=== PATIENT | male | born 1940 | race Caucasian/White ===

== ENCOUNTER 2016-04-27 11:10 | Inpatient (IN) ==
--- NOTE | 2016-04-26 21:06 | Discharge Summary ---
<Cristy Grady - Last Filed: 04/26/16 21:04> Date of Encounter: 04/26/16 - Discharge Diagnosis (1) Shoulder pain, right Priority: Primary Status: Acute Qualifiers: Chronicity: chronic Qualified Code(s): M25.511 - Pain in right shoulder; G89.29 - Other chronic pain (2) COPD (chronic obstructive pulmonary disease) Priority: Secondary Status: Chronic Qualifiers: COPD type: unspecified COPD Qualified Code(s): J44.9 - Chronic obstructive pulmonary disease, unspecified (3) Diabetes Priority: Secondary Status: Chronic Qualifiers: Diabetes mellitus type: type 2 Diabetes mellitus complication status: with unspecified complications Diabetes mellitus intermodal dispatcher insulin use: unspecified longterm insulin use status Qualified Code(s): E11.8 - Type 2 diabetes mellitus with unspecified complications (4) Hypercholesteremia Priority: Secondary Status: Chronic (5) Hypertension Priority: Secondary Status: Chronic Qualifiers: Hypertension type: essential hypertension Qualified Code(s): I10 - Essential (primary) hypertension (6) Obesities, morbid Priority: Secondary Status: Chronic Qualifiers: Obesity type: unspecified obesity type Qualified Code(s): E66.01 - Morbid ( severe) obesity due to excess calories (7) Sleep apnea Priority: Secondary Status: Chronic Qualifiers: Sleep apnea type: unspecified type Qualified Code(s): G47.30 - Sleep apnea , unspecified - Discharge Medications Home Medications: Aspirin Enteric Coated [Aspirin EC] 81 mg PO QAM 10/12/14 [History] Insulin Glargine,Hum.rec.anlog [Lantus Solostar] 30 unit SQ BID 10/12/14 [ History] Lisinopril [Zestril] 40 mg PO QAM 10/12/14 [History] Metformin [Glucophage] 1,000 mg PO BID 10/12/14 [History] Metoprolol [Lopressor] 100 mg PO BID 10/12/14 [History] Omeprazole [PriLOSEC] 20 mg PO QAM 10/12/14 [History] Bimatoprost [Lumigan] 1 drop OP QPM 03/29/15 [History] Dorzolamide HCl/Timolol Maleat [Cosopt Eye Drops] 1 drop OP BID 03/29/15 [ History] GlipiZIDE XL (24 HR) [Glucotrol XL] 10 mg PO BID 03/29/15 [History] Meloxicam [Mobic] 15 mg PO DAILY 03/29/15 [History] Simvastatin [Zocor] 40 mg PO HS 03/29/15 [History] Cyanocobalamin/Folic Acid [Vitamin P39-Irhyq Acid Tablet] 1 each PO DAILY #30 tablet 03/31/15 [Rx] Amlodipine [Norvasc] 10 mg PO DAILY 05/27/15 [History] OxyCODONE Immed Rel [Roxicodone 5 MG] 5 - 10 mg PO Q6HR PRN #40 tablet 04/26/16 [Rx] Meloxicam [Mobic] 15 mg PO DAILY 04/27/16 [History] Multivit-Min/FA/Lycopen/Lutein [Men 50 Plus Multivitamin Tab] 1 tab PO DAILY [History] Thiamine Mononitrate [Vitamin B-1] 100 mg PO DAILY 04/27/16 [History] Allergies/Adverse Reactions: Allergies codeine Adverse Reaction (Mild, Verified 10/24/14 12:35) Agitated Primary care physician: Desi Valdez CNP - Patient Status Disposition: Home, Self-Care Condition: Fair - Discharge Instructions Follow Up With: Seth Lau MD [Partnered Physician] - 05/26/16 10:05 am Cristy Grady PAC [Physician Rf Manager] - 07/08/16 10:00 am Desi Valdez CNP [Primary Care Provider] - 07/08/16 10:30 am - Hospital Course Hospital course: Mr. 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 (3) COPD (chronic obstructive pulmonary disease) Priority: Secondary Status: Chronic Qualifiers: COPD type: unspecified COPD Qualified Code(s): J44.9 - Chronic obstructive pulmonary disease, unspecified (4) Diabetes Priority: Secondary Status: Chronic Qualifiers: Diabetes mellitus type: type 2 Diabetes mellitus complication status: with unspecified complications Diabetes mellitus longterm insulin use: unspecified intermodal dispatcher insulin use status Qualified Code(s): E11.8 - Type 2 diabetes mellitus with unspecified complications (5) Hypercholesteremia Priority: Secondary Status: Chronic (6) Hypertension Priority: Secondary Status: Chronic (7) Obesities, morbid Priority: Secondary Status: Chronic Qualifiers: Obesity type: unspecified obesity type Qualified Code(s): E66.01 - Morbid ( severe) obesity due to excess calories (8) Sleep apnea Priority: Secondary Status: Chronic Qualifiers: Sleep apnea type: unspecified type Qualified Code(s): G47.30 - Sleep apnea , unspecified (9) PRAVEENA (acute kidney injury) Priority: Primary Status: Acute (10) Acute respiratory failure with hypoxia Priority: Primary Status: Acute (11) Hospital acquired PNA Priority: Primary Status: Acute (12) Hypomagnesemia Priority: Primary Status: Acute (13) Hypoxia Priority: Primary Status: Acute (14) Leucocytosis Priority: Primary Status: Acute Qualifiers: Leukocytosis type: unspecified Qualified Code(s): D72.829 - Elevated white blood cell count, unspecified Labs on day of discharge: Labs from last 24 hours 04/27/16 11:38 POC Glucose 161 H Primary care physician: Desi Valdez CNP - Patient Status Functional capacity at discharge: independent ambulation Overall status at discharge: patient is progressing back to baseline - Hospital Course Hospital course: Mr. Willis is a 75 year old male patient's postoperative course has been complicated by pulmonary issues related to COPD intubation sustaining pneumonia. Also leukocytosis acute kidney injury and other multiple medical problems. Patient was aggressively treated by the medical team. Patient has no documented organism. Patient with a previous resection with plus to the right shoulder new implant is located. Patient discharged in stable condition - Time Spent with Patient Total time spent providing and/or coordinating discharge services:
--- NOTE | 2016-04-27 11:19 | History & Physical Report ---
Date of Encounter: 04/27/16 Time of Encounter: 11:19 24 Hour HP Update - Instructions Instructions: If the History and Physical is less than 30 days old and was completed prior to A.M. admission and or procedure and has NOT been updated on calendar day of procedure please complete this update prior to performing procedure. - Update Patient reports changes in Medical Condition: No Changes in assessment/condition: No Changes in Medication: No Preop tests/diagnostics Reviewed: Yes Surgery Remains Indicated: Yes Consent for Planned Operative Procedure(s) Verified: Yes - Pre-Operative Checklist Preoperative Checklist Indicated: No Prophylactic Antibiotic Ordered: Yes Is VTE Prophylaxis Indicated?: Yes
[2016-04-27] MEDS ORDERED: Albuterol 2.5 MG/3 ML NEBULIZER ONE (11:33)
[2016-04-27] MEDS ORDERED: Vancomycin 1,750 MG in D5% in Water 500 ML IVPB ONE (11:38)
[2016-04-27] MEDS ORDERED: Albuterol 2.5 MG/3 ML NEBULIZER IH ONE (11:38)
[2016-04-27] MEDS ORDERED: *HR* Midazolam HCl 2 MG/2 ML VIAL ONE (11:43)
[2016-04-27] MEDS ORDERED: *HR* FentaNYL (PF) 100 MCG/2 ML VIAL ONE ×2 (11:43→12:30)
[2016-04-27] MEDS ORDERED: *HR* Propofol 200 MG/20 ML VIAL IVP ONE (11:43)
[2016-04-27] MEDS: Ringers Solution, Lactated 1,000 ML IVC SCH ×2 (11:47→17:27)
--- NOTE | 2016-04-27 12:06 | Anesthesia Evaluation PreOp ---
Date of Encounter: 04/27/16 Time of Encounter: 12:04 - Past History Planned Operation: Right Total Shoulder Revision Cardiac History: HTN, Hyperlipidemia Pulmonary History: COPD, AVILA Dx SIEBEL CONSULTANT History: Other (DM neuropathy, Herniated disc) Other Medical History: Diabetes Type II Anesthesia History: No Prior Anesthetic Complications, Past Anesthesia (Right shoulder x 2, R. shoulder I&D) Alcohol Use: none Drug use: none, other Medications and Allergies Aspirin Enteric Coated [Aspirin EC] 81 mg PO QAM 10/12/14 [History] Insulin Glargine,Hum.rec.anlog [Lantus Solostar] 30 unit SQ BID 10/12/14 [ History] Lisinopril [Zestril] 40 mg PO QAM 10/12/14 [History] Metformin [Glucophage] 1,000 mg PO BID 10/12/14 [History] Metoprolol [Lopressor] 100 mg PO BID 10/12/14 [History] Omeprazole [PriLOSEC] 20 mg PO QAM 10/12/14 [History] Bimatoprost [Lumigan] 1 drop OP QPM 03/29/15 [History] Dorzolamide HCl/Timolol Maleat [Cosopt Eye Drops] 1 drop OP BID 03/29/15 [ History] GlipiZIDE XL (24 HR) [Glucotrol XL] 10 mg PO BID 03/29/15 [History] Meloxicam [Mobic] 15 mg PO DAILY 03/29/15 [History] Simvastatin [Zocor] 40 mg PO HS 03/29/15 [History] Cyanocobalamin/Folic Acid [Vitamin U49-Knaor Acid Tablet] 1 each PO DAILY #30 tablet 03/31/15 [Rx] Amlodipine [Norvasc] 10 mg PO DAILY 05/27/15 [History] OxyCODONE Immed Rel [Roxicodone 5 MG] 5 - 10 mg PO Q6HR PRN #40 tablet 04/26/16 [Rx] Meloxicam [Mobic] 15 mg PO DAILY 04/27/16 [History] Multivit-Min/FA/Lycopen/Lutein [Men 50 Plus Multivitamin Tab] 1 tab PO DAILY [History] Thiamine Mononitrate [Vitamin B-1] 100 mg PO DAILY 04/27/16 [History] Allergies codeine Adverse Reaction (Mild, Verified 10/24/14 12:35) Agitated - Meds/Allergy Pre-op Review Medications Reviewed: Yes Allergies Reviewed: Yes Beta Blockers on Current Med List: Yes If Beta Blockers taken, Date/Time (Last Dose taken): 08:30 04/27/16 Anesthesia Results - Labs Laboratory Tests 04/13/16 04/13/16 04/13/16 11:15 11:15 11:15 WBC 6.9 Hgb 12.4 L Hct 39.6 Plt Count 255 INR 1.0 Sodium 139 Potassium 4.4 Chloride 104 Carbon Dioxide 25 BUN 14 Creatinine 0.91 - Imaging EKG: image reviewed (SR, 1st degree AV block, LAFB, LAD, Poor R wave progression ) Anesthesia Exam O2 Sat Height 1.73 m Height 1.73 m Height 1.73 m Weight 110.223 kg Weight 110.223 kg Weight 110.223 kg O2 Sat by Pulse Oximetry 94 Vital Signs Temp Pulse Resp BP Pulse Ox 98.2 F 88 18 130/77 94 L 04/27/16 11:41 04/27/16 11:41 04/27/16 11:41 04/27/16 11:41 04/27/16 11:41 Height: 5'8'' Weight: 240# NPO (# of Hours): > 8 hrs Pain Scale: 0 Pain Scale Used: Numeric (1 - 10) - HEENT Pupil (Motor): Pupils equal, EOMI Mallampati: III Teeth: Edentulous Oral Opening: Greater than 3 - SIEBEL CONSULTANT LOC: Oriented SIEBEL CONSULTANT Motor: Normal RUE, Normal LUE, Normal RLE, Normal LLE, Normal Face SIEBEL CONSULTANT Sensory: Normal: RUE, LUE, RLE, LLE, Face - Cardiac Rhythm: Regular Murmur: None JVD: No Carotid Bruit: No Anesthesia Assess/Plan ASA Score: 3 Modified [place] Scale for Level of Consciousness: Cooperative, oriented, and tranquil Anesthetic Plan: General, Regional (Brachial Plexus Block) Autologous Blood: Yes Monitoring Plan: Standard Monitors Recovery Plan: PACU
[2016-04-27] MEDS ORDERED: *HR* Labetalol 100 MG/20 ML MDV IVP PRN (12:11)
[2016-04-27] MEDS ORDERED: *HR* HYDROmorphone (PF) 1 MG/ML SYRINGE IVP PRN (12:11)
[2016-04-27] MEDS ORDERED: Ondansetron 4 MG/2 ML VIAL IVP ONE (12:11)
[2016-04-27] MEDS ORDERED: Lidocaine -MPF 2% 5 ML VIAL INFILT ONE (12:29)
[2016-04-27] MEDS ORDERED: Bupivacaine/EPI 1:200k 0.25%PF 10 ML VIAL INFILT ONE (12:30)
[2016-04-27] MEDS ORDERED: ROPIVACAINE HCL/PF 0.5% 30 ML VIAL ONE (12:30)
[2016-04-27] MEDS ORDERED: Ipratropium/Albuterol Neb 3 ML ONE ×3 (12:55→20:10)
[2016-04-27] MEDS ORDERED: Lidocaine -MPF 4% 5 ML AMPUL ONE (13:02)
--- NOTE | 2016-04-27 13:34 | Anesthesia Procedures ---
Date of Encounter: 04/27/16 Time of Encounter: 12:48 Procedures: Anesthesia - Nerve Block Procedure Date: 04/27/16 Time: 12:48 Surgical Procedure: right revision reversal ball and socket total shoulder Checklist: Correct Patient Identifier, Correct procedure, History checked Correct side: Right Monitor Applied: BP, Pulse Oximetry Supplemental Oxygen via Nasal Cannula (L/min): 3 Sedation: Fentanyl (mcg): 100 Indication: Post Op Analgesia Block Type: Interscalene (15), Supraclavicular (15), Other (scp 10ml) Catheter placed: No Sterile Technique: Yes Ultrasound used: Yes Anatomy identified: Yes Visual spread of Local: Yes Neuro Stimulation: Yes Nerve Stimulator Range: 0.2 - 0.4 mA Blood on Needle Aspiration: No Smooth Injection of Local: Yes Pain with Injection of Local: No Prep: Chlorhexadine Needle: 22 x 50 mm Stimuplex Local: Ropivacaine (30ml), Other (10 .25%bup with epi, 5 of 2%lido,) Volume (cc): 45 Number of Attempts: 1 Complications: None/effective block Vitals: vss though out, block per request of surgeon
[2016-04-27] MEDS ORDERED: EPHEDrine 50 MG/ML VIAL ONE (13:36)
[2016-04-27] MEDS ORDERED: Vancomycin 1,000 MG VIAL ONE (14:46)
--- NOTE | 2016-04-27 15:03 | Orthopedic Operative Note ---
Date of procedure: 04/27/16 Pre-op diagnosis: Painful dysfunctional right arm secondary to resection arthroplasty Post-op diagnosis: same Procedure: Procedure: Revision right total shoulder replacement reverse Estimated blood loss: 300 mL Hardware: Biomet 25 mm baseplate 1 6.5 central screw 4 4.5 peripheral screw, 41 mm +6 glenosphere here 12 x 100 stem 60 mm segment 42 proximal body +10 44 tray +3 41 retentive Jennifer Dictation of procedure: Patient brought to the operating room placed on the operating room table. After general anesthesia was administered the patient was placed in the modified beachchair position all pressure points padded appropriately the right upper extremity was prepped and draped in the sterile surgical fashion. The patient received IV antibiotics prior to skin incision. Incision was made through the old incision through skin and subcutaneous tissue hemostasis was obtained Bovie cautery. An extended deltopectoral approach was performed identifying the distal humeral shaft. Patient had extensive scar tissue cultures were obtained scar tissue was excised once the humerus is was exposed attention then turned to exposing the glenoid. Fluoroscopy was used to help identify the location due to the excessive scar tissue. Once the glenoid was exposed and defined there was a large bony formation that was excised from the posterior aspect of the upper arm in the pseudocapsule area. This is up subperiosteal dissection. Attention turned to the humerus. With fluoroscopic assistance it was reamed up to the 12 x 100 trial had good fit and fixation after broaching. Anterior and posterior Bankart retractors used to expose the glenoid the glenoid guide was seated the centering hole was made the glenoid was reamed the baseplate was seated and was fixed with one central screw 6.5 mm and 4 peripheral 4.5 screws. The baseplate was irrigated and dried and a 41 offset glenoid was seated and secured this was a +6 lateralized. The humeral trial was then assembled a 60 segment a 42 proximal body had stability with a +10 tray and the 41+3 constrained Jennifer. All components removed the stem was impacted in place followed by assembly of the body and the segment together on the back table which were impacted to the stem. Trial reduction with the +10 tray and the 41 constrained revealed excellent stability trials were removed real components were assembled on the back table and implanted. Patient had excellent stability. The wounds for 2 minutes with a Betadine saline solution. It was irrigated out to his pulse irrigation. Vancomycin para was present within the wound. The deltopectoral interval was closed with a running #2 FiberWire suture subcutaneous tissue closed deep and 1 PDS suture superficially with 0 PDS suture skin was closed with skin [place] patient placed in a sterile dressing abducted sling. Patient was extubated and transferred to recovery room stable condition. Anesthesia: GETA Surgeon: Seth Lau Condition: stable Disposition: PACU
[2016-04-27 15:56] LABS: Hematocrit 36.8 % (37.5-50.1); Hemoglobin 11.8 g/dL (12.9-16.9)
--- NOTE | 2016-04-27 17:38 | Anesthesia Evaluation Post Op ---
Date of Encounter: 04/27/16 Time of Encounter: 17:35 - Vital Signs Vital Signs: Vital Signs/O2 Sat/Glucose, Most Current Temp Pulse Resp BP Pulse Ox 04/27/16 17:17 98.7 F 85 28 101/69 97 04/27/16 17:07 86 28 92/62 95 04/27/16 16:57 85 26 77/55 95 04/27/16 16:47 98.8 F 87 24 78/57 94 L 04/27/16 16:37 89 24 101/65 91 L 04/27/16 16:27 95 24 110/75 93 L 04/27/16 16:17 98.9 F 91 24 113/71 91 L 04/27/16 16:07 92 24 103/72 91 L 04/27/16 15:57 89 24 106/70 91 L 04/27/16 15:47 98.9 F 87 24 118/74 95 04/27/16 15:37 87 20 111/74 97 04/27/16 15:27 92 20 119/74 93 L 04/27/16 15:17 99.3 F 93 16 124/81 88 L - Lungs Lungs: Clear Ascult./Percussion - Airway Airway: Non-obstructed - Cardiovascular Regular Rate - Mental Status Mental Status: Alert & Oriented, Answers Appropriately - Pain Pain Scale: 0 - Nausea Vomiting Nausea Vomiting: Not Present - Hydration Hydration: Ice chips - Discharge PostOp Status: Transfer Patient to floor
[2016-04-27] MEDS ORDERED: *HR* Enoxaparin 30 MG/0.3 ML SYRINGE SQ SCH (18:00)
[2016-04-27] MEDS ORDERED: Ringers Solution, Lactated 1,000 ML IVC SCH (18:06)
[2016-04-27] MEDS ORDERED: Ondansetron 4 MG/2 ML VIAL IVP PRN (18:06)
[2016-04-27] MEDS ORDERED: Dextrose Gel 15 GM PO PRN ×2 (18:06)
[2016-04-27] MEDS ORDERED: Sennosides 8.6 MG TABLET PO PRN (18:06)
[2016-04-27] MEDS ORDERED: D5% in Water 1,000 ML IV PRN (18:06)
[2016-04-27] MEDS ORDERED: NON-FORMULARY MEDICATION 1 EACH EACH (Bimatoprost [Lumigan] 1 DROP) OP SCH (18:06)
[2016-04-27] MEDS ORDERED: *HR* Dextrose 50 % in Water (Syg) 50 ML SYRINGE IVP PRN (18:06)
[2016-04-27] MEDS ORDERED: MOM Conc 10 ML UD.LIQ PO PRN (18:06)
[2016-04-27] MEDS ORDERED: Naloxone 0.4 MG/ML INJ IVP PRN (18:06)
[2016-04-27] MEDS ORDERED: Acetaminophen 325 MG TABLET PO PRN (18:06)
[2016-04-27] MEDS: Insulin LISPRO 300 UNITS/3 ML VIAL SQ SCH (18:58)
[2016-04-27] MEDS ORDERED: Ipratropium/Albuterol Neb 3 ML IH ONE (20:05)
[2016-04-27] MEDS: Metoprolol 100 MG TABLET PO SCH (21:54)
[2016-04-27] MEDS: Dorzolamide/Timolol OPTH 10 ML BOTTLE RIGHT EYE SCH (21:54)
[2016-04-27] MEDS: Insulin DETEMIR 100 UNIT/ML X5UNITS SQ SCH (21:54)
[2016-04-27] MEDS: ceFAZolin 2,000 MG in D5% in Water 100 ML IVPB SCH (21:55)
[2016-04-27] MEDS: Latanoprost 2.5 ML BOTTLE BOTH EYES SCH (21:55)
[2016-04-27] MEDS: *HR* HYDROmorphone (PF) 1 MG/ML SYRINGE IVP PRN (22:05)
[2016-04-28] MEDS: *HR* HYDROmorphone (PF) 1 MG/ML SYRINGE IVP PRN ×2 (01:20→22:45)
[2016-04-28] MEDS ORDERED: Ipratropium/Albuterol Neb 3 ML IH PRN (02:09)
--- NOTE | 2016-04-28 02:14 | Internal Medicine Consult Note ---
Date of Encounter: 04/28/16 Time of Encounter: 02:14 - Assessment and Plan (1) Acute respiratory failure with hypoxia Current Visit: Yes Status: Acute Assessment and plan: Pt is on BiPAP therapy. CXR showed limited lung volumes - repeat CXR requested and is pending at this time. If there is evidence of pneumonia - need IV antibiotics. (2) Hypomagnesemia Current Visit: Yes Status: Acute Assessment and plan: Replenish magnesium (3) Acute kidney injury Current Visit: Yes Status: Acute Assessment and plan: Treat with IV fluids. Monitor renal function. Hold metformin and meloxicam at this time. (4) Leucocytosis Current Visit: Yes Status: Acute Assessment and plan: Likely due to post surgical. But need to exclude infection. CXR and urinalysis requested - pending. Qualifiers: Leukocytosis type: unspecified Qualified Code(s): D72.829 - Elevated white blood cell count, unspecified Internal Medicine - CN: HPI - Data of Consult Patient: new to practice Consult date: 04/28/16 Requesting Physician: Seth Lau MD - Consult Narrative Reason for consult: Hypoxia History of present illness: Mr. Willis is a 75 year old male with past medical history significant for diabetes mellitus, hypertension, hyperlipidemia, glaucoma and arthritis was admitted to orthopedic service following revision of right total shoulder arthroplasty. Hospitalist team was consulted for management of hypoxia. RN reports that the patient had hypoxia with oxygen saturation in the mid 80s prior to his surgical procedure. Tonight, he is noted to have low oxygen saturations and required BiPAP therapy. Pt denies significant shortness of breath, cough, expectoration, chest pain, nausea, vomiting. He is not able to communicate well while he is on BiPAP Review of systems: 10 point review of systems attempted but limited as the pt is on BiPAP. Negative except for the above mentioned. Past Med Surg Social Fam HX - Past Medical History Medical history: arthritis, diabetes, GERD, glaucoma, hyperlipidemia, hypertension, other Psychiatric history: anxiety - Past Surgical History Surgical History: cholecystectomy, orthopedic, other, other - Social History Smoking Status: Former smoker Smokeless Tobacco Status: No Alcohol use: none Drug use: none, other - Family History Father Adopted: No Family Member Ethnicity: Non- Living Status: Unknown Hx Family Cardiac Disorders: Yes (HTN) Hx Family Respiratory Disorders: No Hx Family Cancer: No Hx Family GI Disorders: No Hx Family Endocrine Disorder: Yes (DM type 2) Hx Family Neuromuscular Disorders: No Hx Family Neurologic Disorders: No Hx Family HEENT Disorders: No Hx Family Autoimmune Disorders: No Internal Medicine - CN: Meds Aspirin Enteric Coated [Aspirin EC] 81 mg PO QAM 10/12/14 [History] Insulin Glargine,Hum.rec.anlog [Lantus Solostar] 30 unit SQ BID 10/12/14 [ History] Lisinopril [Zestril] 40 mg PO QAM 10/12/14 [History] Metformin [Glucophage] 1,000 mg PO BID 10/12/14 [History] Metoprolol [Lopressor] 100 mg PO BID 10/12/14 [History] Omeprazole [PriLOSEC] 20 mg PO QAM 10/12/14 [History] Bimatoprost [Lumigan] 1 drop OP QPM 03/29/15 [History] Dorzolamide HCl/Timolol Maleat [Cosopt Eye Drops] 1 drop OP BID 03/29/15 [ History] GlipiZIDE XL (24 HR) [Glucotrol XL] 10 mg PO BID 03/29/15 [History] Meloxicam [Mobic] 15 mg PO DAILY 03/29/15 [History] Simvastatin [Zocor] 40 mg PO HS 03/29/15 [History] Cyanocobalamin/Folic Acid [Vitamin R47-Jbqkg Acid Tablet] 1 each PO DAILY #30 tablet 03/31/15 [Rx] Amlodipine [Norvasc] 10 mg PO DAILY 05/27/15 [History] OxyCODONE Immed Rel [Roxicodone 5 MG] 5 - 10 mg PO Q6HR PRN #40 tablet 04/26/16 [Rx] Meloxicam [Mobic] 15 mg PO DAILY 04/27/16 [History] Multivit-Min/FA/Lycopen/Lutein [Men 50 Plus Multivitamin Tab] 1 tab PO DAILY [History] Thiamine Mononitrate [Vitamin B-1] 100 mg PO DAILY 04/27/16 [History] Allergies codeine Adverse Reaction (Mild, Verified 10/24/14 12:35) Agitated Internal Medicine - CN: Exam - Constitutional Vitals: Temp Pulse Resp BP Pulse Ox 97.7 F 86 22 133/75 91 L 04/28/16 00:04 04/28/16 00:04 04/28/16 00:04 04/28/16 00:04 04/28/16 00:04 Exam: General: Not in acute distress at the time of my evaluation HEENT: BiPAP mask in place Neck: No obvious neck swellings Lungs: B/L air entry present. No significant wheeze present Cardiac: Regular rate and rhythm. No significant murmurs Abdomen: Soft, non tender. Bowel sounds present Neurological: Somnulent. arousable No gross localizing deficits Psych: Not aggressive or agitated Extremities: B/L leg edema present. Sling to the right arm. Skin: No generalized rash Internal Medicine - CN: Reslt - Labs CBC & Chem 7: 04/28/16 03:06 04/28/16 03:06 Labs: Short CBC 04/27/16 Range/Units 15:36 Hgb 11.8 L (12.9-16.9) g/dL Hct 36.8 L (37.5-50.1) % - EKG Data -: EKG Interpreted by Myself EKG shows normal: sinus rhythm Rate: tachycardia - EKG Data EKG comments: possible 1st degree AV block 04/28/16 06:22 - Impressions Impressions ITS Impressions Shoulder X-Ray 04/27/16 00:01 IMPRESSION: Status post reverse right shoulder replacement surgery. D/ / 04/27/2016 16:19:03 Betito Henning MD / schuyler Interpreting Provider: Betito Henning MD Shoulder X-Ray 04/27/16 13:15 IMPRESSION: Right shoulder revision arthroplasty with fluoroscopic guidance as above. D/ / Jaylen Win MD / Jaylen Win MD Interpreting Provider: Jaylen Win MD Chest X-Ray 04/28/16 01:47 IMPRESSION: Limited low lung volume portable chest with bibasilar airspace disease favored to represent atelectasis. Superimposed pneumonia cannot be excluded. A repeat study with deep inspiration may be useful when the patient is clinically able D/ / Yuri Jacinto MD / Yuri Jacinto MD Interpreting Provider: Yuri Jacinto MD Consult Discharge Plan - Plan Referrals: Seth Lau MD [Partnered Physician] - 05/26/16 10:05 am Cristy Grady PAC [Physician Civil Project Engineer] - 07/08/16 10:00 am Desi Valdez SOAPING MACHINE BACK TENDER [Primary Care Provider] - 07/08/16 10:30 am
[2016-04-28 02:37] LABS: ABG Base Excess 0.6 mEq/L (-2.0 to 3.0); ABG Oxygen Saturation 96 % (95-98); ABG PCO2 44 mmHg (35-45); ABG PH 7.38 pH Units (7.32-7.45); ABG PO2 84 mmHg (85-104); ABG TCO2 27.4 mEq/L (20-26)
[2016-04-28 02:38] LABS: Blood Gas FiO2 60 %
[2016-04-28] MEDS: ceFAZolin 2,000 MG in D5% in Water 100 ML IVPB SCH (02:50)
[2016-04-28 03:33] LABS: Hematocrit 35.7 % (37.5-50.1); Hemoglobin 11.2 g/dL (12.9-16.9); Mean Corpuscular HGB Conc 31.4 g/dL (31.6-35.5); Mean Corpuscular Hemoglobin 26.7 pg (28.0-33.3); Mean Corpuscular Volume 85.2 fL (83.0-100.0); Mean Platelet Volume 9.4 fL (9.4-12.4); Platelet Count 236 K/mcL (140-400); Red Blood Count 4.19 M/mcL (4.19-5.50); Red Cell Distribution Width 15.6 % (11.5-14.5)
[2016-04-28 03:52] LABS: Alanine Aminotransferase 29 Units/L (0-55); Albumin 3.1 g/dL (3.5-5.0); Albumin/Globulin Ratio 0.8 (1.1-2.2); Alkaline Phosphatase 62 Units/L (38-126); Aspartate Amino Transferase 26 Units/L (5-34); BUN/Creatinine Ratio 13 (6-26); Bilirubin,Total 0.5 mg/dL (0.2-1.2); Blood Urea Nitrogen 18 mg/dL (8-26); Calcium 8.2 mg/dL (8.6-10.8); Carbon Dioxide 23 mEq/L (19-29); Chloride 101 mEq/L (98-109); Globulin 3.7 g/dL (2.4-3.5); Glucose 217 mg/dL (70-99); Magnesium 1.3 mg/dL (1.6-2.6); Osmolality,Calculated 288 (280-300); Potassium 4.5 mEq/L (3.5-4.5); Sodium 135 mEq/L (136-145); Total Protein 6.8 g/dL (6.0-8.3); eGFR For African Americans > 60 (> 60); eGFR For Non-African Americans 50 (> 60)
[2016-04-28] MEDS ORDERED: Magnesium Sulfate 2 GM in D5% in Water 100 ML IVPB ONE (05:13)
[2016-04-28] MEDS: *HR* Enoxaparin 30 MG/0.3 ML SYRINGE SQ SCH ×2 (05:56→17:13)
[2016-04-28] MEDS: Ipratropium/Albuterol Neb 3 ML IH SCH ×4 (06:18→21:42)
--- NOTE | 2016-04-28 06:34 | Orthopedics Progress Note ---
Date of Encounter: 04/28/16 Time of Encounter: 06:32 - Assessment and Plan (1) Bone loss Current Visit: Yes Status: Acute (2) Shoulder pain, right Current Visit: No Status: Acute Qualifiers: Chronicity: chronic Qualified Code(s): M25.511 - Pain in right shoulder; G89.29 - Other chronic pain (3) COPD (chronic obstructive pulmonary disease) Current Visit: No Status: Chronic Qualifiers: COPD type: unspecified COPD Qualified Code(s): J44.9 - Chronic obstructive pulmonary disease, unspecified (4) Diabetes Current Visit: No Status: Chronic Qualifiers: Diabetes mellitus type: type 2 Diabetes mellitus complication status: with unspecified complications Diabetes mellitus petroleum terminal plant operator insulin use: unspecified care home insulin use status Qualified Code(s): E11.8 - Type 2 diabetes mellitus with unspecified complications (5) Hypercholesteremia Current Visit: No Status: Chronic (6) Obesities, morbid Current Visit: No Status: Chronic Qualifiers: Obesity type: unspecified obesity type Qualified Code(s): E66.01 - Morbid ( severe) obesity due to excess calories (7) Sleep apnea Current Visit: No Status: Chronic Qualifiers: Sleep apnea type: unspecified type Qualified Code(s): G47.30 - Sleep apnea , unspecified Subjective Interval history: Patient was seen this morning doing well exacerbation of COPD Afebrile vital signs stable. Operative extremity: Neurovascularly intact Dressing bloody drainage, change today Calves nontender Assessment and plan: Continue with postoperative care hematocrit 35 plan discharge tomorrow Objective Vital signs: Vital Signs Temp Pulse Resp BP Pulse Ox 04/28/16 04:00 97.8 F 81 24 135/75 96 04/28/16 00:04 97.7 F 86 22 133/75 91 L 04/27/16 20:45 97.5 F L 104 21 131/73 91 L 04/27/16 20:23 30 94 L 04/27/16 19:45 98.5 F 104 30 104/70 94 L 04/27/16 18:58 92 L 04/27/16 18:42 94 22 116/69 93 L 04/27/16 18:11 97.8 F 90 20 113/83 96 04/27/16 17:45 97.6 F 88 20 126/60 96 04/27/16 17:37 87 24 106/71 98 04/27/16 17:27 87 26 101/68 97 04/27/16 17:17 98.7 F 85 28 101/69 97 04/27/16 17:07 86 28 92/62 95 04/27/16 16:57 85 26 77/55 95 04/27/16 16:47 98.8 F 87 24 78/57 94 L 04/27/16 16:37 89 24 101/65 91 L 04/27/16 16:27 95 24 110/75 93 L 04/27/16 16:17 98.9 F 91 24 113/71 91 L 04/27/16 16:07 92 24 103/72 91 L 04/27/16 15:57 89 24 106/70 91 L 04/27/16 15:47 98.9 F 87 24 118/74 95 04/27/16 15:37 87 20 111/74 97 04/27/16 15:27 92 20 119/74 93 L 04/27/16 15:17 99.3 F 93 16 124/81 88 L 04/27/16 12:58 95 155/97 92 L 04/27/16 12:21 89 125/85 94 L 04/27/16 11:41 98.2 F 88 18 130/77 94 L Intake and Output 04/27/16 04/27/16 04/28/16 15:59 23:59 07:59 Intake Total 1340 / 1340 100 / 100 Output Total 200 / 200 400 / 400 Balance -200 / -200 940 / 940 100 / 100 Intake: IV Fluids 1100 / 1100 100 / 100 Lactated Ringers 1,000 ML 1000 / 1000 @ 25 mls/hr IVC .Q24H BOZENA Rx#:[id number] Ancef 2,000 MG In 100 / 100 100 / 100 Dextrose 5% 100 ML @ 200 mls/hr IVPB Q8H BOZENA Rx#: [id number] Oral 240 / 240 Output: Urine 400 / 400 Estimated Blood Loss 200 / 200 Other: Weight 110.223 kg Blood Glucose* 182 225 - Labs CBC & BMP: 04/28/16 03:06 04/28/16 03:06 Labs: Abnormal lab results WBC 14.2 K/mcL (4.3-11.1) H 04/28/16 03:06 Hgb 11.2 g/dL (12.9-16.9) L 04/28/16 03:06 Hct 35.7 % (37.5-50.1) L 04/28/16 03:06 MCH 26.7 pg (28.0-33.3) L 04/28/16 03:06 MCHC 31.4 g/dL (31.6-35.5) L 04/28/16 03:06 RDW 15.6 % (11.5-14.5) H 04/28/16 03:06 ABG pO2 84 mmHg (85-104) L 04/28/16 02:30 ABG Total CO2 27.4 mEq/L (20-26) H 04/28/16 02:30 Sodium 135 mEq/L (136-145) L 04/28/16 03:06 Creatinine 1.39 mg/dL (0.72-1.25) H 04/28/16 03:06 Est GFR (Non-Af Amer) 50 (> 60) L 04/28/16 03:06 Glucose 217 mg/dL (70-99) H 04/28/16 03:06 POC Glucose 225 (58-89) H 04/27/16 20:13 Calcium 8.2 mg/dL (8.6-10.8) L 04/28/16 03:06 Magnesium 1.3 mg/dL (1.6-2.6) L 04/28/16 03:06 B-Natriuretic Peptide 132 pg/mL (0-100) H 04/28/16 03:06 Albumin 3.1 g/dL (3.5-5.0) L 04/28/16 03:06 Globulin 3.7 g/dL (2.4-3.5) H 04/28/16 03:06 Albumin/Globulin Ratio 0.8 (1.1-2.2) L 04/28/16 03:06 - VTE Documentation of Mechanical Device: Venous foot pump, device Consult Discharge Plan - Plan Referrals: Seth Lau MD [Partnered Physician] - 05/26/16 10:05 am Cristy Grady, PAC [Physician Window Covering Sales Consultant] - 07/08/16 10:00 am Desi Valdez, GRANTS ANALYST [Primary Care Provider] - 07/08/16 10:30 am
[2016-04-28] MEDS ORDERED: *HR* Metformin 500 MG TABLET PO SCH (08:00)
[2016-04-28] MEDS: Lisinopril 20 MG TABLET PO SCH (08:13)
[2016-04-28] MEDS: amLODIPine 5 MG TABLET PO SCH (08:13)
[2016-04-28] MEDS: *HR* OxyCODONE Immed Rel 5 MG TABLET PO PRN ×3 (08:14→20:38)
[2016-04-28] MEDS: *HR* GlipiZIDE XL (24 HR) 10 MG TABLET PO SCH ×2 (08:15→17:13)
[2016-04-28] MEDS: Aspirin Enteric Coated 81 MG Tablet PO SCH (08:15)
[2016-04-28] MEDS: Thiamine (B-1) 100 MG TABLET PO SCH (08:15)
[2016-04-28] MEDS: Multivit/Ca/Min/Fe/FA 1 TAB TABLET PO SCH (08:15)
[2016-04-28] MEDS: Cyanocobalamin (B-12) 1,000 MCG TABLET PO SCH (08:15)
[2016-04-28] MEDS: Insulin LISPRO 300 UNITS/3 ML VIAL SQ SCH ×3 (08:16→17:13)
[2016-04-28] MEDS: 0.9 % Sodium Chloride 1,000 ML IVC SCH (08:17)
--- NOTE | 2016-04-28 09:41 | Internal Med Progress Note ---
Date of Encounter: 04/28/16 Time of Encounter: 09:39 - Assessment and plan (1) Hypoxia Current Visit: Yes Status: Acute Assessment and plan: s/p revision of right total shoulder arthroplasty. was noted to be hypoxic, still requiring 6 l of oxygen , spo2 low 90s. has h/o AVILA, non compliant with CPAP. CXR done reviewed, shows low lung volumes with no signs of pneumonia, just possible atelectasis. he denies chest pain or sob, low prob for PE..lung exam with no wheeezing. abg shows no hypercarbia, has hypoxia only. hypoxia most likely 2/2 hypoventilation post surgical procedure. continue to titrate o2 via nasal cannula, adjust pain meds for better pain control. incentive spirometry encouraged , avoid lying in bed and to sit on the chair as tolerated. early ambulation emphasized. DVT prophylaxis. If above measures faile to improve oxygenation, will get CT chest. (2) Shoulder pain, right Current Visit: Yes Status: Acute Assessment and plan: management as per ortho Qualifiers: Chronicity: chronic Qualified Code(s): M25.511 - Pain in right shoulder; G89.29 - Other chronic pain (3) Diabetes Current Visit: No Status: Chronic Qualifiers: Diabetes mellitus type: type 2 Diabetes mellitus complication status: with unspecified complications Diabetes mellitus intermediate card tender insulin use: unspecified intermediate card tender insulin use status Qualified Code(s): E11.8 - Type 2 diabetes mellitus with unspecified complications (4) Sleep apnea Current Visit: No Status: Chronic Assessment and plan: emphasized the use of CPAP at home , does not seem to be interested and says everyone has AVILA. Qualifiers: Sleep apnea type: unspecified type Qualified Code(s): G47.30 - Sleep apnea , unspecified - Time Spent With Patient 25 - 35 minutes - Subjective Interval history: Seen at the bedside, complaining of some pain on the right shoulder. Sitting on the chair, was transitioned to nasal cannula and on 6 L this morning. Has been on BiPAP last night. Chest x-ray did not show any signs of pneumonia. Denies any chest pain or cough or shortness of breath. Appears in no acute respiratory distress. - Constitutional Vitals: Temp Pulse Resp BP Pulse Ox 99.7 F H 82 20 112/71 95 04/28/16 06:37 04/28/16 08:08 04/28/16 06:37 04/28/16 09:32 04/28/16 06:37 General appearance: Present: A&O X 3, no acute distress Exam: Neck supple. Chest bilateral clear, no added sounds. CVS S1-S2, no murmurs rubs or gallops. Abdomen soft, obese, nontender, bowel sounds are present. Extremities no edema, right shoulder brace present, mild decreased ROM neuro- no focal defecits/ Internal Medicine: Result - Labs CBC & Chem 7: 04/28/16 03:06 04/28/16 03:06 Labs: Short CBC 04/27/16 04/28/16 Range/Units 15:36 03:06 WBC 14.2 H (4.3-11.1) K/mcL Hgb 11.8 L 11.2 L (12.9-16.9) g/dL Hct 36.8 L 35.7 L (37.5-50.1) % Plt Count 236 (140-400) K/mcL BMP 04/28/16 03:06 Sodium 135 L Potassium 4.5 Chloride 101 Carbon Dioxide 23 BUN 18 Creatinine 1.39 H Glucose 217 H Calcium 8.2 L Liver Function 04/28/16 Range/Units 03:06 Total Bilirubin 0.5 (0.2-1.2) mg/dL AST 26 (5-34) Units/L ALT 29 (0-55) Units/L Alkaline Phosphatase 62 (38-126) Units/L Albumin 3.1 L (3.5-5.0) g/dL - ABG Interpretation ABG results: ABG ABG pH 7.38 pH Units (7.32-7.45) 04/28/16 02:30 ABG pCO2 44 mmHg (35-45) 04/28/16 02:30 ABG pO2 84 mmHg (85-104) L 04/28/16 02:30 ABG O2 Saturation 96 % (95-98) 04/28/16 02:30 - Impressions Impressions Shoulder X-Ray 04/27/16 00:01 IMPRESSION: Status post reverse right shoulder replacement surgery. D/ / 04/27/2016 16:19:03 Betito Henning MD / schuyler Interpreting Provider: Betito Henning MD Shoulder X-Ray 04/27/16 13:15 IMPRESSION: Right shoulder revision arthroplasty with fluoroscopic guidance as above. D/ / Jaylen Win MD / Jaylen Win MD Interpreting Provider: Jaylen Win MD Chest X-Ray 04/28/16 01:47 IMPRESSION: Limited low lung volume portable chest with bibasilar airspace disease favored to represent atelectasis. Superimposed pneumonia cannot be excluded. A repeat study with deep inspiration may be useful when the patient is clinically able. D/ / 04/28/2016 07:22:51 Yuri Jacinto MD / schuyler Interpreting Provider: Yuri Jacinto MD Chest X-Ray 04/28/16 05:09 IMPRESSION: Low lung volumes with improved bibasilar atelectasis. D/ / Eligio Yang MD / Eligio Yang MD Interpreting Provider: Eligio Yang MD - VTE Documentation of Mechanical Device: Venous foot pump, device Consult Discharge Plan - Plan Referrals: Seth Lau MD [Partnered Physician] - 05/26/16 10:05 am Cristy Grady PAC [Physician Radial Router Operator] - 07/08/16 10:00 am Desi Valdez CNP [Primary Care Provider] - 07/08/16 10:30 am
[2016-04-28] MEDS: Metoprolol 100 MG TABLET PO SCH ×2 (10:02→20:39)
[2016-04-28] MEDS: Dorzolamide/Timolol OPTH 10 ML BOTTLE RIGHT EYE SCH ×2 (10:02→20:38)
[2016-04-28] MEDS: Insulin DETEMIR 100 UNIT/ML X5UNITS SQ SCH ×2 (10:38→20:39)
--- NOTE | 2016-04-28 16:34 | Electrocardiograph Report ---
[place] [id number] Test Date: 2016-04-27 Pat Name: Manoj Willis Department: 114 Room: [facility] Gender: M Senior Planning Manager: : 1940 Requested By: Seth Lau Order Number: [id number] Reading MD: Misael Palmer Measurements Intervals [place] Rate: 103 P: 255 NV: 201 QRS: -47 QRSD: 118 T: 40 QT: 343 QTc: 403 Interpretive Statements SINUS TACHYCARDIA FIRST DEGREE AV BLOCK MODERATE VOLTAGE CRITERIA FOR LVH INTRAVENTRICULAR CONDUCTION DELAY Electronically Signed On 04-28-2016 16:32:39 EST by Misael Palmer
--- NOTE | 2016-04-28 17:55 | Event Note ---
Date of Encounter: 04/28/16 Time of Encounter: 17:45 Patient awake, alert and sitting up about to eat dinner. No concerns or questions at this time other than the drainage on dressing. Patient had active drainage with bottom 25% of optifoam saturated. Optifoam removed and source of active drainage found in distal portion of incision. added 4 [place] to this area. No further active drainage expressed with palpation around this area. New optifoam dressing applied. Patient tolerated this well.
[2016-04-28 17:56] LABS: ABG Base Excess 1.3 mEq/L (-2.0 to 3.0); ABG HCO3 26.6 mEQ/L (21-27); ABG Oxygen Saturation 84 % (95-98); ABG PCO2 44 mmHg (35-45); ABG PH 7.39 pH Units (7.32-7.45)
[2016-04-28 17:57] LABS: Blood Gas FiO2 32 %; Blood Gas Liter Flow 3 L/MIN
[2016-04-28 18:00] LABS: ABG PO2 49 mmHg (85-104)
[2016-04-28 20:34] LABS: Bilirubin,Urine Negative (Negative); Blood,Urine Negative (Negative); Clarity,Urine Cloudy (Clear); Color,Urine Yellow (Yellow); Glucose,Urine (UA) 100 mg/dL (Normal); Ketones,Urine Negative (Negative); Leukocyte Esterase,Urine Small (Negative); Nitrite,Urine Negative (Negative); PH,Urine 5.5 pH Units (5.0-8.0); Protein,Urine 30 mg/dL (Neg-Trace); Specific Gravity,Urine 1.027 (1.010-1.025); Urobilinogen,Urine Normal (Normal)
[2016-04-28 20:36] LABS: Bacteria,Urine None Seen per hpf (None-Few); Hyaline Casts,Urine None Seen per lpf (None-Few); Squamous Epithelial Cell,Urine Many per lpf (None-Few); WBC,Urine 15-30 per hpf (0-3)
[2016-04-28] MEDS: Latanoprost 2.5 ML BOTTLE BOTH EYES SCH (20:38)
[2016-04-29] MEDS: 0.9 % Sodium Chloride 1,000 ML IVC SCH ×2 (00:06→14:00)
[2016-04-29] MEDS ORDERED: Levofloxacin 750 MG/150 ML 750 MG/150 ML BAG IVPB ONE (00:59)
[2016-04-29 04:23] LABS: Basophils % 0.1 %; Eosinophils # 0.1 K/mcL (0.0-0.6); Eosinophils % 0.6 %; Hematocrit 33.1 % (37.5-50.1); Hemoglobin 10.2 g/dL (12.9-16.9); Immature Granulocytes % 0.5 % (0-4); Lymphocytes # 1.7 K/mcL (0.6-4.6); Lymphocytes % 12.6 %; Mean Corpuscular HGB Conc 30.8 g/dL (31.6-35.5); Mean Corpuscular Hemoglobin 26.7 pg (28.0-33.3); Mean Corpuscular Volume 86.6 fL (83.0-100.0); Mean Platelet Volume 8.8 fL (9.4-12.4); Monocytes # 1.6 K/mcL (0.0-1.3); Monocytes % 11.4 %; Neutrophils # 10.2 K/mcL (1.6-8.9); Platelet Count 214 K/mcL (140-400); Red Blood Count 3.82 M/mcL (4.19-5.50); Red Cell Distribution Width 15.7 % (11.5-14.5); Segmented Neutrophils % 74.8 %
[2016-04-29] MEDS: Ipratropium/Albuterol Neb 3 ML IH SCH ×4 (04:35→22:44)
[2016-04-29 04:38] LABS: BUN/Creatinine Ratio 18 (6-26); Blood Urea Nitrogen 25 mg/dL (8-26); Calcium 7.6 mg/dL (8.6-10.8); Carbon Dioxide 24 mEq/L (19-29); Chloride 99 mEq/L (98-109); Glucose 181 mg/dL (70-99); Magnesium 1.5 mg/dL (1.6-2.6); Osmolality,Calculated 283 (280-300); Potassium 4.3 mEq/L (3.5-4.5); Sodium 132 mEq/L (136-145); eGFR For African Americans > 60 (> 60); eGFR For Non-African Americans 50 (> 60)
[2016-04-29] MEDS: *HR* Enoxaparin 30 MG/0.3 ML SYRINGE SQ SCH ×2 (06:12→17:33)
[2016-04-29] MEDS: Thiamine (B-1) 100 MG TABLET PO SCH (07:46)
[2016-04-29] MEDS: *HR* GlipiZIDE XL (24 HR) 10 MG TABLET PO SCH ×2 (07:46→17:33)
[2016-04-29] MEDS: amLODIPine 5 MG TABLET PO SCH (07:46)
[2016-04-29] MEDS: Cyanocobalamin (B-12) 1,000 MCG TABLET PO SCH (07:46)
[2016-04-29] MEDS: Multivit/Ca/Min/Fe/FA 1 TAB TABLET PO SCH (07:47)
[2016-04-29] MEDS: Insulin LISPRO 300 UNITS/3 ML VIAL SQ SCH ×4 (07:47→22:48)
[2016-04-29] MEDS: Aspirin Enteric Coated 81 MG Tablet PO SCH (07:47)
[2016-04-29] MEDS: Lisinopril 20 MG TABLET PO SCH (07:47)
[2016-04-29] MEDS: Metoprolol 100 MG TABLET PO SCH ×2 (07:47→21:32)
--- NOTE | 2016-04-29 07:52 | Orthopedics Progress Note ---
Date of Encounter: 04/29/16 Time of Encounter: 07:51 - Assessment and Plan (1) Bone loss Current Visit: Yes Status: Acute (2) Shoulder pain, right Current Visit: No Status: Acute Qualifiers: Chronicity: chronic Qualified Code(s): M25.511 - Pain in right shoulder; G89.29 - Other chronic pain (3) COPD (chronic obstructive pulmonary disease) Current Visit: No Status: Chronic Qualifiers: COPD type: unspecified COPD Qualified Code(s): J44.9 - Chronic obstructive pulmonary disease, unspecified (4) Diabetes Current Visit: No Status: Chronic Qualifiers: Diabetes mellitus type: type 2 Diabetes mellitus complication status: with unspecified complications Diabetes mellitus exterminator insulin use: unspecified senior care insulin use status Qualified Code(s): E11.8 - Type 2 diabetes mellitus with unspecified complications (5) Hypercholesteremia Current Visit: No Status: Chronic (6) Obesities, morbid Current Visit: No Status: Chronic Qualifiers: Obesity type: unspecified obesity type Qualified Code(s): E66.01 - Morbid ( severe) obesity due to excess calories (7) Sleep apnea Current Visit: No Status: Chronic Qualifiers: Sleep apnea type: unspecified type Qualified Code(s): G47.30 - Sleep apnea , unspecified Subjective Interval history: Patient was seen this morning still with breathing issues related to his COPD. Afebrile vital signs stable. Operative extremity: Neurovascularly intact Dressing clean dry and intact Calves nontender Assessment and plan: Continue with postoperative care continue to monitor his breathing for discharge tomorrow Objective Vital signs: Vital Signs Temp Pulse Resp BP Pulse Ox 04/29/16 07:12 98.9 F 100 18 128/76 92 L 04/29/16 05:28 99.8 F H 89 20 118/77 94 L 04/29/16 04:36 22 93 L 04/29/16 00:36 99.7 F H 82 16 111/73 95 04/28/16 21:44 23 98 04/28/16 18:16 100 04/28/16 17:35 90 L 04/28/16 15:46 18 90 L 04/28/16 15:09 18 90 L 04/28/16 14:42 99.8 F H 84 20 113/72 85 L 04/28/16 14:17 93 L 04/28/16 12:26 91 L 02/28/17 11:23 99.2 F 79 20 122/77 93 L 04/28/16 11:12 92 L 04/28/16 10:37 20 87 L 04/28/16 10:36 92 L 04/28/16 10:27 90 L 04/28/16 09:58 93 90 L 04/28/16 09:32 112/71 04/28/16 08:08 82 99/67 Intake and Output 04/28/16 04/28/16 04/29/16 15:59 23:59 07:59 Intake Total 120 / 120 1000 / 1000 Output Total 425 / 425 300 / 300 200 / 200 Balance -305 / -305 700 / 700 -200 / -200 Intake: IV Fluids 1000 / 1000 0.9 % Sodium Chloride 1, 1000 / 1000 000 ML @ 80 mls/hr IVC . [id number] Rx#: [id number] Oral 120 / 120 Output: Urine 425 / 425 300 / 300 200 / 200 Other: Meal Lunch Percent of Meal Consumed 75% Blood Glucose* 257 144 180 - Labs CBC & BMP: 04/29/16 04:06 04/29/16 04:06 Labs: Abnormal lab results WBC 13.6 K/mcL (4.3-11.1) H 04/29/16 04:06 RBC 3.82 M/mcL (4.19-5.50) L 04/29/16 04:06 Hgb 10.2 g/dL (12.9-16.9) L 04/29/16 04:06 Hct 33.1 % (37.5-50.1) L 04/29/16 04:06 MCH 26.7 pg (28.0-33.3) L 04/29/16 04:06 MCHC 30.8 g/dL (31.6-35.5) L 04/29/16 04:06 RDW 15.7 % (11.5-14.5) H 04/29/16 04:06 MPV 8.8 fL (9.4-12.4) L 04/29/16 04:06 Neutrophils # 10.2 K/mcL (1.6-8.9) H 04/29/16 04:06 Monocytes # 1.6 K/mcL (0.0-1.3) H 04/29/16 04:06 ABG pO2 49 mmHg (85-104) L* 04/28/16 17:50 ABG Total CO2 28.0 mEq/L (20-26) H 04/28/16 17:50 ABG O2 Saturation 84 % (95-98) L 04/28/16 17:50 Sodium 132 mEq/L (136-145) L 04/29/16 04:06 Creatinine 1.39 mg/dL (0.72-1.25) H 04/29/16 04:06 Est GFR (Non-Af Amer) 50 (> 60) L 04/29/16 04:06 Glucose 181 mg/dL (70-99) H 04/29/16 04:06 POC Glucose 180 (58-89) H 04/29/16 07:11 Calcium 7.6 mg/dL (8.6-10.8) L 04/29/16 04:06 Magnesium 1.5 mg/dL (1.6-2.6) L 04/29/16 04:06 B-Natriuretic Peptide 132 pg/mL (0-100) H 04/28/16 03:06 Albumin 3.1 g/dL (3.5-5.0) L 04/28/16 03:06 Globulin 3.7 g/dL (2.4-3.5) H 04/28/16 03:06 Albumin/Globulin Ratio 0.8 (1.1-2.2) L 04/28/16 03:06 Urine Clarity Cloudy (Clear) A 04/28/16 20:25 Ur Specific [place] 1.027 (1.010-1.025) H 04/28/16 20:25 Urine Protein 30 mg/dL (Neg-Trace) H 04/28/16 20:25 Urine Glucose (UA) 100 mg/dL (Normal) H 04/28/16 20:25 Ur Leukocyte Esterase Small (Negative) H 04/28/16 20:25 Urine Microscopic RBC 5-15 per hpf (0-3) H 04/28/16 20:25 Urine Microscopic WBC 15-30 per hpf (0-3) H 04/28/16 20:25 Ur Squamous Epith Cells Many per lpf (None-Few) H 04/28/16 20:25 Ur Culture Indicated? YES (NO) A 04/28/16 20:25 - VTE Documentation of Mechanical Device: Venous foot pump, device Consult Discharge Plan - Plan Referrals: Seth Lau MD [Partnered Physician] - 05/26/16 10:05 am Cristy Grady PAC [Physician Furnace Helper] - 07/08/16 10:00 am Desi Valdez CNP [Primary Care Provider] - 07/08/16 10:30 am
[2016-04-29] MEDS: Insulin DETEMIR 100 UNIT/ML X5UNITS SQ SCH ×2 (07:55→21:32)
[2016-04-29] MEDS: Dorzolamide/Timolol OPTH 10 ML BOTTLE RIGHT EYE SCH ×2 (07:55→21:32)
--- NOTE | 2016-04-29 09:50 | Internal Med Progress Note ---
Date of Encounter: 04/29/16 Time of Encounter: 09:47 - Assessment and plan (1) Hypoxia Current Visit: Yes Status: Acute Assessment and plan: s/p revision of right total shoulder arthroplasty. medicine consulted for hypoxia, has h/o AVILA, non compliant with CPAP. CTA done yesterday shows no PE but showed b/l atelectasis vs pneumonia. he denies chest pain or sob, low prob for PE..lung exam with no wheeezing. will emperically start on IV antibiotics as he has a temp spike of 103 now. blood cx x2, send urine for strep and legionella antigen. incentive spirometry encouraged DVT prophylaxis. (2) Shoulder pain, right Current Visit: Yes Status: Acute Assessment and plan: management as per ortho Qualifiers: Chronicity: chronic Qualified Code(s): M25.511 - Pain in right shoulder; G89.29 - Other chronic pain (3) Diabetes Current Visit: No Status: Chronic Qualifiers: Diabetes mellitus type: type 2 Diabetes mellitus complication status: with unspecified complications Diabetes mellitus snf insulin use: unspecified snf insulin use status Qualified Code(s): E11.8 - Type 2 diabetes mellitus with unspecified complications (4) Sleep apnea Current Visit: No Status: Chronic Assessment and plan: emphasized the use of CPAP at home , does not seem to be interested and says everyone has AVILA. Qualifiers: Sleep apnea type: unspecified type Qualified Code(s): G47.30 - Sleep apnea , unspecified (5) Hospital acquired PNA Current Visit: Yes Status: Acute Assessment and plan: as in hypoxia. was intubated for the orthopedic surgery. may have acquired from that, currently temp of 103. have started IV antibiotics vanco, zosyn and levoflox. follow blood cx, sputum for gram stain and cx if he brings out any. - Time Spent With Patient 25 - 35 minutes - Subjective Interval history: Seen at the bedside, complaining of some pain on his hips. Sitting on the chair, was transitioned to nasal cannula, now at 3 l. was placed on BIPAP last night as he desated to 80s ABG at that time showed po2 of 49 CTA was done which was negative for PE, it shows b/l consolidation s/o atelectasis. Denies any chest pain or cough or shortness of breath. Appears in no acute respiratory distress. - Constitutional Vitals: Temp Pulse Resp BP Pulse Ox 98.9 F 100 18 128/76 92 L 04/29/16 07:12 04/29/16 07:12 04/29/16 07:12 04/29/16 07:12 04/29/16 07:12 General appearance: Present: A&O X 3, no acute distress Exam: Neck supple. Chest bilateral clear, no added sounds. CVS S1-S2, no murmurs rubs or gallops. Abdomen soft, obese, nontender, bowel sounds are present. Extremities no edema, right shoulder brace present, mild decreased ROM neuro- no focal defecits/ Internal Medicine: Result - Labs CBC & Chem 7: 04/29/16 04:06 04/29/16 04:06 Labs: Short CBC 04/29/16 Range/Units 04:06 WBC 13.6 H (4.3-11.1) K/mcL Hgb 10.2 L (12.9-16.9) g/dL Hct 33.1 L (37.5-50.1) % Plt Count 214 (140-400) K/mcL Neutrophils # 10.2 H (1.6-8.9) K/mcL BMP 04/28/16 04/29/16 19:07 04:06 Sodium 132 L Potassium 4.3 Chloride 99 Carbon Dioxide 24 BUN 25 Creatinine 1.46 H 1.39 H Glucose 181 H Calcium 7.6 L Urine 04/28/16 Range/Units 20:25 Urine Color Yellow (Yellow) Urine Clarity Cloudy A (Clear) Urine pH 5.5 (5.0-8.0) pH Units Ur Specific [place] 1.027 H (1.010-1.025) Urine Protein 30 H (Neg-Trace) mg/dL Urine Glucose (UA) 100 H (Normal) mg/dL - ABG Interpretation ABG results: ABG ABG pH 7.39 pH Units (7.32-7.45) 04/28/16 17:50 ABG pCO2 44 mmHg (35-45) 04/28/16 17:50 ABG pO2 49 mmHg (85-104) L* 04/28/16 17:50 ABG O2 Saturation 84 % (95-98) L 04/28/16 17:50 - Impressions Impressions Shoulder X-Ray 04/28/16 06:23 IMPRESSION: Stable postsurgical changes from reversed right total shoulder arthroplasty. D/ / 04/28/2016 15:46:47 Braulio Hill MD / Chloe Fuller Interpreting Provider: Braulio Hill MD Chest CTA 04/28/16 18:25 IMPRESSION: No evidence of pulmonary embolism. Partial consolidation involving both lower lobes, the right middle lobe, and lingula. Findings may be related to atelectasis and/or pneumonia. D/ / Mago Foss MD / Mago Foss MD Interpreting Provider: Mago Foss MD - VTE Documentation of Mechanical Device: Venous foot pump, device Consult Discharge Plan - Plan Referrals: Seth Lau MD [Partnered Physician] - 05/26/16 10:05 am Cristy Grady, PAC [Physician District Manager In Training] - 07/08/16 10:00 am Desi Valdez, CAN FEEDER [Primary Care Provider] - 07/08/16 10:30 am
[2016-04-29] MEDS: *HR* OxyCODONE Immed Rel 5 MG TABLET PO PRN (11:30)
[2016-04-29] MEDS: *HR* HYDROmorphone (PF) 1 MG/ML SYRINGE IVP PRN (13:50)
[2016-04-29] MEDS: Piperacillin/Tazobactam 3.375 GM in D5% in Water (Mini-Bag+) 100 ML IVPB SCH ×2 (13:51→21:31)
[2016-04-29] MEDS ORDERED: Levofloxacin 500 MG/100 ML 500 MG/100 ML BAG IVPB SCH (16:14)
[2016-04-29] MEDS: Vancomycin 1,750 MG in D5% in Water 500 ML IVPB SCH (17:30)
[2016-04-29] MEDS ORDERED: Acetaminophen IV 1,000 MG/100 ML INFUS..BTL IVPB PRN (18:49)
[2016-04-29] MEDS: Latanoprost 2.5 ML BOTTLE BOTH EYES SCH (21:32)
[2016-04-29 22:10] LABS: VBG HCO3 24.3 mEq/L (21-27); VBG PH 7.37 pH Units (7.32-7.42)
[2016-04-30] MEDS: 0.9 % Sodium Chloride 1,000 ML IVC SCH ×2 (02:35→17:15)
[2016-04-30] MEDS: Ipratropium/Albuterol Neb 3 ML IH SCH ×4 (04:49→21:19)
[2016-04-30] MEDS: Vancomycin 1,750 MG in D5% in Water 500 ML IVPB SCH (04:51)
[2016-04-30 05:25] LABS: Basophils % 0.1 %; Hematocrit 29.1 % (37.5-50.1); Hemoglobin 9.4 g/dL (12.9-16.9); Immature Granulocytes % 0.9 % (0-4); Lymphocytes % 7.6 %; Mean Corpuscular HGB Conc 32.3 g/dL (31.6-35.5); Mean Corpuscular Hemoglobin 27.6 pg (28.0-33.3); Mean Corpuscular Volume 85.6 fL (83.0-100.0); Mean Platelet Volume 9.5 fL (9.4-12.4); Monocytes # 1.9 K/mcL (0.0-1.3); Monocytes % 8.3 %; Platelet Count 203 K/mcL (140-400); Red Cell Distribution Width 15.7 % (11.5-14.5); Segmented Neutrophils % 83.1 %
[2016-04-30 05:26] LABS: Lymphocytes # 1.7 K/mcL (0.6-4.6)
[2016-04-30] MEDS: Piperacillin/Tazobactam 3.375 GM in D5% in Water (Mini-Bag+) 100 ML IVPB SCH ×3 (05:39→20:04)
[2016-04-30] MEDS: *HR* Enoxaparin 30 MG/0.3 ML SYRINGE SQ SCH ×2 (05:39→16:57)
[2016-04-30 05:45] LABS: Calcium 7.7 mg/dL (8.6-10.8)
[2016-04-30 06:10] LABS: Potassium 4.3 mEq/L (3.5-4.5)
--- NOTE | 2016-04-30 08:12 | Orthopedics Progress Note ---
Date of Encounter: 04/30/16 Time of Encounter: 08:11 - Assessment and Plan (1) Bone loss Current Visit: Yes Status: Acute (2) Shoulder pain, right Current Visit: No Status: Acute Qualifiers: Chronicity: chronic Qualified Code(s): M25.511 - Pain in right shoulder; G89.29 - Other chronic pain (3) COPD (chronic obstructive pulmonary disease) Current Visit: No Status: Chronic Qualifiers: COPD type: unspecified COPD Qualified Code(s): J44.9 - Chronic obstructive pulmonary disease, unspecified (4) Diabetes Current Visit: No Status: Chronic Qualifiers: Diabetes mellitus type: type 2 Diabetes mellitus complication status: with unspecified complications Diabetes mellitus terminal operations manager insulin use: unspecified fci insulin use status Qualified Code(s): E11.8 - Type 2 diabetes mellitus with unspecified complications (5) Hypercholesteremia Current Visit: No Status: Chronic (6) Obesities, morbid Current Visit: No Status: Chronic Qualifiers: Obesity type: unspecified obesity type Qualified Code(s): E66.01 - Morbid ( severe) obesity due to excess calories (7) Sleep apnea Current Visit: No Status: Chronic Qualifiers: Sleep apnea type: unspecified type Qualified Code(s): G47.30 - Sleep apnea , unspecified Subjective Interval history: Patient was seen this morning still with breathing issues spiking fever to 103 elevated white count concern for hospital acquired pneumonia. Afebrile vital signs stable MAXIMUM TEMPERATURE 103. Operative extremity: Neurovascularly intact Dressing clean dry and intact Calves nontender Assessment and plan: Continue with postoperative care continue to monitor his breathing on IV antibiotics continue plan as per hospitalist Objective Vital signs: Vital Signs Temp Pulse Resp BP Pulse Ox 04/30/16 06:30 98.3 F 98 20 142/66 91 L 04/30/16 04:57 98.6 F 97 19 137/75 89 L 04/30/16 01:13 97.9 F 86 20 118/70 91 L 04/29/16 22:44 18 93 L 04/29/16 20:48 98.9 F 99 24 113/76 91 L 04/29/16 20:00 102.8 F H 64 26 128/72 96 04/29/16 16:21 24 124/73 100 04/29/16 15:24 103 F H 70 24 124/73 100 04/29/16 10:58 24 97 04/29/16 10:55 98.3 F 62 18 110/73 94 L Intake and Output 04/29/16 04/30/16 04/30/16 23:59 07:59 15:59 Intake Total 700 / 700 100 / 100 Output Total 500 / 500 250 / 250 Balance 200 / 200 -150 / -150 Intake: IV Fluids 700 / 700 100 / 100 Ofirmev 1,000 mg In 100 100 / 100 ml @ 400 mls/hr IVPB Q6HR PRN Rx#:[id number] Zosyn 3.375 GM In 100 / 100 100 / 100 Dextrose 5% (Minibag+) 100 ML 100 ML @ 25 mls/hr IVPB Q8H BOZENA Rx#: [id number] Vancocin 1,750 MG In 500 / 500 Dextrose 5% 500 ML @ 334. 014 mls/hr IVPB Q12H BOZENA Rx#:[id number] Oral 0 / 0 Output: Urine 250 / 250 Straight Cath 500 / 500 Other: Blood Glucose* 276 227 - Labs CBC & BMP: 04/30/16 05:00 04/30/16 05:00 Labs: Abnormal lab results WBC 22.9 K/mcL (4.3-11.1) H D 04/30/16 05:00 RBC 3.40 M/mcL (4.19-5.50) L 04/30/16 05:00 Hgb 9.4 g/dL (12.9-16.9) L 04/30/16 05:00 Hct 29.1 % (37.5-50.1) L 04/30/16 05:00 MCH 27.6 pg (28.0-33.3) L 04/30/16 05:00 RDW 15.7 % (11.5-14.5) H 04/30/16 05:00 Neutrophils # 19.0 K/mcL (1.6-8.9) H 04/30/16 05:00 Monocytes # 1.9 K/mcL (0.0-1.3) H 04/30/16 05:00 ABG pO2 49 mmHg (85-104) L* 04/28/16 17:50 ABG Total CO2 28.0 mEq/L (20-26) H 04/28/16 17:50 ABG O2 Saturation 84 % (95-98) L 04/28/16 17:50 VBG pO2 78 mmHg (25-40) H 04/29/16 22:00 Sodium 132 mEq/L (136-145) L 04/30/16 05:00 BUN 31 mg/dL (8-26) H 04/30/16 05:00 Creatinine 2.09 mg/dL (0.72-1.25) H D 04/30/16 05:00 Est GFR ( Amer) 38 (> 60) L 04/30/16 05:00 Est GFR (Non-Af Amer) 31 (> 60) L 04/30/16 05:00 Glucose 160 mg/dL (70-99) H 04/30/16 05:00 POC Glucose 227 (58-89) H 04/30/16 06:53 Calcium 7.7 mg/dL (8.6-10.8) L 04/30/16 05:00 Magnesium 1.5 mg/dL (1.6-2.6) L 04/29/16 04:06 B-Natriuretic Peptide 132 pg/mL (0-100) H 04/28/16 03:06 Albumin 3.1 g/dL (3.5-5.0) L 04/28/16 03:06 Globulin 3.7 g/dL (2.4-3.5) H 04/28/16 03:06 Albumin/Globulin Ratio 0.8 (1.1-2.2) L 04/28/16 03:06 Urine Clarity Cloudy (Clear) A 04/28/16 20:25 Ur Specific [place] 1.027 (1.010-1.025) H 04/28/16 20:25 Urine Protein 30 mg/dL (Neg-Trace) H 04/28/16 20:25 Urine Glucose (UA) 100 mg/dL (Normal) H 04/28/16 20:25 Ur Leukocyte Esterase Small (Negative) H 04/28/16 20:25 Urine Microscopic RBC 5-15 per hpf (0-3) H 04/28/16 20:25 Urine Microscopic WBC 15-30 per hpf (0-3) H 04/28/16 20:25 Ur Squamous Epith Cells Many per lpf (None-Few) H 04/28/16 20:25 Ur Culture Indicated? YES (NO) A 04/28/16 20:25 - VTE Documentation of Mechanical Device: Venous foot pump, device Consult Discharge Plan - Plan Referrals: Seth Lau MD [Partnered Physician] - 05/26/16 10:05 am Cristy Grady, PAC [Physician Timber Supervisor] - 07/08/16 10:00 am Desi Valdez CNP [Primary Care Provider] - 07/08/16 10:30 am
[2016-04-30] MEDS: Aspirin Enteric Coated 81 MG Tablet PO SCH (08:33)
[2016-04-30] MEDS: Multivit/Ca/Min/Fe/FA 1 TAB TABLET PO SCH (08:33)
[2016-04-30] MEDS: Thiamine (B-1) 100 MG TABLET PO SCH (08:33)
[2016-04-30] MEDS: *HR* GlipiZIDE XL (24 HR) 10 MG TABLET PO SCH ×2 (08:33→16:58)
[2016-04-30] MEDS: Lisinopril 20 MG TABLET PO SCH (08:33)
[2016-04-30] MEDS: Metoprolol 100 MG TABLET PO SCH ×2 (08:33→20:04)
[2016-04-30] MEDS: Cyanocobalamin (B-12) 1,000 MCG TABLET PO SCH (08:34)
[2016-04-30] MEDS: amLODIPine 5 MG TABLET PO SCH (08:36)
[2016-04-30] MEDS: Dorzolamide/Timolol OPTH 10 ML BOTTLE RIGHT EYE SCH ×2 (08:36→20:17)
[2016-04-30] MEDS: Insulin LISPRO 300 UNITS/3 ML VIAL SQ SCH ×4 (08:37→22:23)
[2016-04-30] MEDS: Insulin DETEMIR 100 UNIT/ML X5UNITS SQ SCH ×2 (08:42→22:23)
[2016-04-30] MEDS: *HR* OxyCODONE Immed Rel 5 MG TABLET PO PRN (08:42)
--- NOTE | 2016-04-30 10:04 | Internal Med Progress Note ---
Date of Encounter: 04/30/16 Time of Encounter: 10:02 - Assessment and plan (1) Sepsis Current Visit: Yes Status: Acute Assessment and plan: severe sepsis 2/2 HAP. leucocytosis of 22 today. follow blood cx and sputum results continue IV antibiotics,IV fluids Qualifiers: Sepsis type: sepsis due to unspecified organism Qualified Code(s): A41.9 - Sepsis, unspecified organism (2) Hypoxia Current Visit: Yes Status: Acute Assessment and plan: s/p revision of right total shoulder arthroplasty. medicine consulted for hypoxia, CTA done, did not show any PE. shows no PE but showed b/l atelectasis vs pneumonia. he denies chest pain or sob, low prob for PE..lung exam with no wheeezing. spiked temp of 103 yesterday, started on IV antibiotics. blood cx x2, send urine for strep and legionella antigen. incentive spirometry encouraged DVT prophylaxis. (3) Shoulder pain, right Current Visit: Yes Status: Acute Assessment and plan: management as per ortho Qualifiers: Chronicity: chronic Qualified Code(s): M25.511 - Pain in right shoulder; G89.29 - Other chronic pain (4) Diabetes Current Visit: No Status: Chronic Qualifiers: Diabetes mellitus type: type 2 Diabetes mellitus complication status: with unspecified complications Diabetes mellitus senior living insulin use: unspecified senior living insulin use status Qualified Code(s): E11.8 - Type 2 diabetes mellitus with unspecified complications (5) Sleep apnea Current Visit: No Status: Chronic Assessment and plan: emphasized the use of CPAP at home , does not seem to be interested and says everyone has AVILA. Qualifiers: Sleep apnea type: unspecified type Qualified Code(s): G47.30 - Sleep apnea , unspecified (6) Hospital acquired PNA Current Visit: Yes Status: Acute Assessment and plan: as in hypoxia. was intubated for the orthopedic surgery. may have acquired from that, no temp spike today. have started IV antibiotics vanco, zosyn and levoflox. will need to continue IV antibiotics follow blood cx, sputum for gram stain and cx. (7) PRAVEENA (acute kidney injury) Current Visit: Yes Status: Acute Assessment and plan: most likely 2/2 sepsis. will continue to monitor. - Time Spent With Patient 25 - 35 minutes - Subjective Interval history: Seen at the bedside Sitting on the chair, was able to answer questions appropriately. he denies chest pain but says he has cough though he is not bringing out too much on nasal cannula at 3-4 l and sating 91-92% does not appear to be in acute respiratory distress and is speaking in full sentences. - Constitutional Vitals: Temp Pulse Resp BP Pulse Ox 98.3 F 98 20 142/66 91 L 04/30/16 06:30 04/30/16 06:30 04/30/16 06:30 04/30/16 06:30 04/30/16 06:30 General appearance: Present: A&O X 3, no acute distress Exam: neck- supple chest- b/l decreased breath sounds at the bases, no wheezing or creptns cvs- s1 and s2, no mr//g abd- soft ,non tender, bs are present ext- no edema, right arm on arm splint neuro- no focal defecits, alert and awake and answers appropriately. Internal Medicine: Result - Labs CBC & Chem 7: 04/30/16 05:00 04/30/16 05:00 Labs: Short CBC 04/30/16 Range/Units 05:00 WBC 22.9 H D (4.3-11.1) K/mcL Hgb 9.4 L (12.9-16.9) g/dL Hct 29.1 L (37.5-50.1) % Plt Count 203 (140-400) K/mcL Neutrophils # 19.0 H (1.6-8.9) K/mcL BMP 04/30/16 05:00 Sodium 132 L Potassium 4.3 Chloride 101 Carbon Dioxide 21 BUN 31 H Creatinine 2.09 H D Glucose 160 H Calcium 7.7 L - ABG Interpretation ABG results: ABG ABG pH 7.39 pH Units (7.32-7.45) 04/28/16 17:50 ABG pCO2 44 mmHg (35-45) 04/28/16 17:50 ABG pO2 49 mmHg (85-104) L* 04/28/16 17:50 ABG O2 Saturation 84 % (95-98) L 04/28/16 17:50 - VTE Documentation of Mechanical Device: Venous foot pump, device Consult Discharge Plan - Plan Referrals: Seth Lau MD [Partnered Physician] - 05/26/16 10:05 am Cristy Grady, PAC [Physician Legal Administrative Assistant] - 07/08/16 10:00 am Desi Valdez SUPERVISOR HISTOLOGY [Primary Care Provider] - 07/08/16 10:30 am
--- NOTE | 2016-04-30 13:24 | Event Note ---
Date of Encounter: 04/30/16 Time of Encounter: 13:23 POD#3 Left Revision TSR 04/27/16 Patient is A&Ox3, continues with hypoxia and is now undergoing sepsis work up, with newly diagnosed HAP. He is on Vancomycin, Zosyn and Levaquin for coverage - awaiting blood cultures now. Dressing is 50% saturated - will change today. Warmth noted; no forearm tenderness or erythema noted. ROM limited due to restrictions. NV intact distally. Change dressing today, encouraged hand and wrist ROM. Continue IS. Continue management with hospitalist team. Patient voiced understanding, and comprehension as to why he is unable to be discharged at this time.
[2016-04-30] MEDS ORDERED: Levofloxacin 250 MG/50 ML 250 MG/50 ML BAG IVPB SCH (16:00)
[2016-04-30] MEDS: Latanoprost 2.5 ML BOTTLE BOTH EYES SCH (20:18)
[2016-05-01] MEDS ORDERED: Vancomycin 1,750 MG in D5% in Water 500 ML IVPB SCH (04:00)
[2016-05-01] MEDS: Ipratropium/Albuterol Neb 3 ML IH SCH ×4 (04:02→22:12)
[2016-05-01] MEDS: 0.9 % Sodium Chloride 1,000 ML IVC SCH ×2 (04:28→15:14)
[2016-05-01] MEDS: Piperacillin/Tazobactam 3.375 GM in D5% in Water (Mini-Bag+) 100 ML IVPB SCH ×3 (04:29→22:09)
[2016-05-01] MEDS: *HR* Enoxaparin 30 MG/0.3 ML SYRINGE SQ SCH ×2 (06:14→16:35)
--- NOTE | 2016-05-01 06:49 | Orthopedics Progress Note ---
Date of Encounter: 05/01/16 Time of Encounter: 06:49 - Assessment and Plan (1) Bone loss Current Visit: Yes Status: Acute (2) Shoulder pain, right Current Visit: No Status: Acute (3) COPD (chronic obstructive pulmonary disease) Current Visit: No Status: Chronic Qualifiers: COPD type: unspecified COPD Qualified Code(s): J44.9 - Chronic obstructive pulmonary disease, unspecified (4) Diabetes Current Visit: No Status: Chronic Qualifiers: Diabetes mellitus type: type 2 Diabetes mellitus complication status: with unspecified complications Diabetes mellitus termite technician insulin use: unspecified custodial insulin use status Qualified Code(s): E11.8 - Type 2 diabetes mellitus with unspecified complications (5) Hypercholesteremia Current Visit: No Status: Chronic (6) Obesities, morbid Current Visit: No Status: Chronic Qualifiers: Obesity type: unspecified obesity type Qualified Code(s): E66.01 - Morbid ( severe) obesity due to excess calories (7) Sleep apnea Current Visit: No Status: Chronic Qualifiers: Sleep apnea type: unspecified type Qualified Code(s): G47.30 - Sleep apnea , unspecified (8) PRAVEENA (acute kidney injury) Current Visit: Yes Status: Acute (9) Acute respiratory failure with hypoxia Current Visit: Yes Status: Acute (10) Hospital acquired PNA Current Visit: Yes Status: Acute (11) Hypomagnesemia Current Visit: Yes Status: Acute (12) Hypoxia Current Visit: Yes Status: Acute (13) Leucocytosis Current Visit: Yes Status: Acute Qualifiers: Leukocytosis type: unspecified Qualified Code(s): D72.829 - Elevated white blood cell count, unspecified Subjective Interval history: Patient was seen this morning doing much better this morning. Afebrile vital signs stable Operative extremity: Neurovascularly intact Dressing clean dry and intact Calves nontender Assessment and plan: Continue with postoperative care continue to monitor his breathing on IV antibiotics continue plan as per hospitalist Objective Vital signs: Vital Signs Temp Pulse Resp BP Pulse Ox 05/01/16 04:18 18 95 05/01/16 04:13 99.7 F H 88 21 151/80 93 L 05/01/16 00:44 99.2 F 92 20 171/79 91 L 04/30/16 21:20 18 90 L 04/30/16 21:01 93 L 04/30/16 18:52 98.9 F 96 18 143/76 91 L 04/30/16 15:27 18 90 L 04/30/16 14:16 98.9 F 87 16 143/87 96 04/30/16 11:23 98.7 F 82 16 148/86 93 L 04/30/16 10:55 18 90 L Intake and Output 04/30/16 04/30/16 05/01/16 15:59 23:59 07:59 Intake Total 1680 / 1680 150 / 150 1100 / 1100 Output Total 300 / 300 400 / 400 Balance 1380 / 1380 150 / 150 700 / 700 Intake: IV Fluids 1200 / 1200 150 / 150 1100 / 1100 0.9 % Sodium Chloride 1, 1000 / 1000 1000 / 1000 000 ML @ 100 mls/hr IVC . Q10H [facility] Rx#:[id number] Levaquin 250 MG/50 ML 250 50 / 50 mg In 50 ml @ 50 mls/hr IVPB Q24H [facility] Rx#: [id number] Levaquin 500mg/100mL 500 100 / 100 mg In 100 ml @ 100 mls/hr IVPB Q24H [facility] Rx#: [id number] Zosyn 3.375 GM In 100 / 100 100 / 100 100 / 100 Dextrose 5% (Minibag+) 100 ML 100 ML @ 25 mls/hr IVPB Q8H [facility] Rx#: [id number] Oral 480 / 480 Output: Urine 300 / 300 400 / 400 Other: Meal Breakfast Dinner Percent of Meal Consumed 75% 100% Blood Glucose* 196 - Labs CBC & BMP: 05/04/16 04:38 05/04/16 04:38 Labs: Abnormal lab results WBC 22.9 K/mcL (4.3-11.1) H D 04/30/16 05:00 RBC 3.40 M/mcL (4.19-5.50) L 04/30/16 05:00 Hgb 9.4 g/dL (12.9-16.9) L 04/30/16 05:00 Hct 29.1 % (37.5-50.1) L 04/30/16 05:00 MCH 27.6 pg (28.0-33.3) L 04/30/16 05:00 RDW 15.7 % (11.5-14.5) H 04/30/16 05:00 Neutrophils # 19.0 K/mcL (1.6-8.9) H 04/30/16 05:00 Monocytes # 1.9 K/mcL (0.0-1.3) H 04/30/16 05:00 ABG pO2 49 mmHg (85-104) L* 04/28/16 17:50 ABG Total CO2 28.0 mEq/L (20-26) H 04/28/16 17:50 ABG O2 Saturation 84 % (95-98) L 04/28/16 17:50 VBG pO2 78 mmHg (25-40) H 04/29/16 22:00 Sodium 132 mEq/L (136-145) L 04/30/16 05:00 BUN 31 mg/dL (8-26) H 04/30/16 05:00 Creatinine 2.09 mg/dL (0.72-1.25) H D 04/30/16 05:00 Est GFR ( Amer) 38 (> 60) L 04/30/16 05:00 Est GFR (Non-Af Amer) 31 (> 60) L 04/30/16 05:00 Glucose 160 mg/dL (70-99) H 04/30/16 05:00 POC Glucose 250 (58-89) H 04/30/16 20:52 Calcium 7.7 mg/dL (8.6-10.8) L 04/30/16 05:00 Magnesium 1.5 mg/dL (1.6-2.6) L 04/29/16 04:06 B-Natriuretic Peptide 132 pg/mL (0-100) H 04/28/16 03:06 Albumin 3.1 g/dL (3.5-5.0) L 04/28/16 03:06 Globulin 3.7 g/dL (2.4-3.5) H 04/28/16 03:06 Albumin/Globulin Ratio 0.8 (1.1-2.2) L 04/28/16 03:06 Urine Clarity Cloudy (Clear) A 04/28/16 20:25 Ur Specific Jbphh 1.027 (1.010-1.025) H 04/28/16 20:25 Urine Protein 30 mg/dL (Neg-Trace) H 04/28/16 20:25 Urine Glucose (UA) 100 mg/dL (Normal) H 04/28/16 20:25 Ur Leukocyte Esterase Small (Negative) H 04/28/16 20:25 Urine Microscopic RBC 5-15 per hpf (0-3) H 04/28/16 20:25 Urine Microscopic WBC 15-30 per hpf (0-3) H 04/28/16 20:25 Ur Squamous Epith Cells Many per lpf (None-Few) H 04/28/16 20:25 Ur Culture Indicated? YES (NO) A 04/28/16 20:25 Vancomycin Trough 21.8 mcg/mL (10-20) H* 05/01/16 02:35 - VTE Documentation of Mechanical Device: Venous foot pump, device Consult Discharge Plan - Plan Referrals: Seth Lau MD [Partnered Physician] - 05/26/16 10:05 am Cristy Grady, PAC [Physician Synoptic Meteorologist] - 07/08/16 10:00 am Desi Valdez FIRST AID TEACHER [Primary Care Provider] - 07/08/16 10:30 am
[2016-05-01 08:22] LABS: Basophils % 0.1 %; Eosinophils # 0.1 K/mcL (0.0-0.6); Eosinophils % 0.4 %; Hematocrit 28.7 % (37.5-50.1); Hemoglobin 9.2 g/dL (12.9-16.9); Immature Granulocytes % 1.3 % (0-4); Lymphocytes # 1.1 K/mcL (0.6-4.6); Mean Corpuscular HGB Conc 32.1 g/dL (31.6-35.5); Mean Corpuscular Hemoglobin 26.7 pg (28.0-33.3); Mean Corpuscular Volume 83.4 fL (83.0-100.0); Mean Platelet Volume 8.7 fL (9.4-12.4); Monocytes # 1.1 K/mcL (0.0-1.3); Monocytes % 7.1 %; Neutrophils # 13.4 K/mcL (1.6-8.9); Platelet Count 246 K/mcL (140-400); Red Blood Count 3.44 M/mcL (4.19-5.50); Red Cell Distribution Width 15.6 % (11.5-14.5); Segmented Neutrophils % 84.1 %
[2016-05-01] MEDS: Insulin DETEMIR 100 UNIT/ML X5UNITS SQ SCH ×2 (08:22→22:10)
[2016-05-01] MEDS: Thiamine (B-1) 100 MG TABLET PO SCH (08:23)
[2016-05-01] MEDS: amLODIPine 5 MG TABLET PO SCH (08:23)
[2016-05-01] MEDS: *HR* GlipiZIDE XL (24 HR) 10 MG TABLET PO SCH (08:23)
[2016-05-01] MEDS: Metoprolol 100 MG TABLET PO SCH ×2 (08:23→22:10)
[2016-05-01] MEDS: Cyanocobalamin (B-12) 1,000 MCG TABLET PO SCH (08:23)
[2016-05-01] MEDS: Lisinopril 20 MG TABLET PO SCH (08:23)
[2016-05-01] MEDS: Insulin LISPRO 300 UNITS/3 ML VIAL SQ SCH ×4 (08:24→22:10)
[2016-05-01] MEDS: Multivit/Ca/Min/Fe/FA 1 TAB TABLET PO SCH (08:24)
[2016-05-01] MEDS: Aspirin Enteric Coated 81 MG Tablet PO SCH (08:24)
[2016-05-01] MEDS: Dorzolamide/Timolol OPTH 10 ML BOTTLE RIGHT EYE SCH ×2 (08:25→22:10)
[2016-05-01 08:34] LABS: Calcium 7.5 mg/dL (8.6-10.8); Potassium 3.5 mEq/L (3.5-4.5)
[2016-05-01 08:49] LABS: ABG Base Excess -1.9 mEq/L (-2.0 to 3.0); ABG HCO3 21.3 mEQ/L (21-27); ABG Oxygen Saturation 95 % (95-98); ABG PCO2 30 mmHg (35-45); ABG PH 7.46 pH Units (7.32-7.45); ABG PO2 72 mmHg (85-104); ABG TCO2 22.2 mEq/L (20-26); Blood Gas FiO2 32 %; Blood Gas Liter Flow 3 L/MIN
[2016-05-01] MEDS ORDERED: Aminoglycoside Consult 1 EACH MC ONE (09:50)
--- NOTE | 2016-05-01 10:37 | Nephrology Consult Note ---
Date of Encounter: 05/01/16 Time of Encounter: 10:55 Assessment and Plan (1) PRAVEENA (acute kidney injury) Current Visit: Yes Status: Acute 75 y/o male with no prior history of kidney disease, POD 4. Patient has baseline SCr of 0.8-1.0. SCr has been noted to be increasing 04/28 1.39>2.09>2.25; GFR now 28 Patient has been treated with IV antibiotics: Vancomycin 04/29, ancef 2gm 04/27, levaquin 04/29 and 04/30 and Zosyn starting 04/29 Prior to admission patient was on Mobic 15mg daily. No NSAID use in the hospital Patient had CTA of the chest 04/28 04/29 UOP 700 04/30 UOP 550 05/01 UOP 850 so far Non-oliguric PRAVEENA most likely secondary to Contrast dye administration 04/28 in combination of antibiotic administration, specifically vancomycin in combination of zosyn vs secondary to sepsis. Last dose of vanc 04/30 at 0430 per clinical staff rn. 05/01 Vanc Trough 28.1 Plan: -IVF -Urine Na, Renal US -Recommend avoiding vancomycin, may use linezolid for MRSA coverage, will check MRSA swab -Trend SCr. Contrast dye administered 04/28 -Avoid nephrotoxic agents -Renally dose medications as necessary (2) Sepsis Current Visit: Yes Status: Acute Qualifiers: Sepsis type: sepsis due to unspecified organism Qualified Code(s): A41.9 - Sepsis, unspecified organism (3) Hospital acquired PNA Current Visit: Yes Status: Acute History of Present Illness - Reason for Consult Consult date: 05/01/16 Acute Kidney Injury Requesting physician: Vince Bear - History of Present Illness Mr. Willis is a 75 year old male with past medical history significant for diabetes mellitus, hypertension, hyperlipidemia, glaucoma and arthritis whio was admitted to orthopedic service following revision of right total shoulder arthroplasty 04/27/16. He has subsequently developed hypoxia, sepsis secondary to HAP and PRAVEENA. The hospitalist team has consulted nephrology for management of PRAVEENA. The patient denies a history of kidney disease and states that he has never had any issues in the past. He denies a family history of kidney disease as well. He denies abdominal pain, back pain, dysuria, hematuria. Past Med Surg Social Fam HX - Past Medical History Medical history: arthritis, diabetes, GERD, glaucoma, hyperlipidemia, hypertension, other Psychiatric history: anxiety - Past Surgical History Surgical History: cholecystectomy, orthopedic, other, other - Social History Smoking Status: Former smoker Smokeless Tobacco Status: No Alcohol use: none Drug use: none, other - Family History Father Adopted: No Family Member Ethnicity: Non- Living Status: Unknown Hx Family Cardiac Disorders: Yes (HTN) Hx Family Respiratory Disorders: No Hx Family Cancer: No Hx Family GI Disorders: No Hx Family Endocrine Disorder: Yes (DM type 2) Hx Family Neuromuscular Disorders: No Hx Family Neurologic Disorders: No Hx Family HEENT Disorders: No Hx Family Autoimmune Disorders: No Medications and Allergies Aspirin Enteric Coated [Aspirin EC] 81 mg PO QAM 10/12/14 [History] Insulin Glargine,Hum.rec.anlog [Lantus Solostar] 30 unit SQ BID 10/12/14 [ History] Lisinopril [Zestril] 40 mg PO QAM 10/12/14 [History] Metformin [Glucophage] 1,000 mg PO BID 10/12/14 [History] Metoprolol [Lopressor] 100 mg PO BID 10/12/14 [History] Omeprazole [PriLOSEC] 20 mg PO QAM 10/12/14 [History] Bimatoprost [Lumigan] 1 drop OP QPM 03/29/15 [History] Dorzolamide HCl/Timolol Maleat [Cosopt Eye Drops] 1 drop OP BID 03/29/15 [ History] GlipiZIDE XL (24 HR) [Glucotrol XL] 10 mg PO BID 03/29/15 [History] Meloxicam [Mobic] 15 mg PO DAILY 03/29/15 [History] Simvastatin [Zocor] 40 mg PO HS 03/29/15 [History] Cyanocobalamin/Folic Acid [Vitamin Q81-Oiesr Acid Tablet] 1 each PO DAILY #30 tablet 03/31/15 [Rx] Amlodipine [Norvasc] 10 mg PO DAILY 05/27/15 [History] OxyCODONE Immed Rel [Roxicodone 5 MG] 5 - 10 mg PO Q6HR PRN #40 tablet 04/26/16 [Rx] Meloxicam [Mobic] 15 mg PO DAILY 04/27/16 [History] Multivit-Min/FA/Lycopen/Lutein [Men 50 Plus Multivitamin Tab] 1 tab PO DAILY [History] Thiamine Mononitrate [Vitamin B-1] 100 mg PO DAILY 04/27/16 [History] Allergies codeine Adverse Reaction (Mild, Verified 10/24/14 12:35) Agitated Review of Systems All Systems: reviewed and no additional remarkable complaints except as stated Exam - Vital Signs Vital signs: Initial Vital Signs Temp Pulse Resp BP Pulse Ox 98.2 F 88 18 130/77 94 L 04/27/16 11:41 04/27/16 11:41 04/27/16 11:41 04/27/16 11:41 04/27/16 11:41 Vital Signs - Last 8 Hours Temp Pulse Resp BP Pulse Ox 05/01/16 07:34 99.9 F H 99 22 132/82 93 L 05/01/16 04:18 18 95 05/01/16 04:13 99.7 F H 88 21 151/80 93 L Intake and Output 04/30/16 05/01/16 05/01/16 23:59 07:59 15:59 Intake Total 150 / 150 1100 / 1100 600 / 600 Output Total 400 / 400 Balance 150 / 150 700 / 700 600 / 600 Intake: IV Fluids 150 / 150 1100 / 1100 0.9 % Sodium Chloride 1, 1000 / 1000 000 ML @ 100 mls/hr IVC . Q10H [facility] Rx#:[id number] Levaquin 250 MG/50 ML 250 50 / 50 mg In 50 ml @ 50 mls/hr IVPB Q24H [facility] Rx#: [id number] Zosyn 3.375 GM In 100 / 100 100 / 100 Dextrose 5% (Minibag+) 100 ML 100 ML @ 25 mls/hr IVPB Q8H [facility] Rx#: [id number] Oral 600 / 600 Output: Urine 400 / 400 Other: Meal Dinner Breakfast Percent of Meal Consumed 100% 50% Blood Glucose* 196 188 - General Appearance General appearance: well-developed, well-nourished, obese, moderate distress EENT: ATNC, mucous membranes moist Neck: no JVD, supple Respiratory: course breath sounds Cardiology: no murmurs, no rub, no gallops, edema (trace), regular rate, regular rhythm, normal S1, normal S2 Gastrointestinal: normoactive bowel sounds, no tenderness, no guarding, obese Integumentary: no rash, warm and dry Neurologic: no focal deficit Musculoskeletal: no erythema, no cyanosis, no clubbing Additional Comments: right shoulder dressed and in brace s/p right shoulder surgery Psychiatric: mood/affect appropriate, cooperative Results - Lab Results 05/01/16 08:15 05/01/16 08:15 Most recent lab results ABG pH 7.46 pH Units (7.32-7.45) H 05/01/16 08:40 ABG pCO2 30 mmHg (35-45) L 05/01/16 08:40 ABG pO2 72 mmHg (85-104) L 05/01/16 08:40 ABG HCO3 21.3 mEQ/L (21-27) 05/01/16 08:40 ABG O2 Saturation 95 % (95-98) 05/01/16 08:40 Calcium 7.5 mg/dL (8.6-10.8) L 05/01/16 08:15 Magnesium 1.5 mg/dL (1.6-2.6) L 04/29/16 04:06 Consult Discharge Plan - Plan Referrals: Seth Lau MD [Partnered Physician] - 05/26/16 10:05 am Cristy Grady PAC [Physician Facility Technician] - 07/08/16 10:00 am Desi Valdez CNP [Primary Care Provider] - 07/08/16 10:30 am
[2016-05-01] MEDS: Sennosides 8.6 MG TABLET PO SCH (10:38)
[2016-05-01] MEDS: methylPREDNISolone 125 MG/2 ML VIAL IVP SCH ×3 (11:04→23:22)
[2016-05-01] MEDS ORDERED: Vancomycin 1,500 MG in D5% in Water 250 ML IVPB SCH (16:00)
[2016-05-01] MEDS: Levofloxacin 750 MG/150 ML 750 MG/150 ML BAG IVPB SCH (16:34)
--- NOTE | 2016-05-01 16:49 | Internal Med Progress Note ---
Date of Encounter: 05/01/16 Time of Encounter: 16:47 - Assessment and plan (1) Sepsis Current Visit: Yes Status: Acute Assessment and plan: severe sepsis 2/2 HAP, clinically better. leucocytosis has improved with IV atibiotics. repeat lactate was normal blood cx shows no growth. continue IV antibiotics,IV fluids Qualifiers: Sepsis type: sepsis due to unspecified organism Qualified Code(s): A41.9 - Sepsis, unspecified organism (2) Hypoxia Current Visit: Yes Status: Acute Assessment and plan: s/p revision of right total shoulder arthroplasty. medicine consulted for hypoxia, CTA done, did not show any PE. shows no PE but showed b/l atelectasis vs pneumonia. he denies chest pain or sob, low prob for PE..lung exam with no wheeezing. started on IV antibiotics for HAP. blood cx x2, urine for strep and legionella antigen is negative incentive spirometry encouraged DVT prophylaxis. 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 Qualifiers: Sleep apnea type: unspecified type Qualified Code(s): G47.30 - Sleep apnea , unspecified (6) Hospital acquired PNA Current Visit: Yes Status: Acute Assessment and plan: as in hypoxia. was intubated for the orthopedic surgery. may have acquired from that, no fever, leucocytes has improved. have started IV antibiotics vanco, zosyn and levoflox. will change IV vanco to linezulid given worsening PRAVEENA. (7) PRAVEENA (acute kidney injury) Current Visit: Yes Status: Acute Assessment and plan: most likely 2/2 sepsis. recent IV contrast and vanco use. apprecaite renal recommendation, will change vanco to linezolid. follow renal US, continue IVF. continue to monitor chem. - Time Spent With Patient 25 - 35 minutes - Subjective Interval history: Seen at the bedside appears in mild respiratory distress Sitting on the chair, was able to answer questions appropriately. he denies chest pain but says he has cough though he is not bringing out too much on nasal cannula at 3-4 l and sating 91-92% - Constitutional Vitals: Temp Pulse Resp BP Pulse Ox 98.5 F 85 20 135/74 94 L 05/01/16 16:37 05/01/16 16:37 05/01/16 16:37 05/01/16 16:37 05/01/16 16:37 General appearance: Present: A&O X 3, no acute distress Exam: neck- supple chest- b/l decreased breath sounds at the bases, no wheezing or creptns cvs- s1 and s2, no mr//g abd- soft ,non tender, bs are present ext- no edema, right arm on arm splint neuro- no focal defecits, alert and awake and answers appropriately. Internal Medicine: Result - Labs CBC & Chem 7: 05/01/16 08:15 05/01/16 08:15 Labs: Short CBC 05/01/16 Range/Units 08:15 WBC 15.9 H (4.3-11.1) K/mcL Hgb 9.2 L (12.9-16.9) g/dL Hct 28.7 L (37.5-50.1) % Plt Count 246 (140-400) K/mcL Neutrophils # 13.4 H (1.6-8.9) K/mcL BMP 05/01/16 08:15 Sodium 135 L Potassium 3.5 Chloride 103 Carbon Dioxide 19 BUN 33 H Creatinine 2.25 H Glucose 206 H Calcium 7.5 L - ABG Interpretation ABG results: ABG ABG pH 7.46 pH Units (7.32-7.45) H 05/01/16 08:40 ABG pCO2 30 mmHg (35-45) L 05/01/16 08:40 ABG pO2 72 mmHg (85-104) L 05/01/16 08:40 ABG O2 Saturation 95 % (95-98) 05/01/16 08:40 - Impressions Impressions Shoulder X-Ray 04/28/16 06:23 IMPRESSION: Stable postsurgical changes from reverse right total shoulder arthroplasty. D/ / 04/28/2016 15:46:47 Braulio Hill MD / Chloe Fuller Interpreting Provider: Braulio Hill MD - VTE Documentation of Mechanical Device: Venous foot pump, device Consult Discharge Plan - Plan Referrals: Seth Lau MD [Partnered Physician] - 05/26/16 10:05 am Cristy Grady, PAC [Physician Beauty Parlor Cleaner] - 07/08/16 10:00 am Desi Valdez NEW ACCOUNT INTERVIEWER [Primary Care Provider] - 07/08/16 10:30 am
[2016-05-01] MEDS: Latanoprost 2.5 ML BOTTLE BOTH EYES SCH (22:09)
[2016-05-02] MEDS: Ipratropium/Albuterol Neb 3 ML IH SCH ×4 (03:58→22:44)
[2016-05-02] MEDS: Piperacillin/Tazobactam 3.375 GM in D5% in Water (Mini-Bag+) 100 ML IVPB SCH ×3 (04:18→21:22)
[2016-05-02 04:58] LABS: Hematocrit 29.4 % (37.5-50.1); Hemoglobin 9.5 g/dL (12.9-16.9); Immature Granulocytes % 1.4 % (0-4); Lymphocytes % 6.9 %; Mean Corpuscular HGB Conc 32.3 g/dL (31.6-35.5); Mean Corpuscular Hemoglobin 26.9 pg (28.0-33.3); Mean Corpuscular Volume 83.3 fL (83.0-100.0); Mean Platelet Volume 9.3 fL (9.4-12.4); Monocytes % 2.6 %; Platelet Count 265 K/mcL (140-400); Red Blood Count 3.53 M/mcL (4.19-5.50); Red Cell Distribution Width 15.7 % (11.5-14.5); Segmented Neutrophils % 88.9 %
[2016-05-02 04:59] LABS: Basophils % 0.2 %; Monocytes # 0.4 K/mcL (0.0-1.3); Neutrophils # 13.2 K/mcL (1.6-8.9)
[2016-05-02] MEDS ORDERED: Vancomycin 1,000 MG in D5% in Water 250 ML IVPB SCH (05:00)
[2016-05-02 05:16] LABS: Calcium 7.8 mg/dL (8.6-10.8)
[2016-05-02] MEDS: *HR* Enoxaparin 30 MG/0.3 ML SYRINGE SQ SCH (05:25)
[2016-05-02] MEDS: methylPREDNISolone 125 MG/2 ML VIAL IVP SCH ×3 (08:47→23:06)
[2016-05-02] MEDS: Metoprolol 100 MG TABLET PO SCH ×2 (08:48→21:18)
[2016-05-02] MEDS: Thiamine (B-1) 100 MG TABLET PO SCH (08:48)
[2016-05-02] MEDS: Cyanocobalamin (B-12) 1,000 MCG TABLET PO SCH (08:48)
[2016-05-02] MEDS: Multivit/Ca/Min/Fe/FA 1 TAB TABLET PO SCH (08:48)
[2016-05-02] MEDS: amLODIPine 5 MG TABLET PO SCH (08:48)
[2016-05-02] MEDS: Sennosides 8.6 MG TABLET PO SCH (08:48)
[2016-05-02] MEDS: Aspirin Enteric Coated 81 MG Tablet PO SCH (08:48)
[2016-05-02] MEDS: Insulin LISPRO 300 UNITS/3 ML VIAL SQ SCH ×6 (08:56→21:33)
[2016-05-02] MEDS: Dorzolamide/Timolol OPTH 10 ML BOTTLE RIGHT EYE SCH ×2 (09:02→21:29)
[2016-05-02] MEDS: 0.9 % Sodium Chloride 1,000 ML IVC SCH ×2 (10:00→23:06)
[2016-05-02] MEDS: Insulin DETEMIR 100 UNIT/ML X5UNITS SQ SCH ×2 (10:01→21:18)
[2016-05-02] MEDS: Chloraseptic Spray 177 ML BOTTLE MM PRN ×3 (11:49→23:07)
--- NOTE | 2016-05-02 12:53 | Nephrology Progress Note ---
Date of Encounter: 05/02/16 Time of Encounter: 12:51 - Assessment and Plan (1) PRAVEENA (acute kidney injury) Current Visit: Yes Status: Acute good urine output. Creatinine stable. Anticipate improvement. Avoid nephrotoxins. (2) Hospital acquired PNA Current Visit: Yes Status: Acute Continue antibiotics. Per primary team. (3) Diabetes Current Visit: No Status: Chronic Per primary team. Qualifiers: Diabetes mellitus type: type 2 Diabetes mellitus complication status: with unspecified complications Diabetes mellitus medical terminologist insulin use: unspecified alf insulin use status Qualified Code(s): E11.8 - Type 2 diabetes mellitus with unspecified complications (4) Obesities, morbid Current Visit: No Status: Chronic outpatient management. Qualifiers: Obesity type: unspecified obesity type Qualified Code(s): E66.01 - Morbid ( severe) obesity due to excess calories Subjective Principal diagnosis: PRAVEENA Interval history: Patient seen. Family is at the bedside. Patient is eating lunch. He has no new complaints. ROS stable. He gives a history of occasional loose stools and frequent urination at night. Objective - Vital Signs Vital signs: Vital Signs Temp Pulse Resp BP Pulse Ox 05/02/16 10:31 97.7 F 67 18 129/71 99 05/02/16 10:29 21 90 L 05/02/16 09:24 94 L 05/02/16 07:00 97.8 F 86 20 103/62 93 L 05/02/16 03:58 16 95 05/02/16 03:51 98 F 87 28 120/73 95 05/02/16 01:15 28 93 L 05/01/16 23:02 97.8 F 91 24 155/74 95 05/01/16 22:12 16 94 L 05/01/16 19:03 98.3 F 68 21 151/74 93 L 05/01/16 16:37 98.5 F 85 20 135/74 94 L Intake and Output 05/01/16 05/02/16 05/02/16 23:59 07:59 15:59 Intake Total 910 / 910 1100 / 1100 760 / 760 Output Total 1400 / 1400 1100 / 1100 575 / 575 Balance -490 / -490 0 / 0 185 / 185 Intake: IV Fluids 550 / 550 1100 / 1100 400 / 400 0.9 % Sodium Chloride 1, 1000 / 1000 000 ML @ 100 mls/hr IVC . Q10H [facility] Rx#:[id number] Levaquin 750mg/150 mL 750 150 / 150 mg In 150 ml @ 100 mls/ hr IVPB Q48H [facility] Rx#: [id number] Zyvox 600mg/300mL 600 mg 300 / 300 300 / 300 In 300 ml @ 150 mls/hr IVPB Q12HR [facility] Rx#: [id number] Zosyn 3.375 GM In 100 / 100 100 / 100 100 / 100 Dextrose 5% (Minibag+) 100 ML 100 ML @ 25 mls/hr IVPB Q8H [facility] Rx#: [id number] Oral 360 / 360 360 / 360 Output: Urine 1400 / 1400 1100 / 1100 575 / 575 Other: Meal Dinner Breakfast Percent of Meal Consumed 100% 100% Blood Glucose* [phone] - General Appearance General appearance: Present: well-developed, well-nourished EENT: Present: ATNC Neck: Present: supple Additional Comments: respirations are unlabored. Cardiology: Present: regular rate Gastrointestinal: Present: obese Neurologic: Present: alert and oriented x3 Psychiatric: Present: mood/affect appropriate - Lab 05/02/16 04:15 05/02/16 04:15 Most recent lab results ABG pH 7.46 pH Units (7.32-7.45) H 05/01/16 08:40 ABG pCO2 30 mmHg (35-45) L 05/01/16 08:40 ABG pO2 72 mmHg (85-104) L 05/01/16 08:40 ABG HCO3 21.3 mEQ/L (21-27) 05/01/16 08:40 ABG O2 Saturation 95 % (95-98) 05/01/16 08:40 Calcium 7.8 mg/dL (8.6-10.8) L 05/02/16 04:15 Magnesium 1.5 mg/dL (1.6-2.6) L 04/29/16 04:06 Urine Sodium 28.0 mEq/L 05/01/16 14:10 - VTE Documentation of Mechanical Device: Venous foot pump, device Consult Discharge Plan - Plan Referrals: Seth Lau MD [Partnered Physician] - 05/26/16 10:05 am Cristy Grady PAC [Physician Edge Kitter] - 07/08/16 10:00 am Desi Valdez CNP [Primary Care Provider] - 07/08/16 10:30 am
--- NOTE | 2016-05-02 13:17 | Orthopedics Progress Note ---
Date of Encounter: 05/02/16 Time of Encounter: 13:15 Subjective Principal diagnosis: PRAVEENA Interval history: Patient comfortable right shoulder:sings are clean dry intact Right hand is neurovascularly intact, with mild stiffness and minimal swelling Continue medical management for pneumonia Continue and exercises and mobilization of shoulder Objective Vital signs: Vital Signs Temp Pulse Resp BP Pulse Ox 05/02/16 10:31 97.7 F 67 18 129/71 99 05/02/16 10:29 21 90 L 05/02/16 09:24 94 L 05/02/16 07:00 97.8 F 86 20 103/62 93 L 05/02/16 03:58 16 95 05/02/16 03:51 98 F 87 28 120/73 95 05/02/16 01:15 28 93 L 05/01/16 23:02 97.8 F 91 24 155/74 95 05/01/16 22:12 16 94 L 05/01/16 19:03 98.3 F 68 21 151/74 93 L 05/01/16 16:37 98.5 F 85 20 135/74 94 L Intake and Output 05/01/16 05/02/16 05/02/16 23:59 07:59 15:59 Intake Total 910 / 910 1100 / 1100 760 / 760 Output Total 1400 / 1400 1100 / 1100 575 / 575 Balance -490 / -490 0 / 0 185 / 185 Intake: IV Fluids 550 / 550 1100 / 1100 400 / 400 0.9 % Sodium Chloride 1, 1000 / 1000 000 ML @ 100 mls/hr IVC . Q10H [facility] Rx#:[id number] Levaquin 750mg/150 mL 750 150 / 150 mg In 150 ml @ 100 mls/ hr IVPB Q48H [facility] Rx#: [id number] Zyvox 600mg/300mL 600 mg 300 / 300 300 / 300 In 300 ml @ 150 mls/hr IVPB Q12HR [facility] Rx#: [id number] Zosyn 3.375 GM In 100 / 100 100 / 100 100 / 100 Dextrose 5% (Minibag+) 100 ML 100 ML @ 25 mls/hr IVPB Q8H [facility] Rx#: [id number] Oral 360 / 360 360 / 360 Output: Urine 1400 / 1400 1100 / 1100 575 / 575 Other: Meal Dinner Breakfast Percent of Meal Consumed 100% 100% Blood Glucose* [phone] Incision: clean and dry - Labs CBC & BMP: 05/02/16 04:15 05/02/16 04:15 Labs: Abnormal lab results WBC 14.8 K/mcL (4.3-11.1) H 05/02/16 04:15 RBC 3.53 M/mcL (4.19-5.50) L 05/02/16 04:15 Hgb 9.5 g/dL (12.9-16.9) L 05/02/16 04:15 Hct 29.4 % (37.5-50.1) L 05/02/16 04:15 MCH 26.9 pg (28.0-33.3) L 05/02/16 04:15 RDW 15.7 % (11.5-14.5) H 05/02/16 04:15 MPV 9.3 fL (9.4-12.4) L 05/02/16 04:15 Neutrophils # 13.2 K/mcL (1.6-8.9) H 05/02/16 04:15 Immature Plt Fraction 1.0 % (1.1-6.1) L 05/01/16 08:15 ABG pH 7.46 pH Units (7.32-7.45) H 05/01/16 08:40 ABG pCO2 30 mmHg (35-45) L 05/01/16 08:40 ABG pO2 72 mmHg (85-104) L 05/01/16 08:40 VBG pO2 78 mmHg (25-40) H 04/29/16 22:00 Sodium 134 mEq/L (136-145) L 05/02/16 04:15 BUN 35 mg/dL (8-26) H 05/02/16 04:15 Creatinine 2.20 mg/dL (0.72-1.25) H 05/02/16 04:15 Est GFR ( Amer) 35 (> 60) L 05/02/16 04:15 Est GFR (Non-Af Amer) 29 (> 60) L 05/02/16 04:15 Glucose 274 mg/dL (70-99) H 05/02/16 04:15 POC Glucose 394 (58-89) H 05/02/16 11:16 Calcium 7.8 mg/dL (8.6-10.8) L 05/02/16 04:15 Magnesium 1.5 mg/dL (1.6-2.6) L 04/29/16 04:06 B-Natriuretic Peptide 132 pg/mL (0-100) H 04/28/16 03:06 Albumin 3.1 g/dL (3.5-5.0) L 04/28/16 03:06 Globulin 3.7 g/dL (2.4-3.5) H 04/28/16 03:06 Albumin/Globulin Ratio 0.8 (1.1-2.2) L 04/28/16 03:06 Urine Clarity Cloudy (Clear) A 04/28/16 20:25 Ur Specific [place] 1.027 (1.010-1.025) H 04/28/16 20:25 Urine Protein 30 mg/dL (Neg-Trace) H 04/28/16 20:25 Urine Glucose (UA) 100 mg/dL (Normal) H 04/28/16 20:25 Ur Leukocyte Esterase Small (Negative) H 04/28/16 20:25 Urine Microscopic RBC 5-15 per hpf (0-3) H 04/28/16 20:25 Urine Microscopic WBC 15-30 per hpf (0-3) H 04/28/16 20:25 Ur Squamous Epith Cells Many per lpf (None-Few) H 04/28/16 20:25 Ur Culture Indicated? YES (NO) A 04/28/16 20:25 Vancomycin Trough 21.8 mcg/mL (10-20) H* 05/01/16 02:35 - VTE Documentation of Mechanical Device: Venous foot pump, device Consult Discharge Plan - Plan Referrals: Seth Lau MD [Partnered Physician] - 05/26/16 10:05 am Cristy Grady PAC [Physician Garage Manager] - 07/08/16 10:00 am Desi Valdez CNP [Primary Care Provider] - 07/08/16 10:30 am
[2016-05-02] MEDS ORDERED: *HR* Enoxaparin 30 MG/0.3 ML SYRINGE SQ SCH (14:00)
--- NOTE | 2016-05-02 15:08 | Internal Med Progress Note ---
Date of Encounter: 05/02/16 Time of Encounter: 15:04 - Assessment and plan (1) Sepsis Current Visit: Yes Status: Acute Assessment and plan: severe sepsis 2/2 HAP, clinically better. leucocytosis has improved with IV atibiotics. repeat lactate was normal blood cx shows no growth. continue IV antibiotics,IV fluids and will continue steroids. Qualifiers: Sepsis type: sepsis due to unspecified organism Qualified Code(s): A41.9 - Sepsis, unspecified organism (2) Hypoxia Current Visit: Yes Status: Acute Assessment and plan: s/p revision of right total shoulder arthroplasty. medicine consulted for hypoxia, CTA done, did not show any PE. shows no PE but showed b/l atelectasis vs pneumonia. he denies chest pain or sob, low prob for PE..lung exam with no wheeezing. started on IV antibiotics for HAP. blood cx x2, urine for strep and legionella antigen is negative incentive spirometry encouraged DVT prophylaxis. (3) Shoulder pain, right Current Visit: Yes Status: Acute Assessment and plan: management as per ortho Qualifiers: Chronicity: chronic Qualified Code(s): M25.511 - Pain in right shoulder; G89.29 - Other chronic pain (4) Diabetes Current Visit: No Status: Chronic Qualifiers: Diabetes mellitus type: type 2 Diabetes mellitus complication status: with unspecified complications Diabetes mellitus senior care insulin use: unspecified intermediate school teacher insulin use status Qualified Code(s): E11.8 - Type 2 diabetes mellitus with unspecified complications (5) Sleep apnea Current Visit: No Status: Chronic Assessment and plan: emphasized the use of CPAP at home , does not seem to be interested. Qualifiers: Sleep apnea type: unspecified type Qualified Code(s): G47.30 - Sleep apnea , unspecified (6) Hospital acquired PNA Current Visit: Yes Status: Acute Assessment and plan: as in hypoxia. was intubated for the orthopedic surgery. may have acquired from that, no fever, leucocytes has improved. have started IV antibiotics vanco, zosyn and levoflox. will change IV vanco to linezulid given worsening PRAVEENA. (7) PRAVEENA (acute kidney injury) Current Visit: Yes Status: Acute Assessment and plan: most likely 2/2 sepsis. recent IV contrast and vanco use. apprecaite renal recommendation, ab changed to linezolid. renal US do not show any obstruction or hydronephrosis. continue IVF. continue to monitor chem. - Time Spent With Patient 25 - 35 minutes - Subjective Interval history: Seen at the bedside appears in no acute distress, appears much better than yest. Sitting on the chair, was able to answer questions appropriately. he denies chest pain but says he has cough though he is not bringing out too much on nasal cannula at 3-4 l and sating 91-92% - Constitutional Vitals: Temp Pulse Resp BP Pulse Ox 97.7 F 67 18 129/71 99 05/02/16 10:31 05/02/16 10:31 05/02/16 10:31 05/02/16 10:31 05/02/16 10:31 General appearance: Present: A&O X 3, no acute distress Exam: neck- supple chest- b/l decreased breath sounds at the bases, no wheezing or creptns cvs- s1 and s2, no mr//g abd- soft ,non tender, bs are present ext- no edema, right arm on arm splint neuro- no focal defecits, alert and awake and answers appropriately. Internal Medicine: Result - Labs CBC & Chem 7: 05/02/16 04:15 05/02/16 04:15 Labs: Short CBC 05/02/16 Range/Units 04:15 WBC 14.8 H (4.3-11.1) K/mcL Hgb 9.5 L (12.9-16.9) g/dL Hct 29.4 L (37.5-50.1) % Plt Count 265 (140-400) K/mcL Neutrophils # 13.2 H (1.6-8.9) K/mcL BMP 05/02/16 04:15 Sodium 134 L Potassium 4.0 Chloride 103 Carbon Dioxide 20 BUN 35 H Creatinine 2.20 H Glucose 274 H Calcium 7.8 L - ABG Interpretation ABG results: ABG ABG pH 7.46 pH Units (7.32-7.45) H 05/01/16 08:40 ABG pCO2 30 mmHg (35-45) L 05/01/16 08:40 ABG pO2 72 mmHg (85-104) L 05/01/16 08:40 ABG O2 Saturation 95 % (95-98) 05/01/16 08:40 - Impressions Impressions Retroperitoneum Ultrasound 05/01/16 19:00 IMPRESSION: 1. No evidence of renal obstruction or or abnormal parenchymal echogenicity. 3 right renal cysts as outlined above. 2. Ureteral jets are not documented. No postvoid imaging of the bladder was obtained. D/ / Clay Tolliver MD / Clay Tolliver MD Interpreting Provider: Clay Tolliver MD Shoulder X-Ray 05/01/16 21:07 IMPRESSION: Stable postoperative changes of recent right shoulder arthroplasty. No hardware complication or fracture. D/ / Mikael Golden MD / Mikael Golden MD Interpreting Provider: Mikael Golden MD - VTE Documentation of Mechanical Device: Venous foot pump, device Consult Discharge Plan - Plan Referrals: Seth Lau MD [Partnered Physician] - 05/26/16 10:05 am Cristy Grady PAC [Physician Toolsmith] - 07/08/16 10:00 am Desi Valdez CNP [Primary Care Provider] - 07/08/16 10:30 am
[2016-05-02] MEDS: Latanoprost 2.5 ML BOTTLE BOTH EYES SCH (21:30)
[2016-05-03] MEDS: Ipratropium/Albuterol Neb 3 ML IH SCH ×4 (04:16→22:25)
[2016-05-03] MEDS: Piperacillin/Tazobactam 3.375 GM in D5% in Water (Mini-Bag+) 100 ML IVPB SCH ×2 (04:43→21:57)
[2016-05-03] MEDS: *HR* Enoxaparin 30 MG/0.3 ML SYRINGE SQ SCH (05:57)
[2016-05-03] MEDS: methylPREDNISolone 125 MG/2 ML VIAL IVP SCH ×3 (07:22→23:45)
[2016-05-03] MEDS: Cyanocobalamin (B-12) 1,000 MCG TABLET PO SCH (07:26)
[2016-05-03] MEDS: Sennosides 8.6 MG TABLET PO SCH (07:26)
[2016-05-03] MEDS: Metoprolol 100 MG TABLET PO SCH ×2 (07:26→20:37)
[2016-05-03] MEDS: Multivit/Ca/Min/Fe/FA 1 TAB TABLET PO SCH (07:26)
[2016-05-03] MEDS: Aspirin Enteric Coated 81 MG Tablet PO SCH (07:26)
[2016-05-03] MEDS: Thiamine (B-1) 100 MG TABLET PO SCH (07:26)
[2016-05-03] MEDS: amLODIPine 5 MG TABLET PO SCH (07:26)
[2016-05-03] MEDS: Insulin LISPRO 300 UNITS/3 ML VIAL SQ SCH ×7 (07:27→20:38)
[2016-05-03] MEDS: Chloraseptic Spray 177 ML BOTTLE MM PRN ×3 (07:27→20:44)
[2016-05-03] MEDS: Dorzolamide/Timolol OPTH 10 ML BOTTLE RIGHT EYE SCH ×2 (07:29→20:37)
[2016-05-03 08:51] LABS: Basophils # 0.1 K/mcL (0.0-0.2); Basophils % 0.4 %; Hematocrit 29.8 % (37.5-50.1); Hemoglobin 9.7 g/dL (12.9-16.9); Immature Granulocytes % 4.4 % (0-4); Lymphocytes % 5.4 %; Mean Corpuscular HGB Conc 32.6 g/dL (31.6-35.5); Mean Corpuscular Hemoglobin 27.7 pg (28.0-33.3); Mean Corpuscular Volume 85.1 fL (83.0-100.0); Mean Platelet Volume 9.4 fL (9.4-12.4); Monocytes # 0.7 K/mcL (0.0-1.3); Monocytes % 3.6 %; Neutrophils # 16.4 K/mcL (1.6-8.9); Nucleated Red Blood Cells 0.4 /100 WBC (0); Platelet Count 311 K/mcL (140-400); Segmented Neutrophils % 86.2 %
[2016-05-03 09:20] LABS: Calcium 7.9 mg/dL (8.6-10.8); Potassium 4.1 mEq/L (3.5-4.5)
--- NOTE | 2016-05-03 09:40 | Nephrology Progress Note ---
Date of Encounter: 05/03/16 Time of Encounter: 09:38 - Assessment and Plan (1) PRAVEENA (acute kidney injury) Current Visit: Yes Status: Acute good urine output. Creatinine improving. Anticipate his renal function will recover to baseline. Avoid nephrotoxins. (2) Hospital acquired PNA Current Visit: Yes Status: Acute Continue antibiotics. Per primary team. (3) Diabetes Current Visit: No Status: Chronic Per primary team. Qualifiers: Diabetes mellitus type: type 2 Diabetes mellitus complication status: with unspecified complications Diabetes mellitus custodial insulin use: unspecified custodial insulin use status Qualified Code(s): E11.8 - Type 2 diabetes mellitus with unspecified complications (4) Obesities, morbid Current Visit: No Status: Chronic outpatient management. Qualifiers: Obesity type: unspecified obesity type Qualified Code(s): E66.01 - Morbid ( severe) obesity due to excess calories (5) Acidosis, metabolic Current Visit: Yes Status: Acute Likely related to renal dysfunction. Monitor for improvement. If persists will likely provide supplemental bicarbonate. Subjective Principal diagnosis: PRAVEENA Interval history: Patient seen. ROS stable. He has no new complaint. Objective - Vital Signs Vital signs: Vital Signs Temp Pulse Resp BP Pulse Ox 05/03/16 09:06 18 98 05/03/16 07:50 93 L 05/03/16 06:45 97.4 F L 82 20 125/71 97 05/03/16 00:00 97.5 F L 88 20 135/75 96 05/02/16 22:45 18 96 05/02/16 20:00 98.1 F 86 21 139/76 95 05/02/16 16:30 20 92 L 05/02/16 15:01 97.6 F 78 18 91/42 93 L 05/02/16 10:31 97.7 F 67 18 129/71 99 05/02/16 10:29 21 90 L Intake and Output 05/02/16 05/03/16 05/03/16 23:59 07:59 15:59 Intake Total 2740 / 2740 100 / 100 600 / 600 Output Total 1175 / 1175 Balance 1565 / 1565 100 / 100 600 / 600 Intake: IV Fluids 1400 / 1400 100 / 100 0.9 % Sodium Chloride 1, 1000 / 1000 000 ML @ 100 mls/hr IVC . Q10H [facility] Rx#:[id number] Zyvox 600mg/300mL 600 mg 300 / 300 In 300 ml @ 150 mls/hr IVPB Q12HR [facility] Rx#: [id number] Zosyn 3.375 GM In 100 / 100 100 / 100 Dextrose 5% (Minibag+) 100 ML 100 ML @ 25 mls/hr IVPB Q8H [facility] Rx#: [id number] Oral 1340 / 1340 600 / 600 Output: Urine 1175 / 1175 Other: Meal Dinner Breakfast Percent of Meal Consumed 100% 100% Stool Size Small Stool Consistency formed Stool Color Brown # Voids 1 # Bowel Movements 1 Blood Glucose* 397 236 - General Appearance General appearance: Present: well-developed, well-nourished, obese EENT: Present: ATNC Neck: Present: supple Respiratory: Present: scoliosis Cardiology: Present: edema, regular rate, regular rhythm Gastrointestinal: Present: normoactive bowel sounds, no tenderness Integumentary: Present: warm and dry Neurologic: Present: alert and oriented x3 Musculoskeletal: Present: no cyanosis Psychiatric: Present: mood/affect appropriate - Lab 05/03/16 08:32 05/03/16 08:32 Most recent lab results ABG pH 7.46 pH Units (7.32-7.45) H 05/01/16 08:40 ABG pCO2 30 mmHg (35-45) L 05/01/16 08:40 ABG pO2 72 mmHg (85-104) L 05/01/16 08:40 ABG HCO3 21.3 mEQ/L (21-27) 05/01/16 08:40 ABG O2 Saturation 95 % (95-98) 05/01/16 08:40 Calcium 7.9 mg/dL (8.6-10.8) L 05/03/16 08:32 Magnesium 1.5 mg/dL (1.6-2.6) L 04/29/16 04:06 Urine Sodium 28.0 mEq/L 05/01/16 14:10 - VTE Documentation of Mechanical Device: Venous foot pump, device Consult Discharge Plan - Plan Referrals: Seth Lau MD [Partnered Physician] - 05/26/16 10:05 am Cristy Grady PAC [Physician Yarn Twister] - 07/08/16 10:00 am Desi Valdez, STATION USHER [Primary Care Provider] - 07/08/16 10:30 am
[2016-05-03] MEDS: Insulin DETEMIR 100 UNIT/ML X5UNITS SQ SCH ×2 (09:52→20:38)
--- NOTE | 2016-05-03 10:12 | Internal Med Progress Note ---
Date of Encounter: 05/03/16 Time of Encounter: 10:10 - Assessment and plan (1) Sepsis Current Visit: Yes Status: Acute Assessment and plan: clinically better. leucocytosis most likely du eto addition of steroids. less o2 requirement, sats has improved, patient feels better. blood cx shows no growth. continue IV antibiotics,IV fluids and will continue steroids. Qualifiers: Sepsis type: sepsis due to unspecified organism Qualified Code(s): A41.9 - Sepsis, unspecified organism (2) Hypoxia Current Visit: Yes Status: Acute Assessment and plan: s/p revision of right total shoulder arthroplasty. medicine consulted for hypoxia, CTA done, did not show any PE. shows no PE but showed b/l atelectasis vs pneumonia. started on IV antibiotics for HAP. hypoxia has improved, currently on 2 l of NC, sats 95% blood cx x2 negative, urine for strep and legionella antigen is negative incentive spirometry encouraged DVT prophylaxis. (3) Shoulder pain, right Current Visit: Yes Status: Acute Assessment and plan: management as per ortho Qualifiers: Chronicity: chronic Qualified Code(s): M25.511 - Pain in right shoulder; G89.29 - Other chronic pain (4) Diabetes Current Visit: No Status: Chronic Assessment and plan: fsg have improved today after increasing the levemir dose, may be 2/2 steroids. Qualifiers: Diabetes mellitus type: type 2 Diabetes mellitus complication status: with unspecified complications Diabetes mellitus fci insulin use: unspecified fci insulin use status Qualified Code(s): E11.8 - Type 2 diabetes mellitus with unspecified complications (5) Sleep apnea Current Visit: No Status: Chronic Assessment and plan: emphasized the use of CPAP at home , does not seem to be interested. Qualifiers: Sleep apnea type: unspecified type Qualified Code(s): G47.30 - Sleep apnea , unspecified (6) Hospital acquired PNA Current Visit: Yes Status: Acute Assessment and plan: as in hypoxia. was intubated for the orthopedic surgery. may have acquired from that, no fever, leucocytes from steroids continue IV antibiotics (7) PRAVEENA (acute kidney injury) Current Visit: Yes Status: Acute Assessment and plan: most likely 2/2 sepsis. recent IV contrast and vanco use. apprecaite renal recommendation, ab changed to linezolid. renal US do not show any obstruction or hydronephrosis. continue IVF.creatinine has improved, good urine output. continue to monitor chem. - Time Spent With Patient 25 - 35 minutes - Subjective Interval history: Seen at the bedside appears in no acute distress, appears much better , had a large bowel movement. Sitting on the chair, was able to answer questions appropriately. he denies chest pain , has cough on nasal cannula at 3 l and sating 95% - Constitutional Vitals: Temp Pulse Resp BP Pulse Ox 97.4 F L 82 18 125/71 98 05/03/16 06:45 05/03/16 06:45 05/03/16 09:06 05/03/16 06:45 05/03/16 09:06 General appearance: Present: A&O X 3, no acute distress Exam: neck- supple chest- b/l decreased breath sounds at the bases, no wheezing or creptns cvs- s1 and s2, no mr//g abd- soft ,non tender, bs are present ext- no edema, right arm on arm splint neuro- no focal defecits, alert and awake and answers appropriately. Internal Medicine: Result - Labs CBC & Chem 7: 05/03/16 08:32 05/03/16 08:32 Labs: Short CBC 05/03/16 Range/Units 08:32 WBC 19.0 H (4.3-11.1) K/mcL Hgb 9.7 L (12.9-16.9) g/dL Hct 29.8 L (37.5-50.1) % Plt Count 311 (140-400) K/mcL Neutrophils # 16.4 H (1.6-8.9) K/mcL BMP 05/03/16 08:32 Sodium 138 Potassium 4.1 Chloride 106 Carbon Dioxide 18 L BUN 41 H Creatinine 2.02 H Glucose 231 H Calcium 7.9 L - ABG Interpretation ABG results: ABG ABG pH 7.46 pH Units (7.32-7.45) H 05/01/16 08:40 ABG pCO2 30 mmHg (35-45) L 05/01/16 08:40 ABG pO2 72 mmHg (85-104) L 05/01/16 08:40 ABG O2 Saturation 95 % (95-98) 05/01/16 08:40 - VTE Documentation of Mechanical Device: Venous foot pump, device Consult Discharge Plan - Plan Referrals: Seth Lau MD [Partnered Physician] - 05/26/16 10:05 am Cristy Grady, KRUPA [Physician Box Toe Flanger Stitchdowns] - 07/08/16 10:00 am Desi Valdez CNP [Primary Care Provider] - 07/08/16 10:30 am
[2016-05-03] MEDS ORDERED: 0.9 % Sodium Chloride 1,000 ML IVC SCH (10:20)
[2016-05-03] MEDS: Levofloxacin 750 MG/150 ML 750 MG/150 ML BAG IVPB SCH (15:24)
--- NOTE | 2016-05-03 15:50 | Orthopedics Progress Note ---
Date of Encounter: 05/03/16 Time of Encounter: 15:49 Subjective Principal diagnosis: PRAVEENA Interval history: Patient comfortable right shoulder:sings are clean dry intact Right hand is neurovascularly intact, with mild stiffness and minimal swelling POD # 6, stable Continue medical management for pneumonia Continue and exercises and mobilization of shoulder Possible d/c tomorrow Objective Vital signs: Vital Signs Temp Pulse Resp BP Pulse Ox 05/03/16 15:00 97.6 F 83 20 158/84 93 L 05/03/16 11:19 97.9 F 74 20 127/70 96 05/03/16 09:06 18 98 05/03/16 07:50 93 L 05/03/16 06:45 97.4 F L 82 20 125/71 97 05/03/16 00:00 97.5 F L 88 20 135/75 96 05/02/16 22:45 18 96 05/02/16 20:00 98.1 F 86 21 139/76 95 05/02/16 16:30 20 92 L Intake and Output 05/02/16 05/03/16 05/03/16 23:59 07:59 15:59 Intake Total 2740 / 2740 100 / 100 1300 / 1300 Output Total 1175 / 1175 Balance 1565 / 1565 100 / 100 1300 / 1300 Intake: IV Fluids 1400 / 1400 100 / 100 700 / 700 0.9 % Sodium Chloride 1, 1000 / 1000 300 / 300 000 ML @ 50 mls/hr IVC . Q20H [facility] Rx#:[id number] Zyvox 600mg/300mL 600 mg 300 / 300 300 / 300 In 300 ml @ 150 mls/hr IVPB Q12HR [facility] Rx#: [id number] Zosyn 3.375 GM In 100 / 100 100 / 100 100 / 100 Dextrose 5% (Minibag+) 100 ML 100 ML @ 25 mls/hr IVPB Q8H [facility] Rx#: [id number] Oral 1340 / 1340 600 / 600 Output: Urine 1175 / 1175 Other: Meal Dinner Breakfast Percent of Meal Consumed 100% 100% Stool Size Small Copious Stool Consistency formed soft formed Stool Characteristics Normal for Patient Stool Color Brown Brown # Voids 1 1 # Bowel Movements 1 1 Blood Glucose* 397 236 320 - Labs CBC & BMP: 05/03/16 08:32 05/03/16 08:32 Labs: Abnormal lab results WBC 19.0 K/mcL (4.3-11.1) H 05/03/16 08:32 RBC 3.50 M/mcL (4.19-5.50) L 05/03/16 08:32 Hgb 9.7 g/dL (12.9-16.9) L 05/03/16 08:32 Hct 29.8 % (37.5-50.1) L 05/03/16 08:32 MCH 27.7 pg (28.0-33.3) L 05/03/16 08:32 RDW 16.0 % (11.5-14.5) H 05/03/16 08:32 Immature Gran % 4.4 % (0-4) H 05/03/16 08:32 Neutrophils # 16.4 K/mcL (1.6-8.9) H 05/03/16 08:32 Nucleated RBCs/100 WBC 0.4 /100 WBC (0) H 05/03/16 08:32 Immature Plt Fraction 1.0 % (1.1-6.1) L 05/01/16 08:15 ABG pH 7.46 pH Units (7.32-7.45) H 05/01/16 08:40 ABG pCO2 30 mmHg (35-45) L 05/01/16 08:40 ABG pO2 72 mmHg (85-104) L 05/01/16 08:40 VBG pO2 78 mmHg (25-40) H 04/29/16 22:00 Carbon Dioxide 18 mEq/L (19-29) L 05/03/16 08:32 BUN 41 mg/dL (8-26) H 05/03/16 08:32 Creatinine 2.02 mg/dL (0.72-1.25) H 05/03/16 08:32 Est GFR ( Amer) 39 (> 60) L 05/03/16 08:32 Est GFR (Non-Af Amer) 32 (> 60) L 05/03/16 08:32 Glucose 231 mg/dL (70-99) H 05/03/16 08:32 POC Glucose 397 (58-89) H 05/02/16 20:18 Calculated Osmolality 303 (280-300) H 05/03/16 08:32 Calcium 7.9 mg/dL (8.6-10.8) L 05/03/16 08:32 Magnesium 1.5 mg/dL (1.6-2.6) L 04/29/16 04:06 B-Natriuretic Peptide 132 pg/mL (0-100) H 04/28/16 03:06 Albumin 3.1 g/dL (3.5-5.0) L 04/28/16 03:06 Globulin 3.7 g/dL (2.4-3.5) H 04/28/16 03:06 Albumin/Globulin Ratio 0.8 (1.1-2.2) L 04/28/16 03:06 Urine Clarity Cloudy (Clear) A 04/28/16 20:25 Ur Specific [place] 1.027 (1.010-1.025) H 04/28/16 20:25 Urine Protein 30 mg/dL (Neg-Trace) H 04/28/16 20:25 Urine Glucose (UA) 100 mg/dL (Normal) H 04/28/16 20:25 Ur Leukocyte Esterase Small (Negative) H 04/28/16 20:25 Urine Microscopic RBC 5-15 per hpf (0-3) H 04/28/16 20:25 Urine Microscopic WBC 15-30 per hpf (0-3) H 04/28/16 20:25 Ur Squamous Epith Cells Many per lpf (None-Few) H 04/28/16 20:25 Ur Culture Indicated? YES (NO) A 04/28/16 20:25 Vancomycin Trough 21.8 mcg/mL (10-20) H* 05/01/16 02:35 - VTE Documentation of Mechanical Device: Venous foot pump, device Consult Discharge Plan - Plan Referrals: Seth Lau MD [Partnered Physician] - 05/26/16 10:05 am Cristy Grady, PAC [Physician Loan Processing Supervisor] - 07/08/16 10:00 am Desi Valdez MANAGER BUSINESS BANKING [Primary Care Provider] - 07/08/16 10:30 am
[2016-05-03] MEDS: Latanoprost 2.5 ML BOTTLE BOTH EYES SCH (20:36)
[2016-05-03] MEDS: Temazepam 15 MG CAPSULE PO PRN (23:51)
[2016-05-04 04:55] LABS: Hematocrit 28.8 % (37.5-50.1); Hemoglobin 9.3 g/dL (12.9-16.9); Mean Corpuscular HGB Conc 32.3 g/dL (31.6-35.5); Mean Corpuscular Hemoglobin 27.5 pg (28.0-33.3); Mean Corpuscular Volume 85.2 fL (83.0-100.0); Mean Platelet Volume 9.1 fL (9.4-12.4); Nucleated Red Blood Cells 0.4 /100 WBC (0); Platelet Count 342 K/mcL (140-400); Red Blood Count 3.38 M/mcL (4.19-5.50); Red Cell Distribution Width 16.2 % (11.5-14.5)
[2016-05-04 05:08] LABS: Calcium 7.6 mg/dL (8.6-10.8); Potassium 4.3 mEq/L (3.5-4.5)
[2016-05-04] MEDS: Ipratropium/Albuterol Neb 3 ML IH SCH ×4 (05:20→21:53)
[2016-05-04 05:38] LABS: Lymphocytes # 1.4 K/mcL (0.6-4.6); Monocytes # 1.4 K/mcL (0.0-1.3); Neutrophils # 20.6 K/mcL (1.6-8.9); Platelet Estimate Normal (Normal)
[2016-05-04] MEDS: *HR* Enoxaparin 30 MG/0.3 ML SYRINGE SQ SCH (05:59)
[2016-05-04] MEDS: Piperacillin/Tazobactam 3.375 GM in D5% in Water (Mini-Bag+) 100 ML IVPB SCH ×3 (05:59→21:56)
--- NOTE | 2016-05-04 06:48 | Orthopedics Progress Note ---
Date of Encounter: 05/04/16 Time of Encounter: 06:46 - Assessment and Plan (1) Bone loss Current Visit: Yes Status: Acute (2) Shoulder pain, right Current Visit: No Status: Acute Qualifiers: Chronicity: chronic Qualified Code(s): M25.511 - Pain in right shoulder; G89.29 - Other chronic pain (3) COPD (chronic obstructive pulmonary disease) Current Visit: No Status: Chronic Qualifiers: COPD type: unspecified COPD Qualified Code(s): J44.9 - Chronic obstructive pulmonary disease, unspecified (4) Diabetes Current Visit: No Status: Chronic Qualifiers: Diabetes mellitus type: type 2 Diabetes mellitus complication status: with unspecified complications Diabetes mellitus intermediate teacher insulin use: unspecified snf insulin use status Qualified Code(s): E11.8 - Type 2 diabetes mellitus with unspecified complications (5) Hypercholesteremia Current Visit: No Status: Chronic (6) Obesities, morbid Current Visit: No Status: Chronic Qualifiers: Obesity type: unspecified obesity type Qualified Code(s): E66.01 - Morbid ( severe) obesity due to excess calories (7) Sleep apnea Current Visit: No Status: Chronic Qualifiers: Sleep apnea type: unspecified type Qualified Code(s): G47.30 - Sleep apnea , unspecified (8) PRAVEENA (acute kidney injury) Current Visit: Yes Status: Acute (9) Acute respiratory failure with hypoxia Current Visit: Yes Status: Acute (10) Hospital acquired PNA Current Visit: Yes Status: Acute (11) Hypomagnesemia Current Visit: Yes Status: Acute (12) Hypoxia Current Visit: Yes Status: Acute (13) Leucocytosis Current Visit: Yes Status: Acute Qualifiers: Leukocytosis type: unspecified Qualified Code(s): D72.829 - Elevated white blood cell count, unspecified Subjective Principal diagnosis: PRAVEENA Interval history: Patient was seen this morning with fall into bed yesterday we will check x- rays. Bilateral lower extremity swelling will check Doppler studies. Calves are nontender Afebrile vital signs stable Operative extremity: Neurovascularly intact Dressing clean dry and intact Calves nontender Assessment and plan: Continue with postoperative care continue to monitor his breathing on IV antibiotics continue plan as per hospitalist Objective Vital signs: Vital Signs Temp Pulse Resp BP Pulse Ox 05/04/16 03:50 97.9 F 75 22 167/79 92 L 05/03/16 23:39 97.7 F 78 20 162/96 94 L 05/03/16 22:55 20 94 L 05/03/16 20:53 98.9 F 91 20 176/77 96 05/03/16 18:51 18 92 L 05/03/16 15:00 97.6 F 83 20 158/84 93 L 05/03/16 11:19 97.9 F 74 20 127/70 96 05/03/16 09:06 18 98 05/03/16 07:50 93 L Intake and Output 05/03/16 05/03/16 05/04/16 15:59 23:59 07:59 Intake Total 1300 / 1300 500 / 500 650 / 650 Output Total 650 / 650 Balance 1300 / 1300 -150 / -150 650 / 650 Intake: IV Fluids 700 / 700 100 / 100 0.9 % Sodium Chloride 1, 300 / 300 000 ML @ 50 mls/hr IVC . Q20H [facility] Rx#:[id number] Zyvox 600mg/300mL 600 mg 300 / 300 In 300 ml @ 150 mls/hr IVPB Q12HR [facility] Rx#: [id number] Zosyn 3.375 GM In 100 / 100 100 / 100 Dextrose 5% (Minibag+) 100 ML 100 ML @ 25 mls/hr IVPB Q8H [facility] Rx#: [id number] Oral 600 / 600 500 / 500 550 / 550 Output: Urine 650 / 650 Other: Meal Breakfast Percent of Meal Consumed 100% Stool Size Copious Stool Consistency soft formed Stool Characteristics Normal for Patient Stool Color Brown # Voids 1 # Bowel Movements 1 Blood Glucose* 320 279 - Labs CBC & BMP: 05/04/16 04:38 05/04/16 04:38 Labs: Abnormal lab results WBC 23.9 K/mcL (4.3-11.1) H 05/04/16 04:38 RBC 3.38 M/mcL (4.19-5.50) L 05/04/16 04:38 Hgb 9.3 g/dL (12.9-16.9) L 05/04/16 04:38 Hct 28.8 % (37.5-50.1) L 05/04/16 04:38 MCH 27.5 pg (28.0-33.3) L 05/04/16 04:38 RDW 16.2 % (11.5-14.5) H 05/04/16 04:38 MPV 9.1 fL (9.4-12.4) L 05/04/16 04:38 Immature Gran % 4.4 % (0-4) H 05/03/16 08:32 Myelocytes % 2.0 % (0) H 05/04/16 04:38 Neutrophils # 20.6 K/mcL (1.6-8.9) H 05/04/16 04:38 Monocytes # 1.4 K/mcL (0.0-1.3) H 05/04/16 04:38 Nucleated RBCs/100 WBC 0.4 /100 WBC (0) H 05/04/16 04:38 Immature Plt Fraction 1.0 % (1.1-6.1) L 05/01/16 08:15 ABG pH 7.46 pH Units (7.32-7.45) H 05/01/16 08:40 ABG pCO2 30 mmHg (35-45) L 05/01/16 08:40 ABG pO2 72 mmHg (85-104) L 05/01/16 08:40 VBG pO2 78 mmHg (25-40) H 04/29/16 22:00 BUN 43 mg/dL (8-26) H 05/04/16 04:38 Creatinine 1.89 mg/dL (0.72-1.25) H 05/04/16 04:38 Est GFR ( Amer) 42 (> 60) L 05/04/16 04:38 Est GFR (Non-Af Amer) 35 (> 60) L 05/04/16 04:38 Glucose 155 mg/dL (70-99) H 05/04/16 04:38 POC Glucose 279 (58-89) H 05/03/16 20:10 Calcium 7.6 mg/dL (8.6-10.8) L 05/04/16 04:38 Magnesium 1.5 mg/dL (1.6-2.6) L 04/29/16 04:06 B-Natriuretic Peptide 132 pg/mL (0-100) H 04/28/16 03:06 Albumin 3.1 g/dL (3.5-5.0) L 04/28/16 03:06 Globulin 3.7 g/dL (2.4-3.5) H 04/28/16 03:06 Albumin/Globulin Ratio 0.8 (1.1-2.2) L 04/28/16 03:06 Urine Clarity Cloudy (Clear) A 04/28/16 20:25 Ur Specific [place] 1.027 (1.010-1.025) H 04/28/16 20:25 Urine Protein 30 mg/dL (Neg-Trace) H 04/28/16 20:25 Urine Glucose (UA) 100 mg/dL (Normal) H 04/28/16 20:25 Ur Leukocyte Esterase Small (Negative) H 04/28/16 20:25 Urine Microscopic RBC 5-15 per hpf (0-3) H 04/28/16 20:25 Urine Microscopic WBC 15-30 per hpf (0-3) H 04/28/16 20:25 Ur Squamous Epith Cells Many per lpf (None-Few) H 04/28/16 20:25 Ur Culture Indicated? YES (NO) A 04/28/16 20:25 Vancomycin Trough 21.8 mcg/mL (10-20) H* 05/01/16 02:35 - VTE Documentation of Mechanical Device: Venous foot pump, device Consult Discharge Plan - Plan Referrals: Seth Lau MD [Partnered Physician] - 05/26/16 10:05 am Cristy Grady PAC [Physician Audiovisual Tech] - 07/08/16 10:00 am Desi Valdez CNP [Primary Care Provider] - 07/08/16 10:30 am
[2016-05-04] MEDS: methylPREDNISolone 125 MG/2 ML VIAL IVP SCH ×2 (09:43→21:57)
[2016-05-04] MEDS: Insulin DETEMIR 100 UNIT/ML X5UNITS SQ SCH ×2 (09:47→21:57)
[2016-05-04] MEDS: Insulin LISPRO 300 UNITS/3 ML VIAL SQ SCH ×7 (09:47→21:58)
[2016-05-04] MEDS: Chloraseptic Spray 177 ML BOTTLE MM PRN (09:50)
[2016-05-04] MEDS: Dorzolamide/Timolol OPTH 10 ML BOTTLE RIGHT EYE SCH ×2 (09:51→22:00)
[2016-05-04] MEDS: Cyanocobalamin (B-12) 1,000 MCG TABLET PO SCH (09:53)
[2016-05-04] MEDS: Sennosides 8.6 MG TABLET PO SCH (09:53)
[2016-05-04] MEDS: Aspirin Enteric Coated 81 MG Tablet PO SCH (09:53)
[2016-05-04] MEDS: Thiamine (B-1) 100 MG TABLET PO SCH (09:53)
[2016-05-04] MEDS: Multivit/Ca/Min/Fe/FA 1 TAB TABLET PO SCH (09:54)
[2016-05-04] MEDS: Metoprolol 100 MG TABLET PO SCH ×2 (09:54→21:58)
[2016-05-04] MEDS: amLODIPine 5 MG TABLET PO SCH (09:54)
--- NOTE | 2016-05-04 14:14 | Nephrology Progress Note ---
Date of Encounter: 05/04/16 Time of Encounter: 11:00 - Assessment and Plan (1) PRAVEENA (acute kidney injury) Current Visit: Yes Status: Acute Nonoliguric PRAVEENA without history of CKD. PRAVEENA secondary to contrast dye administration in addition to vancomycin administration. 3/6 SCr 1.89, improving towards baseline. Na 137, K4.3 3/5 UOP 650, intake 1900, POSITIVE balance of 1250 3/6 UOP 500 so far Retroperitoneal US shows no signs of hydronephrosis. Plan: -Continue IVF, SCr continues to improve towards baseline, which is around 0.8 -Continue to avoid nephrotoxic agents, dose renaly (2) Sepsis Current Visit: Yes Status: Acute Qualifiers: Sepsis type: sepsis due to unspecified organism Qualified Code(s): A41.9 - Sepsis, unspecified organism (3) Hospital acquired PNA Current Visit: Yes Status: Acute (4) Diabetes Current Visit: No Status: Chronic Qualifiers: Diabetes mellitus type: type 2 Diabetes mellitus complication status: with unspecified complications Diabetes mellitus service coordinator insulin use: unspecified snf insulin use status Qualified Code(s): E11.8 - Type 2 diabetes mellitus with unspecified complications Subjective Principal diagnosis: PRAVEENA Interval history: Patient seen and examined. He states that he has had some issues with shortness of breath. He is states that currently he has no cp, sob, fevers, chills, abdominal pain, dysuria. Objective - Vital Signs Vital signs: Vital Signs Temp Pulse Resp BP Pulse Ox 05/04/16 11:59 144/78 05/04/16 11:43 97.8 F 78 20 173/103 94 L 05/04/16 11:15 26 93 L 05/04/16 07:50 93 L 05/04/16 07:24 97.5 F L 78 25 112/58 95 05/04/16 03:50 97.9 F 75 22 167/79 92 L 05/03/16 23:39 97.7 F 78 20 162/96 94 L 05/03/16 22:55 20 94 L 05/03/16 20:53 98.9 F 91 20 176/77 96 05/03/16 18:51 18 92 L 05/03/16 15:00 97.6 F 83 20 158/84 93 L Intake and Output 05/03/16 05/04/16 05/04/16 23:59 07:59 15:59 Intake Total 500 / 500 650 / 650 820 / 820 Output Total 650 / 650 500 / 500 Balance -150 / -150 150 / 150 820 / 820 Intake: IV Fluids 100 / 100 100 / 100 Zosyn 3.375 GM In 100 / 100 100 / 100 Dextrose 5% (Minibag+) 100 ML 100 ML @ 25 mls/hr IVPB Q8H [facility] Rx#: [id number] Oral 500 / 500 550 / 550 720 / 720 Output: Urine 650 / 650 500 / 500 Other: Meal Dinner Percent of Meal Consumed 100% Stool Size Copious Stool Consistency loose Stool Color Brown Blood Glucose* 279 159 317 - General Appearance General appearance: Present: well-developed, well-nourished, appears started age EENT: Present: ATNC, PERRL, mucous membranes moist Neck: Present: no JVD, supple Respiratory: Present: clear Cardiology: Present: no murmurs, no rub, no gallops, edema, regular rate, regular rhythm Gastrointestinal: Present: normoactive bowel sounds, no tenderness, no guarding Integumentary: Present: no rash, warm and dry Neurologic: Present: no focal deficit, alert and oriented x3 Musculoskeletal: Present: no erythema, no cyanosis, no clubbing Additional Comments: right arm in brace Psychiatric: Present: mood/affect appropriate, cooperative - Lab 05/04/16 04:38 05/04/16 04:38 Most recent lab results ABG pH 7.46 pH Units (7.32-7.45) H 05/01/16 08:40 ABG pCO2 30 mmHg (35-45) L 05/01/16 08:40 ABG pO2 72 mmHg (85-104) L 05/01/16 08:40 ABG HCO3 21.3 mEQ/L (21-27) 05/01/16 08:40 ABG O2 Saturation 95 % (95-98) 05/01/16 08:40 Calcium 7.6 mg/dL (8.6-10.8) L 05/04/16 04:38 Magnesium 1.5 mg/dL (1.6-2.6) L 04/29/16 04:06 Urine Sodium 28.0 mEq/L 05/01/16 14:10 - Imaging Kidney/bladder ultrasound: report reviewed Additional Comments: Retroperitoneum Ultrasound 05/01/16 19:00 IMPRESSION: 1. No evidence of renal obstruction or or abnormal parenchymal echogenicity. 3 right renal cysts as outlined above. 2. Ureteral jets are not documented. No postvoid imaging of the bladder was obtained. D/ / Clay Tolliver MD / Clay Tolliver MD Interpreting Provider: Clay Tolliver MD - VTE Documentation of Mechanical Device: Venous foot pump, device Consult Discharge Plan - Plan Referrals: Seth Lau MD [Partnered Physician] - 05/26/16 10:05 am Cristy Grady PAC [Physician Computer Hardware Technician] - 07/08/16 10:00 am Desi Valdez CNP [Primary Care Provider] - 07/08/16 10:30 am
--- NOTE | 2016-05-04 17:22 | Internal Med Progress Note ---
Date of Encounter: 05/04/16 Time of Encounter: 17:20 - Assessment and plan (1) Sepsis Current Visit: Yes Status: Acute Assessment and plan: clinically better. leucocytosis most likely du eto addition of steroids. less o2 requirement, sats has improved, patient feels better. blood cx shows no growth. continue IV antibiotics, will start tapering steroids today. Qualifiers: Sepsis type: sepsis due to unspecified organism Qualified Code(s): A41.9 - Sepsis, unspecified organism (2) Hypoxia Current Visit: Yes Status: Acute Assessment and plan: s/p revision of right total shoulder arthroplasty. medicine consulted for hypoxia, CTA done, did not show any PE. shows no PE but showed b/l atelectasis vs pneumonia. started on IV antibiotics for HAP?VAP hypoxia has improved, currently on 2 l of NC, sats 94% blood cx x2 negative, urine for strep and legionella antigen is negative incentive spirometry encouraged DVT prophylaxis. (3) Shoulder pain, right Current Visit: Yes Status: Acute Assessment and plan: management as per ortho Qualifiers: Chronicity: chronic Qualified Code(s): M25.511 - Pain in right shoulder; G89.29 - Other chronic pain (4) Diabetes Current Visit: No Status: Chronic Assessment and plan: f increasing the levemir dose, may be 2/2 steroids. have also increased the insilin dose TIDWM and sliding dose Qualifiers: Diabetes mellitus type: type 2 Diabetes mellitus complication status: with unspecified complications Diabetes mellitus penitentiary insulin use: unspecified longitudinal float operator insulin use status Qualified Code(s): E11.8 - Type 2 diabetes mellitus with unspecified complications (5) Sleep apnea Current Visit: No Status: Chronic Assessment and plan: emphasized the use of CPAP at home , does not seem to be interested. conitnue CPAP at night. Qualifiers: Sleep apnea type: unspecified type Qualified Code(s): G47.30 - Sleep apnea , unspecified (6) Hospital acquired PNA Current Visit: Yes Status: Acute Assessment and plan: as in hypoxia. was intubated for the orthopedic surgery. may have acquired from that, no fever, leucocytes from steroids continue IV antibiotics, will start tapering steroids today. repeat CXR shows multifocal pneumonia and mild pulmonary congestion. (7) PRAVEENA (acute kidney injury) Current Visit: Yes Status: Acute Assessment and plan: most likely 2/2 sepsis. recent IV contrast and vanco use. apprecaite renal recommendation, ab changed to linezolid. renal US do not show any obstruction or hydronephrosis. creatinine has improved, good urine output. continue to monitor chem. IV fluids stopped today as he has signiicant lower leg edema and scrotal edema. will monitor and keep legs and his scrotum elevated, may need lasix if no improvement. - Time Spent With Patient 25 - 35 minutes - Subjective Interval history: Seen at the bedside appears in no acute distress, appears much better , requiring much less o2 today. noted that he has b/l lower leg swelling and scrotal swelling. Sitting on the chair, was able to answer questions appropriately. he denies chest pain , has cough on nasal cannula at 2 l and sating 93-94% - Constitutional Vitals: Temp Pulse Resp BP Pulse Ox 97.9 F 82 20 123/69 94 L 05/04/16 16:49 05/04/16 16:49 05/04/16 16:49 05/04/16 16:49 05/04/16 16:49 General appearance: Present: A&O X 3, no acute distress Exam: neck- supple chest- b/l decreased breath sounds at the bases, no wheezing or creptns cvs- s1 and s2, no mr//g abd- soft ,non tender, bs are present, scrotal edema ext- b/l lower leg edema neuro- no focal defecits, alert and awake and answers appropriately. Internal Medicine: Result - Labs CBC & Chem 7: 05/04/16 04:38 05/04/16 04:38 Labs: Short CBC 05/04/16 Range/Units 04:38 WBC 23.9 H (4.3-11.1) K/mcL Hgb 9.3 L (12.9-16.9) g/dL Hct 28.8 L (37.5-50.1) % Plt Count 342 (140-400) K/mcL Neutrophils # 20.6 H (1.6-8.9) K/mcL BMP 05/04/16 04:38 Sodium 137 Potassium 4.3 Chloride 108 Carbon Dioxide 20 BUN 43 H Creatinine 1.89 H Glucose 155 H Calcium 7.6 L - ABG Interpretation ABG results: ABG ABG pH 7.46 pH Units (7.32-7.45) H 05/01/16 08:40 ABG pCO2 30 mmHg (35-45) L 05/01/16 08:40 ABG pO2 72 mmHg (85-104) L 05/01/16 08:40 ABG O2 Saturation 95 % (95-98) 05/01/16 08:40 - Impressions Impressions Shoulder X-Ray 05/03/16 18:28 IMPRESSION: Stable reverse right shoulder replacement. No acute process seen. D/ / 05/03/2016 21:32:46 Betito Henning MD / radha Interpreting Provider: Betito Henning MD Chest X-Ray 05/04/16 09:25 IMPRESSION: Multifocal infiltrates identified in the lungs, greater in the left perihilar region and left lung base suspicious for pneumonia. No pneumothorax is identified. Mild vascular congestion and cardiomegaly. D/ / Clay Whittington MD / Clay Whittington MD Interpreting Provider: Clay Whittington MD - VTE Documentation of Mechanical Device: Venous foot pump, device Consult Discharge Plan - Plan Referrals: Seth Lau MD [Partnered Physician] - 05/26/16 10:05 am Cristy Grady, PAC [Physician Education Faculty Member] - 07/08/16 10:00 am Desi Valdez, PET ADOPTION COUNSELOR [Primary Care Provider] - 07/08/16 10:30 am
[2016-05-04] MEDS: Temazepam 15 MG CAPSULE PO PRN (21:58)
[2016-05-04] MEDS: Latanoprost 2.5 ML BOTTLE BOTH EYES SCH (21:59)
[2016-05-05] MEDS: Ipratropium/Albuterol Neb 3 ML IH SCH ×4 (04:42→23:21)
[2016-05-05 04:52] LABS: Hemoglobin 9.5 g/dL (12.9-16.9); Mean Corpuscular HGB Conc 31.7 g/dL (31.6-35.5); Mean Corpuscular Hemoglobin 26.6 pg (28.0-33.3); Mean Platelet Volume 8.5 fL (9.4-12.4); Nucleated Red Blood Cells 0.7 /100 WBC (0); Platelet Count 360 K/mcL (140-400); Red Blood Count 3.57 M/mcL (4.19-5.50); Red Cell Distribution Width 16.3 % (11.5-14.5)
[2016-05-05 05:07] LABS: Albumin 2.2 g/dL (3.5-5.0); Calcium 7.5 mg/dL (8.6-10.8); Potassium 4.3 mEq/L (3.5-4.5)
[2016-05-05 05:30] LABS: Monocytes # 2.9 K/mcL (0.0-1.3); Neutrophils # 16.6 K/mcL (1.6-8.9); Platelet Estimate Normal (Normal); Toxic Granulation Present (Not Present)
[2016-05-05] MEDS: Piperacillin/Tazobactam 3.375 GM in D5% in Water (Mini-Bag+) 100 ML IVPB SCH ×3 (05:56→21:18)
[2016-05-05] MEDS ORDERED: *HR* Enoxaparin 40 MG/0.4 ML SYRINGE SQ SCH (06:00)
--- NOTE | 2016-05-05 06:39 | Orthopedics Progress Note ---
Date of Encounter: 05/05/16 Time of Encounter: 06:38 - Assessment and Plan (1) Bone loss Current Visit: Yes Status: Acute (2) Shoulder pain, right Current Visit: No Status: Acute Qualifiers: Chronicity: chronic Qualified Code(s): M25.511 - Pain in right shoulder; G89.29 - Other chronic pain (3) COPD (chronic obstructive pulmonary disease) Current Visit: No Status: Chronic Qualifiers: COPD type: unspecified COPD Qualified Code(s): J44.9 - Chronic obstructive pulmonary disease, unspecified (4) Diabetes Current Visit: No Status: Chronic Qualifiers: Diabetes mellitus type: type 2 Diabetes mellitus complication status: with unspecified complications Diabetes mellitus termite inspector insulin use: unspecified fci insulin use status Qualified Code(s): E11.8 - Type 2 diabetes mellitus with unspecified complications (5) Hypercholesteremia Current Visit: No Status: Chronic (6) Obesities, morbid Current Visit: No Status: Chronic Qualifiers: Obesity type: unspecified obesity type Qualified Code(s): E66.01 - Morbid ( severe) obesity due to excess calories (7) Sleep apnea Current Visit: No Status: Chronic Qualifiers: Sleep apnea type: unspecified type Qualified Code(s): G47.30 - Sleep apnea , unspecified (8) PRAVEENA (acute kidney injury) Current Visit: Yes Status: Acute (9) Acute respiratory failure with hypoxia Current Visit: Yes Status: Acute (10) Hospital acquired PNA Current Visit: Yes Status: Acute (11) Hypomagnesemia Current Visit: Yes Status: Acute (12) Hypoxia Current Visit: Yes Status: Acute (13) Leucocytosis Current Visit: Yes Status: Acute Qualifiers: Leukocytosis type: unspecified Qualified Code(s): D72.829 - Elevated white blood cell count, unspecified Subjective Principal diagnosis: PRAVEENA Interval history: Patient was seen this morning awaiting plan as per hospitalist Afebrile vital signs stable Operative extremity: Neurovascularly intact Bloody drainage [place] added DC Lovenox Calves nontender Assessment and plan: Continue with postoperative care continue to monitor his breathing on IV antibiotics continue plan as per hospitalist Objective Vital signs: Vital Signs Temp Pulse Resp BP Pulse Ox 05/05/16 06:33 97.5 F L 77 16 160/95 92 L 05/05/16 03:46 97.9 F 71 22 178/80 94 L 05/05/16 00:42 22 95 05/04/16 23:52 95 05/04/16 23:37 98.1 F 87 26 168/91 92 L 05/04/16 21:53 22 96 05/04/16 20:24 97.9 F 76 24 158/85 94 L 05/04/16 16:49 97.9 F 82 20 123/69 94 L 05/04/16 15:37 16 95 05/04/16 11:59 144/78 05/04/16 11:43 97.8 F 78 20 173/103 94 L 05/04/16 11:15 26 93 L 05/04/16 07:50 93 L 05/04/16 07:24 97.5 F L 78 25 112/58 95 Intake and Output 05/04/16 05/04/16 05/05/16 15:59 23:59 07:59 Intake Total 1120 / 1120 340 / 340 400 / 400 Output Total 1025 / 1025 450 / 450 Balance 1120 / 1120 -685 / -685 -50 / -50 Intake: IV Fluids 400 / 400 100 / 100 400 / 400 Zyvox 600mg/300mL 600 mg 300 / 300 300 / 300 In 300 ml @ 150 mls/hr IVPB Q12H [facility] Rx#: [id number] Zosyn 3.375 GM In 100 / 100 100 / 100 100 / 100 Dextrose 5% (Minibag+) 100 ML 100 ML @ 25 mls/hr IVPB Q8H [facility] Rx#: [id number] Oral 720 / 720 240 / 240 Output: Urine 1025 / 1025 450 / 450 Other: Meal Dinner Dinner Percent of Meal Consumed 100% 100% Stool Size Copious Stool Consistency loose Stool Color Brown Blood Glucose* 317 164 - Labs CBC & BMP: 05/05/16 04:35 05/05/16 04:35 Labs: Abnormal lab results WBC 24.4 K/mcL (4.3-11.1) H 05/05/16 04:35 RBC 3.57 M/mcL (4.19-5.50) L 05/05/16 04:35 Hgb 9.5 g/dL (12.9-16.9) L 05/05/16 04:35 Hct 30.0 % (37.5-50.1) L 05/05/16 04:35 MCH 26.6 pg (28.0-33.3) L 05/05/16 04:35 RDW 16.3 % (11.5-14.5) H 05/05/16 04:35 MPV 8.5 fL (9.4-12.4) L 05/05/16 04:35 Immature Gran % 4.4 % (0-4) H 05/03/16 08:32 Band Neutrophils % 20.0 % (0-4) H 05/05/16 04:35 Metamyelocytes % 12.0 % (0) H 05/05/16 04:35 Myelocytes % 2.0 % (0) H 05/04/16 04:38 Neutrophils # 16.6 K/mcL (1.6-8.9) H 05/05/16 04:35 Monocytes # 2.9 K/mcL (0.0-1.3) H 05/05/16 04:35 Nucleated RBCs/100 WBC 0.7 /100 WBC (0) H 05/05/16 04:35 Toxic Granulation Present (Not Present) A 05/05/16 04:35 Immature Plt Fraction 1.0 % (1.1-6.1) L 05/01/16 08:15 ABG pH 7.46 pH Units (7.32-7.45) H 05/01/16 08:40 ABG pCO2 30 mmHg (35-45) L 05/01/16 08:40 ABG pO2 72 mmHg (85-104) L 05/01/16 08:40 VBG pO2 78 mmHg (25-40) H 04/29/16 22:00 BUN 41 mg/dL (8-26) H 05/05/16 04:35 Creatinine 1.81 mg/dL (0.72-1.25) H 05/05/16 04:35 Est GFR ( Amer) 44 (> 60) L 05/05/16 04:35 Est GFR (Non-Af Amer) 37 (> 60) L 05/05/16 04:35 Glucose 120 mg/dL (70-99) H 05/05/16 04:35 POC Glucose 164 (58-89) H 05/04/16 20:29 Calculated Osmolality 301 (280-300) H 05/05/16 04:35 Calcium 7.5 mg/dL (8.6-10.8) L 05/05/16 04:35 Magnesium 1.5 mg/dL (1.6-2.6) L 04/29/16 04:06 B-Natriuretic Peptide 559 pg/mL (0-100) H 05/05/16 04:35 Albumin 2.2 g/dL (3.5-5.0) L 05/05/16 04:35 Globulin 3.7 g/dL (2.4-3.5) H 04/28/16 03:06 Albumin/Globulin Ratio 0.8 (1.1-2.2) L 04/28/16 03:06 Urine Clarity Cloudy (Clear) A 04/28/16 20:25 Ur Specific [place] 1.027 (1.010-1.025) H 04/28/16 20:25 Urine Protein 30 mg/dL (Neg-Trace) H 04/28/16 20:25 Urine Glucose (UA) 100 mg/dL (Normal) H 04/28/16 20:25 Ur Leukocyte Esterase Small (Negative) H 04/28/16 20:25 Urine Microscopic RBC 5-15 per hpf (0-3) H 04/28/16 20:25 Urine Microscopic WBC 15-30 per hpf (0-3) H 04/28/16 20:25 Ur Squamous Epith Cells Many per lpf (None-Few) H 04/28/16 20:25 Ur Culture Indicated? YES (NO) A 04/28/16 20:25 Vancomycin Trough 21.8 mcg/mL (10-20) H* 05/01/16 02:35 - VTE Documentation of Mechanical Device: Venous foot pump, device Consult Discharge Plan - Plan Referrals: Seth Lau MD [Partnered Physician] - 05/26/16 10:05 am Cristy Grady PAC [Physician Bobbin Inspector] - 07/08/16 10:00 am Desi Valdez CNP [Primary Care Provider] - 07/08/16 10:30 am
[2016-05-05] MEDS: Insulin LISPRO 300 UNITS/3 ML VIAL SQ SCH ×7 (09:08→21:21)
[2016-05-05] MEDS: Thiamine (B-1) 100 MG TABLET PO SCH (09:11)
[2016-05-05] MEDS: Cyanocobalamin (B-12) 1,000 MCG TABLET PO SCH (09:11)
[2016-05-05] MEDS: amLODIPine 5 MG TABLET PO SCH (09:11)
[2016-05-05] MEDS: methylPREDNISolone 125 MG/2 ML VIAL IVP SCH (09:12)
[2016-05-05] MEDS: Metoprolol 100 MG TABLET PO SCH ×2 (09:12→21:20)
[2016-05-05] MEDS: Sennosides 8.6 MG TABLET PO SCH (09:12)
[2016-05-05] MEDS: Multivit/Ca/Min/Fe/FA 1 TAB TABLET PO SCH (09:12)
[2016-05-05] MEDS: Insulin DETEMIR 100 UNIT/ML X5UNITS SQ SCH ×2 (09:12→21:20)
[2016-05-05] MEDS: Aspirin Enteric Coated 81 MG Tablet PO SCH (09:12)
[2016-05-05] MEDS: Dorzolamide/Timolol OPTH 10 ML BOTTLE RIGHT EYE SCH ×2 (09:16→21:21)
--- NOTE | 2016-05-05 09:54 | Nephrology Progress Note ---
Date of Encounter: 05/05/16 Time of Encounter: 09:52 - Assessment and Plan (1) PRAVEENA (acute kidney injury) Current Visit: Yes Status: Acute Nonoliguric PRAVEENA without history of CKD. PRAVEENA secondary to contrast dye administration in addition to vancomycin administration. 37 SCr 1.81, GFR 37 improving towards baseline. Na 140, K4.3, Ca 7.5, BNP 559, Albumin 2.2 3/6 UOP 1525, intake 2110, POSITIVE balance of 585 3/7 UOP 450 so far Retroperitoneal US shows no signs of hydronephrosis. Plan: -Continue IVF, SCr continues to improve towards baseline, which is around 0.8 -Patient ok to discharge from a renal standpoint with a recheck of his BMP at the end of the week. -Continue to avoid nephrotoxic agents, dose renally (2) Hospital acquired PNA Current Visit: Yes Status: Acute (3) Diabetes Current Visit: No Status: Chronic Qualifiers: Diabetes mellitus type: type 2 Diabetes mellitus complication status: with unspecified complications Diabetes mellitus shelter insulin use: unspecified shelter insulin use status Qualified Code(s): E11.8 - Type 2 diabetes mellitus with unspecified complications (4) Sepsis Current Visit: Yes Status: Acute Qualifiers: Sepsis type: sepsis due to unspecified organism Qualified Code(s): A41.9 - Sepsis, unspecified organism Subjective Principal diagnosis: PRAVEENA Interval history: Patient seen and examined. States that he is feeling better today, but that he did not sleep well last night. He is states that currently he has no cp, sob, fevers, chills, abdominal pain, dysuria. Objective - Vital Signs Vital signs: Vital Signs Temp Pulse Resp BP Pulse Ox 05/05/16 06:33 97.5 F L 77 16 160/95 92 L 05/05/16 03:46 97.9 F 71 22 178/80 94 L 05/05/16 00:42 22 95 05/04/16 23:52 95 05/04/16 23:37 98.1 F 87 26 168/91 92 L 05/04/16 21:53 22 96 05/04/16 20:24 97.9 F 76 24 158/85 94 L 05/04/16 16:49 97.9 F 82 20 123/69 94 L 05/04/16 15:37 16 95 05/04/16 11:59 144/78 05/04/16 11:43 97.8 F 78 20 173/103 94 L 05/04/16 11:15 26 93 L Intake and Output 05/04/16 05/05/16 05/05/16 23:59 07:59 15:59 Intake Total 340 / 340 400 / 400 Output Total 1025 / 1025 450 / 450 Balance -685 / -685 -50 / -50 Intake: IV Fluids 100 / 100 400 / 400 Zyvox 600mg/300mL 600 mg 300 / 300 In 300 ml @ 150 mls/hr IVPB Q12H [facility] Rx#: [id number] Zosyn 3.375 GM In 100 / 100 100 / 100 Dextrose 5% (Minibag+) 100 ML 100 ML @ 25 mls/hr IVPB Q8H [facility] Rx#: [id number] Oral 240 / 240 Output: Urine 1025 / 1025 450 / 450 Other: Meal Dinner Percent of Meal Consumed 100% Stool Size Large Stool Consistency loose Stool Color Brown # Bowel Movements 1 Blood Glucose* 164 116 - General Appearance General appearance: Present: well-developed, well-nourished EENT: Present: ATNC, PERRL, mucous membranes moist Neck: Present: no JVD, supple Respiratory: Present: course breath sounds, rhonchi Cardiology: Present: no murmurs, no rub, no gallops, edema, regular rate, regular rhythm, normal S1, normal S2 Gastrointestinal: Present: normoactive bowel sounds, no tenderness, no guarding , obese Integumentary: Present: no rash, warm and dry Neurologic: Present: no focal deficit, alert and oriented x3 Musculoskeletal: Present: no erythema, no cyanosis, no clubbing Additional Comments: brace on right arm Psychiatric: Present: mood/affect appropriate, cooperative - Lab 05/05/16 04:35 05/05/16 04:35 Most recent lab results ABG pH 7.46 pH Units (7.32-7.45) H 05/01/16 08:40 ABG pCO2 30 mmHg (35-45) L 05/01/16 08:40 ABG pO2 72 mmHg (85-104) L 05/01/16 08:40 ABG HCO3 21.3 mEQ/L (21-27) 05/01/16 08:40 ABG O2 Saturation 95 % (95-98) 05/01/16 08:40 Calcium 7.5 mg/dL (8.6-10.8) L 05/05/16 04:35 Magnesium 1.5 mg/dL (1.6-2.6) L 04/29/16 04:06 Urine Sodium 28.0 mEq/L 05/01/16 14:10 - Allied health notes Allied health notes reviewed: nursing - VTE Documentation of Mechanical Device: Venous foot pump, device Consult Discharge Plan - Plan Referrals: Seth Lau MD [Partnered Physician] - 05/26/16 10:05 am Cristy Grady, PAC [Physician Compressor Engineer] - 07/08/16 10:00 am Desi Valdez CNP [Primary Care Provider] - 07/08/16 10:30 am
--- NOTE | 2016-05-05 12:11 | Internal Med Progress Note ---
Date of Encounter: 05/05/16 Time of Encounter: 12:11 - Assessment and plan (1) PRAVEENA (acute kidney injury) Current Visit: Yes Status: Acute Assessment and plan: most likely 2/2 sepsis, recent IV contrast and vanco use. Currently on Linezolid, Zosyn and Levaquin renal US do not show any obstruction or hydronephrosis. creatinine has improved, good urine output. continue to monitor chem. Patient still with bilateral lower extremity edema, chest is clear to exam. Nephrology has signed off, appreciate input (2) Acute respiratory failure with hypoxia Current Visit: Yes Status: Acute Assessment and plan: on supplemental O2 by NC, continue same Secondary to HCAP and COPDE s/p revision of right total shoulder arthroplasty. CTA done, did not show any PE b/l atelectasis vs pneumonia. Rpt CXR 05/04/16 noted blood cx x2 negative, urine for strep and legionella antigen is negative incentive spirometry encouraged DVT prophylaxis (3) Hospital acquired PNA Current Visit: Yes Status: Acute Assessment and plan: as in hypoxia. was intubated for the orthopedic surgery. may have acquired from that, no fever, leucocytosis from steroids continue IV antibiotics- Adye 2 of Linezolid, Day 3 of Zosyn, 2 doses of levaquin received repeat CXR 05/04/16 shows multifocal pneumonia and mild pulmonary congestion. ECHO noted today Patient is improving clinically Continue to monitor closely So far, all cultures are negative Rpt CBC a.m, anticipate d/c if downward trend (4) Hypoxia Current Visit: Yes Status: Acute Assessment and plan: As in Acute hypoxic respiratory failure (5) Leucocytosis Current Visit: Yes Status: Acute Assessment and plan: D/C IV steroids, change to po Rpt CBC a.m Respiratory status is improving, no other reason for white count for now except steroid use Qualifiers: Leukocytosis type: unspecified Qualified Code(s): D72.829 - Elevated white blood cell count, unspecified (6) Sepsis Current Visit: Yes Status: Acute Assessment and plan: As in HCAP Afebrile Qualifiers: Sepsis type: sepsis due to unspecified organism Qualified Code(s): A41.9 - Sepsis, unspecified organism (7) Shoulder pain, right Current Visit: Yes Status: Acute Assessment and plan: management as per ortho Qualifiers: Chronicity: chronic Qualified Code(s): M25.511 - Pain in right shoulder; G89.29 - Other chronic pain (8) Hypertension Current Visit: Yes Status: Chronic Assessment and plan: Controlled, continue current meds Qualifiers: Hypertension type: essential hypertension Qualified Code(s): I10 - Essential (primary) hypertension (9) Sleep apnea Current Visit: No Status: Chronic Assessment and plan: emphasized the use of CPAP at home , does not seem to be interested. conitnue CPAP at night. Qualifiers: Sleep apnea type: unspecified type Qualified Code(s): G47.30 - Sleep apnea , unspecified - Subjective Interval history: Initial encounter EMR reviewed 75-year-old male with past medical history of diabetes mellitus, CK D stage I, hypertension, hyperlipidemia, and arthritis. Patient was admitted to orthopedic service for management of right total shoulder arthroplasty revision. Hospitalist team was consulted for management of hypoxemia. Patient's hospital stay has been complicated by acute kidney injury secondary to dye administration, acute respiratory failure with hypoxia secondary to multifocal pneumonia, possible ventilator associated pneumonia, and persistent leukocytosis and hyperglycemia secondary to steroid use. Nephrology and orthopedic surgery management. Patient is seen at bedside with RN, upsetthat he still has persistent leukocytosis He denies new complaints, I did explain to him that his leukocytosis is possibly secondary to high-dose steroids Labs and imaging reviewed. Echocardiogram done today reveals a left ventricular ejection fraction 55%. Moderate to severe increased left ventricular thickness moderate left ventricular diastolic dysfunction and mild pulmonary hypertension. nephrology input appreciated. - Constitutional Vitals: Temp Pulse Resp BP Pulse Ox 97.9 F 68 15 145/89 93 L 05/05/16 11:04 05/05/16 11:04 05/05/16 11:04 05/05/16 11:04 05/05/16 11:04 General appearance: Present: A&O X 3, no acute distress, obese - Head Head exam: Present: atraumatic, normocephalic - Eye Eye exam: Present: PERRL, conjuntiva pink, sclera anicteric Pupils: Present: PERRL - ENT ENT exam: Present: mucous membranes moist - Neck Neck exam general surgery: Present: normal inspection - Respiratory Respiratory exam: Present: CTAB - Cardiovascular Cardiovascular exam: Present: RRR, +S1, +S2. Absent: JVD, +S3, systolic murmur - GI/Abdominal GI/Abdominal exam: Present: normal bowel sounds, soft, no peritoneal signs. Absent: tenderness - Extremities Exam Extremities exam: Present: pedal edema (1+ pitting pedal edema bilaterally, possibly dependent) Additional comments: R arm in sling - Neurological Exam Neurological exam: Present: alert, CN II-XII intact, oriented X3, no focal deficits. Absent: pronater drift, facial droop, speech deficit - Skin Skin exam: Present: dry, intact Internal Medicine: Result - Labs CBC & Chem 7: 05/05/16 04:35 05/05/16 04:35 Labs: Short CBC 05/05/16 Range/Units 04:35 WBC 24.4 H (4.3-11.1) K/mcL Hgb 9.5 L (12.9-16.9) g/dL Hct 30.0 L (37.5-50.1) % Plt Count 360 (140-400) K/mcL Neutrophils # 16.6 H (1.6-8.9) K/mcL BMP 05/05/16 04:35 Sodium 140 Potassium 4.3 Chloride 109 Carbon Dioxide 21 BUN 41 H Creatinine 1.81 H Glucose 120 H Calcium 7.5 L Liver Function 05/05/16 Range/Units 04:35 Albumin 2.2 L (3.5-5.0) g/dL - ABG Interpretation ABG results: ABG ABG pH 7.46 pH Units (7.32-7.45) H 05/01/16 08:40 ABG pCO2 30 mmHg (35-45) L 05/01/16 08:40 ABG pO2 72 mmHg (85-104) L 05/01/16 08:40 ABG O2 Saturation 95 % (95-98) 05/01/16 08:40 - Impressions Impressions Chest X-Ray 05/04/16 09:25 IMPRESSION: Multifocal infiltrates identified in the lungs, greater in the left perihilar region and left lung base suspicious for pneumonia. No pneumothorax is identified. Mild vascular congestion and cardiomegaly. D/ / Clay Whittington MD / Clay Whittington MD Interpreting Provider: Clay Whittington MD - VTE Documentation of Mechanical Device: Venous foot pump, device Consult Discharge Plan - Plan Referrals: Seth Lau MD [Partnered Physician] - 05/26/16 10:05 am Cristy Grady, PAC [Physician Rn Medication] - 07/08/16 10:00 am Desi Valdez CNP [Primary Care Provider] - 07/08/16 10:30 am
--- NOTE | 2016-05-05 13:32 | Venous Imaging Report ---
LE Venous Duplex Patient Name:Manoj Willis Order Number:[id number] Procedure Date:05/04/2016 Date:9Age:75 yrs Gender:Male Location:[facility] Room #: [id number] Anchorer:Mabel Santana RDCS Referring MD:Seth Lau MD financial institution president:Desi Valdez, [employer]IFE [employer] Reading MD:Rajat Zurita MD , FACS Primary Indications:R/O DVT Secondary Indications: Risk Factors Yes/No Recent Surgery Yes Anticoagulants Yes Impressions: Bilateral lower extremity: normal superficial and deep exam. Recommendations: Preliminary given to Pt RNAmmy. Findings Venous Duplex Results: Right: Venous imaging of the lower extremity reveals full patency and normal vessel compressibility of the right distal iliac, right common femoral, right superficial femoral, right popliteal, right posterior tibial, right peroneal, right gastrocnemius, right great saphenous and right lesser saphenous. Doppler signals in the evaluated veins were normal. Left: Venous imaging of the lower extremity reveals full patency and normal vessel compressibility of the left distal iliac, left common femoral, left superficial femoral, left popliteal, left posterior tibial, left peroneal, left great saphenous and left lesser saphenous. Doppler signals in the evaluated veins were normal. Prior Study: No prior study available for comparison. Lower Extremity Venous Duplex Side Vein Compress Spontaneous Flow Augment Diameter (cm) Depth (cm) Right Distal Iliac Normal Yes Phasic Yes Right Common Femoral Normal Yes Phasic Yes Right Superficial Femoral Normal Yes Phasic Yes Right Popliteal Normal Yes Phasic Yes Right Posterior Tibial Normal Yes Phasic Yes Right Peroneal Normal Yes Phasic Yes Right Gastrocnemius Normal Yes Phasic Yes Right Great Saphenous Normal Yes Phasic Yes Right Lesser Saphenous Normal Yes Phasic Yes Left Distal Iliac Normal Yes Phasic Yes Left Common Femoral Normal Yes Phasic Yes Left Superficial Femoral Normal Yes Phasic Yes Left Popliteal Normal Yes Phasic Yes Left Posterior Tibial Normal Yes Phasic Yes Left Peroneal Normal Yes Phasic Yes Left Great Saphenous Normal Yes Phasic Yes Left Lesser Saphenous Normal Yes Phasic Yes Updated by Rajat Zurita MD, FACS on 05/05/2016 1:27:09 PM Rajat Zurita MD electronically signed on 05/05/2016 1:27:33 PM with status of Final
--- NOTE | 2016-05-05 15:24 | ECHO - Doppler Report ---
Echocardiogram Name: Manoj Willis Date of Study: 05/05/2016 Date: 1940 Ht: 68.0 in Medical Record#: [id number] Age: 75 Wt: 240.0 lb Gender: Male BSA: 2.21 Order #: [id number] Location: [facility] Room #: [facility] Reading Physician: Nohemi Perkins DO [employer] Administrator: Yung Rodrigez RN Ordering Physician: Erlinda Bear MD Primary Physician: Desi Valdez CNP Indications: Congestive heart failure Impressions: LVEF 55%. Moderate to severe increased LV wall thickness. Moderate left ventricular diastolic dysfunction. Normal right ventricular size and function. Mild mitral regurgitation. Mild tricuspid regurgitation. Mild pulmonary hypertension. Left Ventricular Wall Motion: Rest Echo Findings All wall segments showed normal motion. Findings: Study Quality * Technically sub-optimal due to body habitus. ECG Findings * Normal sinus rhythm. Mitral Valve * Normal mitral valve structure. * No mitral stenosis. * Mild mitral regurgitation. Aortic Valve * No aortic regurgitation. * Aortic valve not well visualized. * No aortic stenosis. Left Ventricle * Moderate to severe increased LV wall thickness. * Moderate left ventricular diastolic dysfunction. * LVEF 55%. Tricuspid Valve * Tricuspid valve not well visualized. * Mild tricuspid regurgitation. * Estimated RA pressure is 3 mmHg. * Estimated RVSP is 42 mmHg. * Mild pulmonary hypertension. Pulmonic Valve * Pulmonic valve is not well visualized. * No pulmonic stenosis. * No pulmonic regurgitation. Pulmonary Artery * Pulmonary artery not well visualized. Right Ventricle * Normal RV size with normal function. Right Atrium * Normal right atrial size. Left Atrium * Moderate to severely dilated left atrium. Interatrial Septum * Interatrial septum not well evaluated. IVC * Normal IVC dimensions and inspiratory collapse. Pericardium * There is no pericardial effusion present. Aorta * Normally sized aortic root. History Hypertension Diabetes Hypercholesteremia Years 35 Packs 1 08/05/2014 a Previous Echo was performed. Measurements: BP: 145/ 89 2D Normal Values IVSd: 1.80 cm 0.6 - 1.0 cm LVIDd: 3.80 cm 3.7 - 5.6 cm LVPWd: 1.60 cm 0.6 - 1.1 cm LVIDs: 2.80 cm 1.5 - 3.6 cm LA: 4.10 cm 2.0 - 4.0cm %FS: 26.30 cm >25 % LVOT Diam: 2.00 cm LA volume: 115 Mitral Valve Peak E:1.35 m/sec Peak A:.90 m/sec E/A Ratio:1.5 Peak E' Lat Billy:9.46 cm/s Peak E' Med Billy:6.82 cm/s E/E' Lat Ratio:14.3 E/E' Med Ratio:19.8 Tricuspid Valve TV Regurg Peak Grad: 39.00mmHg TV Regurg Peak Billy: 3.10m/sec Updated by Nohemi Perkins on 05/05/2016 3:16:28 PM electronically signed on 05/05/2016 3:16:59 PM with status of Final Wall Motion Gregory: 1=Normal, 2=Hypokinesis, 3=Akinesis, 4=Dyskinesis, 5=Aneurysmal, 6=Hyperkinetic, X=Not Visualized (Blank)=Missing
[2016-05-05] MEDS: Levofloxacin 750 MG/150 ML 750 MG/150 ML BAG IVPB SCH (16:58)
[2016-05-05] MEDS: Temazepam 15 MG CAPSULE PO PRN (21:20)
[2016-05-05] MEDS: Latanoprost 2.5 ML BOTTLE BOTH EYES SCH (21:21)
[2016-05-06] MEDS: Ipratropium/Albuterol Neb 3 ML IH SCH ×2 (04:13→11:40)
[2016-05-06] MEDS: *HR* OxyCODONE Immed Rel 5 MG TABLET PO PRN (04:36)
[2016-05-06] MEDS: Piperacillin/Tazobactam 3.375 GM in D5% in Water (Mini-Bag+) 100 ML IVPB SCH (04:54)
[2016-05-06 05:00] LABS: Hematocrit 30.7 % (37.5-50.1); Hemoglobin 9.9 g/dL (12.9-16.9); Mean Corpuscular HGB Conc 32.2 g/dL (31.6-35.5); Mean Corpuscular Hemoglobin 27.3 pg (28.0-33.3); Mean Corpuscular Volume 84.8 fL (83.0-100.0); Mean Platelet Volume 8.6 fL (9.4-12.4); Nucleated Red Blood Cells 1.2 /100 WBC (0); Platelet Count 365 K/mcL (140-400); Red Blood Count 3.62 M/mcL (4.19-5.50); Red Cell Distribution Width 16.7 % (11.5-14.5)
[2016-05-06 05:22] LABS: Anisocytosis 1+ (Not Present); Lymphocytes # 3.6 K/mcL (0.6-4.6); Monocytes # 2.3 K/mcL (0.0-1.3); Neutrophils # 16.3 K/mcL (1.6-8.9); Platelet Estimate Normal (Normal)
[2016-05-06 05:23] LABS: Microcytosis Present (Not Present); Polychromasia 1+ (Not Present); Reactive Lymphocytes Present (Not Present)
--- NOTE | 2016-05-06 06:49 | Orthopedics Progress Note ---
Date of Encounter: 05/06/16 Time of Encounter: 06:49 - Assessment and Plan (1) Bone loss Current Visit: Yes Status: Acute (2) Shoulder pain, right Current Visit: No Status: Acute Qualifiers: Chronicity: chronic Qualified Code(s): M25.511 - Pain in right shoulder; G89.29 - Other chronic pain (3) COPD (chronic obstructive pulmonary disease) Current Visit: No Status: Chronic Qualifiers: COPD type: unspecified COPD Qualified Code(s): J44.9 - Chronic obstructive pulmonary disease, unspecified (4) Diabetes Current Visit: No Status: Chronic Qualifiers: Diabetes mellitus type: type 2 Diabetes mellitus complication status: with unspecified complications Diabetes mellitus buttermaker insulin use: unspecified senior living insulin use status Qualified Code(s): E11.8 - Type 2 diabetes mellitus with unspecified complications (5) Hypercholesteremia Current Visit: No Status: Chronic (6) Obesities, morbid Current Visit: No Status: Chronic Qualifiers: Obesity type: unspecified obesity type Qualified Code(s): E66.01 - Morbid ( severe) obesity due to excess calories (7) Sleep apnea Current Visit: No Status: Chronic Qualifiers: Sleep apnea type: unspecified type Qualified Code(s): G47.30 - Sleep apnea , unspecified (8) PRAVEENA (acute kidney injury) Current Visit: Yes Status: Acute (9) Acute respiratory failure with hypoxia Current Visit: Yes Status: Acute (10) Hospital acquired PNA Current Visit: Yes Status: Acute (11) Hypomagnesemia Current Visit: Yes Status: Acute (12) Hypoxia Current Visit: Yes Status: Acute (13) Leucocytosis Current Visit: Yes Status: Acute Qualifiers: Leukocytosis type: unspecified Qualified Code(s): D72.829 - Elevated white blood cell count, unspecified Subjective Principal diagnosis: PRAVEENA Interval history: Patient was seen this morning awaiting plan as per hospitalist Afebrile vital signs stable Operative extremity: Neurovascularly intact Bloody drainage [place] added DC Lovenox Calves nontender Assessment and plan: Continue with postoperative care continue to monitor his breathing on IV antibiotics continue plan as per hospitalist white count improving plan for discharge today Objective Vital signs: Vital Signs Temp Pulse Resp BP Pulse Ox 05/06/16 05:38 97.8 F 77 16 165/98 96 05/06/16 04:13 20 97 05/06/16 01:14 98.2 F 74 18 148/81 94 L 05/05/16 23:21 22 95 05/05/16 19:45 97.9 F 77 15 157/97 94 L 05/05/16 16:36 18 95 05/05/16 15:11 97.7 F 71 16 165/86 93 L 05/05/16 11:04 97.9 F 68 15 145/89 93 L Intake and Output 05/05/16 05/05/16 05/06/16 15:59 23:59 07:59 Intake Total 400 / 400 550 / 550 100 / 100 Output Total 500 / 500 350 / 350 800 / 800 Balance -100 / -100 200 / 200 -700 / -700 Intake: IV Fluids 400 / 400 550 / 550 100 / 100 Levaquin 750mg/150 mL 750 150 / 150 mg In 150 ml @ 100 mls/ hr IVPB Q48H [facility] Rx#: [id number] Zyvox 600mg/300mL 600 mg 300 / 300 300 / 300 In 300 ml @ 150 mls/hr IVPB Q12H [facility] Rx#: [id number] Zosyn 3.375 GM In 100 / 100 100 / 100 100 / 100 Dextrose 5% (Minibag+) 100 ML 100 ML @ 25 mls/hr IVPB Q8H [facility] Rx#: [id number] Output: Urine 500 / 500 350 / 350 800 / 800 Other: Stool Size Large Stool Consistency loose Stool Color Brown # Voids 1 # Bowel Movements 1 Blood Glucose* 176 157 - Labs CBC & BMP: 05/06/16 04:40 05/05/16 04:35 Labs: Abnormal lab results WBC 22.6 K/mcL (4.3-11.1) H 05/06/16 04:40 RBC 3.62 M/mcL (4.19-5.50) L 05/06/16 04:40 Hgb 9.9 g/dL (12.9-16.9) L 05/06/16 04:40 Hct 30.7 % (37.5-50.1) L 05/06/16 04:40 MCH 27.3 pg (28.0-33.3) L 05/06/16 04:40 RDW 16.7 % (11.5-14.5) H 05/06/16 04:40 MPV 8.6 fL (9.4-12.4) L 05/06/16 04:40 Immature Gran % 4.4 % (0-4) H 05/03/16 08:32 Metamyelocytes % 2.0 % (0) H 05/06/16 04:40 Myelocytes % 2.0 % (0) H 05/04/16 04:38 Neutrophils # 16.3 K/mcL (1.6-8.9) H 05/06/16 04:40 Monocytes # 2.3 K/mcL (0.0-1.3) H 05/06/16 04:40 Nucleated RBCs/100 WBC 1.2 /100 WBC (0) H 05/06/16 04:40 Reactive Lymphocytes Present (Not Present) A 05/06/16 04:40 Toxic Granulation Present (Not Present) A 05/05/16 04:35 Immature Plt Fraction 1.0 % (1.1-6.1) L 05/01/16 08:15 Polychromasia 1+ (Not Present) A 05/06/16 04:40 Anisocytosis 1+ (Not Present) A 05/06/16 04:40 Microcytosis Present (Not Present) A 05/06/16 04:40 ESR 78 mm/hr (0-10) H 05/05/16 04:35 ABG pH 7.46 pH Units (7.32-7.45) H 05/01/16 08:40 ABG pCO2 30 mmHg (35-45) L 05/01/16 08:40 ABG pO2 72 mmHg (85-104) L 05/01/16 08:40 VBG pO2 78 mmHg (25-40) H 04/29/16 22:00 BUN 41 mg/dL (8-26) H 05/05/16 04:35 Creatinine 1.81 mg/dL (0.72-1.25) H 05/05/16 04:35 Est GFR ( Amer) 44 (> 60) L 05/05/16 04:35 Est GFR (Non-Af Amer) 37 (> 60) L 05/05/16 04:35 Glucose 120 mg/dL (70-99) H 05/05/16 04:35 POC Glucose 157 (58-89) H 05/05/16 19:51 Calculated Osmolality 301 (280-300) H 05/05/16 04:35 Calcium 7.5 mg/dL (8.6-10.8) L 05/05/16 04:35 Magnesium 1.5 mg/dL (1.6-2.6) L 04/29/16 04:06 C-Reactive Protein 22 mg/L (Less than 5) H 05/05/16 04:35 B-Natriuretic Peptide 559 pg/mL (0-100) H 05/05/16 04:35 Albumin 2.2 g/dL (3.5-5.0) L 05/05/16 04:35 Globulin 3.7 g/dL (2.4-3.5) H 04/28/16 03:06 Albumin/Globulin Ratio 0.8 (1.1-2.2) L 04/28/16 03:06 Urine Clarity Cloudy (Clear) A 04/28/16 20:25 Ur Specific [place] 1.027 (1.010-1.025) H 04/28/16 20:25 Urine Protein 30 mg/dL (Neg-Trace) H 04/28/16 20:25 Urine Glucose (UA) 100 mg/dL (Normal) H 04/28/16 20:25 Ur Leukocyte Esterase Small (Negative) H 04/28/16 20:25 Urine Microscopic RBC 5-15 per hpf (0-3) H 04/28/16 20:25 Urine Microscopic WBC 15-30 per hpf (0-3) H 04/28/16 20:25 Ur Squamous Epith Cells Many per lpf (None-Few) H 04/28/16 20:25 Ur Culture Indicated? YES (NO) A 04/28/16 20:25 Vancomycin Trough 21.8 mcg/mL (10-20) H* 05/01/16 02:35 - VTE Documentation of Mechanical Device: Venous foot pump, device Consult Discharge Plan - Plan Referrals: Seth Lau MD [Partnered Physician] - 05/26/16 10:05 am Cristy Grady, PAC [Physician Leave Manager] - 07/08/16 10:00 am Desi Valdez, HOUSE RN [Primary Care Provider] - 07/08/16 10:30 am
[2016-05-06 08:11] VITALS: BP 159/79
--- NOTE | 2016-05-06 08:40 | Physician Discharge Referral ---
ExtendedCare Referral Info Transfer To: [facility] Provider in Charge after Transfer: PCP Institutional Level of Care: Skilled - Diagnosis (1) PRAVEENA (acute kidney injury) Priority: Primary Status: Acute (2) Acute respiratory failure with hypoxia Priority: Primary Status: Acute (3) Hospital acquired PNA Priority: Primary Status: Acute (4) Hypoxia Priority: Secondary Status: Acute (5) Leucocytosis Priority: Secondary Status: Acute (6) Sepsis Priority: Primary Status: Acute (7) Shoulder pain, right Priority: Secondary Status: Acute (8) Hypertension Priority: Secondary Status: Chronic (9) Sleep apnea Priority: Secondary Status: Chronic - Transfer Medications Prescriptions: OxyCODONE Immed Rel [Roxicodone 5 MG] 5 mg PO Q4HR PRN #15 tablet PRN Reason: Mild pain 1-3 OxyCODONE Immed Rel [Roxicodone 5 MG] 10 mg PO Q6HR PRN #15 tablet PRN Reason: Moderate pain 4-6 Levofloxacin [Levaquin] 750 mg PO Q48H #4 tablet Linezolid 600 mg PO BID #10 tablet PredniSONE 40 mg PO DAILY #30 tablet Home Medications: Aspirin Enteric Coated [Aspirin EC] 81 mg PO QAM 10/12/14 [History] Metoprolol [Lopressor] 100 mg PO BID 10/12/14 [History] Omeprazole [PriLOSEC] 20 mg PO QAM 10/12/14 [History] Bimatoprost [Lumigan] 1 drop OP QPM 03/29/15 [History] Dorzolamide HCl/Timolol Maleat [Cosopt Eye Drops] 1 drop OP BID 03/29/15 [ History] GlipiZIDE XL (24 HR) [Glucotrol XL] 10 mg PO BID 03/29/15 [History] Simvastatin [Zocor] 40 mg PO HS 03/29/15 [History] Cyanocobalamin/Folic Acid [Vitamin D22-Blksr Acid Tablet] 1 each PO DAILY #30 tablet 03/31/15 [Rx] Amlodipine [Norvasc] 10 mg PO DAILY 05/27/15 [History] Multivit-Min/FA/Lycopen/Lutein [Men 50 Plus Multivitamin Tab] 1 tab PO DAILY [History] Thiamine Mononitrate [Vitamin B-1] 100 mg PO DAILY 04/27/16 [History] Acetaminophen [Tylenol] 650 mg PO Q4HR PRN #0 tablet 05/06/16 [Rx] Chloraseptic [place] [Chloraseptic] 1 spray MM QID PRN #0 bottle 05/06/16 [Rx] Docusate [Colace] 100 mg PO BID capsule 05/06/16 [Rx] Insulin DETEMIR [Levemir] 45 unit SQ BID [id number] 05/06/16 [Rx] Insulin LISPRO [HumaLOG] 15 units SQ TIDWM vial 05/06/16 [Rx] Ipratropium/Albuterol Neb [Duoneb] 3 ml IH [id number] PRN #0 inhsol 05/06/16 [Rx] Ipratropium/Albuterol Neb [Duoneb] 3 ml IH [id number] inhsol 05/06/16 [Rx] Latanoprost [Xalatan] 1 drop BOTH EYES HS bottle 05/06/16 [Rx] Levofloxacin [Levaquin] 750 mg PO Q48H #4 tablet 05/06/16 [Rx] Linezolid 600 mg PO BID #10 tablet 05/06/16 [Rx] MOM Conc [MILK OF MAGNESIA conc] 5 ml PO HS PRN #0 ud.liq 05/06/16 [Rx] Ondansetron [Zofran] 4 mg IVP Q6HR PRN #0 vial 05/06/16 [Rx] OxyCODONE Immed Rel [Roxicodone 5 MG] 5 mg PO Q4HR PRN #15 tablet 05/06/16 [Rx] OxyCODONE Immed Rel [Roxicodone 5 MG] 10 mg PO Q6HR PRN #15 tablet 05/06/16 [Rx] PredniSONE 40 mg PO DAILY #30 tablet 05/06/16 [Rx] Temazepam [Restoril] 15 mg PO HS PRN #0 capsule 05/06/16 [Rx] Allergies/Adverse Reactions: Allergies codeine Adverse Reaction (Mild, Verified 10/24/14 12:35) Agitated - Respiratory Orders Oxygen / L per min (2-3 L /min to achieve OSat 92 % at least) Smoking Cessation: Smoking cessation has been advised. For more information, call the [place] Tobacco Quit Line at 5-425-EJUY-NOW. - Mobility Orders Other (As per physical therapy) - Diet Orders Renal, Cardiac CERTIFICATION: I certify that the transfer of the above named patient to an Extended Care Facility is necessary for the continuing treatment of the diagnosis listed. The above information is true and accurate reflection of patient's current condition. Confidential - Redisclosure prohibited without a patient's written consent.
--- NOTE | 2016-05-06 08:41 | Discharge Summary ---
Date of Encounter: 05/06/16 Time of Encounter: 20:40 - Discharge Diagnosis (1) PRAVEENA (acute kidney injury) Priority: Primary Status: Acute (2) Acute respiratory failure with hypoxia Priority: Primary Status: Acute (3) Hospital acquired PNA Priority: Primary Status: Acute (4) Hypoxia Priority: Secondary Status: Acute (5) Leucocytosis Priority: Secondary Status: Acute Qualifiers: Leukocytosis type: unspecified Qualified Code(s): D72.829 - Elevated white blood cell count, unspecified (6) Sepsis Priority: Primary Status: Acute Qualifiers: Sepsis type: sepsis due to unspecified organism Qualified Code(s): A41.9 - Sepsis, unspecified organism (7) Shoulder pain, right Priority: Secondary Status: Chronic Qualifiers: Chronicity: chronic Qualified Code(s): M25.511 - Pain in right shoulder; G89.29 - Other chronic pain (8) Hypertension Priority: Secondary Status: Chronic Qualifiers: Hypertension type: essential hypertension Qualified Code(s): I10 - Essential (primary) hypertension (9) Sleep apnea Priority: Secondary Status: Chronic Qualifiers: Sleep apnea type: unspecified type Qualified Code(s): G47.30 - Sleep apnea , unspecified - Discharge Medications Prescriptions: OxyCODONE Immed Rel [Roxicodone 5 MG] 5 mg PO Q4HR PRN #15 tablet PRN Reason: Mild pain 1-3 OxyCODONE Immed Rel [Roxicodone 5 MG] 10 mg PO Q6HR PRN #15 tablet PRN Reason: Moderate pain 4-6 Levofloxacin [Levaquin] 750 mg PO Q48H #4 tablet Linezolid 600 mg PO BID #10 tablet PredniSONE 40 mg PO DAILY #30 tablet Home Medications: Aspirin Enteric Coated [Aspirin EC] 81 mg PO QAM 10/12/14 [History] Metoprolol [Lopressor] 100 mg PO BID 10/12/14 [History] Omeprazole [PriLOSEC] 20 mg PO QAM 10/12/14 [History] Bimatoprost [Lumigan] 1 drop OP QPM 03/29/15 [History] Dorzolamide HCl/Timolol Maleat [Cosopt Eye Drops] 1 drop OP BID 03/29/15 [ History] GlipiZIDE XL (24 HR) [Glucotrol XL] 10 mg PO BID 03/29/15 [History] Simvastatin [Zocor] 40 mg PO HS 03/29/15 [History] Cyanocobalamin/Folic Acid [Vitamin V67-Nlcfe Acid Tablet] 1 each PO DAILY #30 tablet 03/31/15 [Rx] Amlodipine [Norvasc] 10 mg PO DAILY 05/27/15 [History] Multivit-Min/FA/Lycopen/Lutein [Men 50 Plus Multivitamin Tab] 1 tab PO DAILY [History] Thiamine Mononitrate [Vitamin B-1] 100 mg PO DAILY 04/27/16 [History] Acetaminophen [Tylenol] 650 mg PO Q4HR PRN #0 tablet 05/06/16 [Rx] Chloraseptic [place] [Chloraseptic] 1 spray MM QID PRN #0 bottle 05/06/16 [Rx] Docusate [Colace] 100 mg PO BID capsule 05/06/16 [Rx] Insulin DETEMIR [Levemir] 45 unit SQ BID [id number] 05/06/16 [Rx] Insulin LISPRO [HumaLOG] 15 units SQ TIDWM vial 05/06/16 [Rx] Ipratropium/Albuterol Neb [Duoneb] 3 ml IH [id number] PRN #0 inhsol 05/06/16 [Rx] Ipratropium/Albuterol Neb [Duoneb] 3 ml IH [id number] inhsol 05/06/16 [Rx] Latanoprost [Xalatan] 1 drop BOTH EYES HS bottle 05/06/16 [Rx] Levofloxacin [Levaquin] 750 mg PO Q48H #4 tablet 05/06/16 [Rx] Linezolid 600 mg PO BID #10 tablet 05/06/16 [Rx] MOM Conc [MILK OF MAGNESIA conc] 5 ml PO HS PRN #0 ud.liq 05/06/16 [Rx] Ondansetron [Zofran] 4 mg IVP Q6HR PRN #0 vial 05/06/16 [Rx] OxyCODONE Immed Rel [Roxicodone 5 MG] 5 mg PO Q4HR PRN #15 tablet 05/06/16 [Rx] OxyCODONE Immed Rel [Roxicodone 5 MG] 10 mg PO Q6HR PRN #15 tablet 05/06/16 [Rx] PredniSONE 40 mg PO DAILY #30 tablet 05/06/16 [Rx] Temazepam [Restoril] 15 mg PO HS PRN #0 capsule 05/06/16 [Rx] Allergies/Adverse Reactions: Allergies codeine Adverse Reaction (Mild, Verified 10/24/14 12:35) Agitated Procedures/tests Complete & Pending: Procedures Performed prior 72 hours Category Date Time Status EV echocardiogram Routine Y 05/05/16 17:27 Completed Venous Doppler [EV venous imaging LE BI] Routine Y 05/04/16 06:44 Completed Date of admission: 04/27/16 17:43 Primary care physician: Desi Valdez CNP Consults: 04/27/16 18:06 Consult to Occupational Therapy [CONS] Routine Comment: post shoulder surgery Consult to Physical Therapy [CONS] Routine Comment: post shoulder surgery RT Post Op Consult [CONS] Routine 04/28/16 01:29 Consult to Hospitalist [CONS] Routine Consulting Provider: Hospitalist Dea Reason for Consult: Oxygen Saturation Call Completed: No 04/29/16 08:51 Consult to Grinder Set Up Operator [employer] [CONS] Routine Reason for SW Consult: DISCHARGE PLANNING 05/01/16 09:15 Consult to Nephrology [CONS] Routine Consulting Provider: [facility] [place]/[facility]O/[facility]REGORY Reason for Consult: please evaluate for worsening PRAVEENA in this patient being treated for HAP. thank you Call Completed: Yes Discharging clinician: Ranjan Quiroz Anticipated date of discharge: 05/06/16 - Patient Status Disposition: Transfer SNF Condition: Fair Functional capacity at discharge: independent ambulation Overall status at discharge: patient is progressing back to baseline - Discharge Instructions Follow Up With: Seth Lau MD [Partnered Physician] - 05/26/16 10:05 am Cristy Grady PAC [Physician Patrol Conductor] - 07/08/16 10:00 am Desi Valdez CNP [Primary Care Provider] - 07/08/16 10:30 am - Diet and Activity Activity: as per physical therapy, resume usual activities as tolerated, wear oxygen at all times Diet: diabetic diet, low fat, low cholesterol, low salt diet Interval History: Mr. iWllis is a 75 year old male with past medical history significant for diabetes mellitus, hypertension, hyperlipidemia, glaucoma and arthritis was admitted to orthopedic service following revision of right total shoulder arthroplasty. Hospitalist team was consulted for management of hypoxia post- operatively. Hospital course: Mr. Willis is a 75 year old male admitted by orthopedics for revision of right shoulder arthroplasty Patient's hospital stay has been complicated by acute kidney injury secondary to dye administration, acute respiratory failure with hypoxia secondary to multifocal pneumonia, possible ventilator associated pneumonia, and persistent leukocytosis and hyperglycemia secondary to steroid use. Nephrology was consulted for management of his PRAVEENA His leukocytosis has started to trend down He has been afebrile since 04/29/16 His acute respiratory failure with hypoxia was due to HCAP sepsis, this has improved significantly and his oxygen requirement has improved. Blood cultures were negative, Urine Legionella and Streptococcal Ag were negative. PRAVEENA was due to sepsis, dye, and possibly medications. Renal US do not show any obstruction or hydronephrosis.His creatinine improved and is stable Echocardiography done today reveals a left ventricular ejection fraction 55%. Moderate to severe increased left ventricular thickness moderate left ventricular diastolic dysfunction and mild pulmonary hypertension. He had pedal edema and scrotal edema which are also improving. He is seen at bedside with no new complains He is stable for discharge to in-patient rehab/SNF for therapy He received 3 days f Levaquin in the hospital, will be discharged on oral to complete 7 days, he received one day of Vancomycin prior to discontinuation and 2 days of Linezolid. He will be discharged on po Linezolid to complete 7 days He was on NSAIDs, Metformin, Glipizide at home, these have been held due to PRAVEENA and Uncontrolled DM requiring high doses of insulin Patient was educated on need for repeat CBC and Chem at SNF in a couple of days to ensure stability Ensure CPAP at night for AVILA Continue other chronic medications Plan of care discussed, verbalized understanding He is Full Code Refused Flu shot - Time Spent with Patient Total time spent providing and/or coordinating discharge services: Greater than 30 minutes (50 minutes spent with face to face encounter, medication reconciliation and prescriptions.) - Constitutional Vitals: Temp Pulse Resp BP Pulse Ox 97.4 F L 76 14 159/79 95 05/06/16 08:02 05/06/16 08:02 05/06/16 08:02 05/06/16 08:02 05/06/16 08:02 General appearance: Present: A&O X 3, no acute distress, obese - Head Head exam: Present: atraumatic, normocephalic - Eye Eye exam: Present: PERRL, conjuntiva pink, sclera anicteric Pupils: Present: PERRL - Neck Neck exam general surgery: Present: supple, trachea midline. Absent: lymphadenopathy - Respiratory Respiratory exam: Present: CTAB. Absent: accessory muscle use, rales, rhonchi, wheezes - Cardiovascular Cardiovascular exam: Present: RRR, +S1, +S2. Absent: diastolic murmur, gallop, rubs, systolic murmur - GI/Abdominal Additional comments: Obese, soft, not tender, no palpably enlarged organs - Extremities Exam Extremities exam: Present: pedal edema (1+ bilateral pedal edema) - Neurological Exam Neurological exam: Present: alert, CN II-XII intact, oriented X3, no focal deficits. Absent: pronater drift, facial droop, speech deficit - Skin Skin exam: Present: dry - VTE Documentation of Mechanical Device: Venous foot pump, device
[2016-05-06] MEDS ORDERED: predniSONE 20 MG TABLET PO SCH (09:00)
[2016-05-06] MEDS: Cyanocobalamin (B-12) 1,000 MCG TABLET PO SCH (09:26)
[2016-05-06] MEDS: Aspirin Enteric Coated 81 MG Tablet PO SCH (09:26)
[2016-05-06] MEDS: Metoprolol 100 MG TABLET PO SCH (09:26)
[2016-05-06] MEDS: amLODIPine 5 MG TABLET PO SCH (09:26)
[2016-05-06] MEDS: Thiamine (B-1) 100 MG TABLET PO SCH (09:26)
[2016-05-06] MEDS: Sennosides 8.6 MG TABLET PO SCH (09:27)
[2016-05-06] MEDS: Multivit/Ca/Min/Fe/FA 1 TAB TABLET PO SCH (09:27)
[2016-05-06] MEDS: Insulin LISPRO 300 UNITS/3 ML VIAL SQ SCH ×2 (09:29→09:30)
[2016-05-06] MEDS: Insulin DETEMIR 100 UNIT/ML X5UNITS SQ SCH (09:30)
[2016-05-06] MEDS: Dorzolamide/Timolol OPTH 10 ML BOTTLE RIGHT EYE SCH (09:38)
--- NOTE | 2016-05-06 12:19 | Nephrology Progress Note ---
Date of Encounter: 05/06/16 Time of Encounter: 12:17 - Assessment and Plan (1) PRAVEENA (acute kidney injury) Current Visit: Yes Status: Acute good urine output. No new labs today. Anticipate his renal function will recover to baseline. Avoid nephrotoxins. If he is discharged today then he should have a BMP in 2 days with results to [facility] and his PCP. (2) Hospital acquired PNA Current Visit: Yes Status: Acute Continue antibiotics. Per primary team. (3) Diabetes Current Visit: No Status: Chronic Per primary team. Qualifiers: Diabetes mellitus type: type 2 Diabetes mellitus complication status: with unspecified complications Diabetes mellitus detention insulin use: unspecified detention insulin use status Qualified Code(s): E11.8 - Type 2 diabetes mellitus with unspecified complications (4) Obesities, morbid Current Visit: No Status: Chronic outpatient management. Qualifiers: Obesity type: unspecified obesity type Qualified Code(s): E66.01 - Morbid ( severe) obesity due to excess calories Subjective Principal diagnosis: PRAVEENA Interval history: Patient seen. He has no new complaint. He anticipates being discharged today. Objective - Vital Signs Vital signs: Vital Signs Temp Pulse Resp BP Pulse Ox 05/06/16 11:42 14 92 L 05/06/16 09:17 92 L 05/06/16 08:02 97.4 F L 76 14 159/79 95 05/06/16 05:38 97.8 F 77 16 165/98 96 05/06/16 04:13 20 97 05/06/16 01:14 98.2 F 74 18 148/81 94 L 05/05/16 23:21 22 95 05/05/16 19:45 97.9 F 77 15 157/97 94 L 05/05/16 16:36 18 95 05/05/16 15:11 97.7 F 71 16 165/86 93 L Intake and Output 05/05/16 05/06/16 05/06/16 23:59 07:59 15:59 Intake Total 550 / 550 100 / 100 360 / 360 Output Total 350 / 350 800 / 800 Balance 200 / 200 -700 / -700 360 / 360 Intake: IV Fluids 550 / 550 100 / 100 Levaquin 750mg/150 mL 750 150 / 150 mg In 150 ml @ 100 mls/ hr IVPB Q48H [facility] Rx#: [id number] Zyvox 600mg/300mL 600 mg 300 / 300 In 300 ml @ 150 mls/hr IVPB Q12H [facility] Rx#: [id number] Zosyn 3.375 GM In 100 / 100 100 / 100 Dextrose 5% (Minibag+) 100 ML 100 ML @ 25 mls/hr IVPB Q8H [facility] Rx#: [id number] Oral 360 / 360 Output: Urine 350 / 350 800 / 800 Other: Meal Breakfast Percent of Meal Consumed 100% Blood Glucose* 157 84 - General Appearance General appearance: Present: well-developed, well-nourished, obese Neck: Present: supple Neurologic: Present: alert and oriented x3 Psychiatric: Present: mood/affect appropriate - Lab 05/06/16 04:40 05/05/16 04:35 Most recent lab results ABG pH 7.46 pH Units (7.32-7.45) H 05/01/16 08:40 ABG pCO2 30 mmHg (35-45) L 05/01/16 08:40 ABG pO2 72 mmHg (85-104) L 05/01/16 08:40 ABG HCO3 21.3 mEQ/L (21-27) 05/01/16 08:40 ABG O2 Saturation 95 % (95-98) 05/01/16 08:40 Calcium 7.5 mg/dL (8.6-10.8) L 05/05/16 04:35 Magnesium 1.5 mg/dL (1.6-2.6) L 04/29/16 04:06 Urine Sodium 28.0 mEq/L 05/01/16 14:10 - VTE Documentation of Mechanical Device: Venous foot pump, device Consult Discharge Plan - Plan Referrals: Seth Lau MD [Partnered Physician] - 05/26/16 10:05 am Cristy Grady, PAC [Physician Four Slide Machine Setter] - 07/08/16 10:00 am Desi Valdez CNP [Primary Care Provider] - 07/08/16 10:30 am Prescriptions: OxyCODONE Immed Rel [Roxicodone 5 MG] 5 mg PO Q4HR PRN #15 tablet PRN Reason: Mild pain 1-3 OxyCODONE Immed Rel [Roxicodone 5 MG] 10 mg PO Q6HR PRN #15 tablet PRN Reason: Moderate pain 4-6 Levofloxacin [Levaquin] 750 mg PO Q48H #4 tablet Linezolid 600 mg PO BID #10 tablet PredniSONE 40 mg PO DAILY #30 tablet
== END 2016-05-06 13:30 | DRG 483 ==
LOC: SAMDAY 11:10 → 3NENU 17:43 → SUATTDRO 17:43
PROVIDERS: ADMIT Orthopaedic Surgery; ATTEND Internal Medicine

== ENCOUNTER 2017-01-01 12:03 | Inpatient (IN) ==
[2017-01-01 12:49] LABS: Basophils % 0.3 %; Eosinophils # 0.2 K/mcL (0.0-0.6); Eosinophils % 1.7 %; Hematocrit 35.7 % (37.5-50.1); Hemoglobin 10.9 g/dL (12.9-16.9); Immature Granulocytes % 0.3 % (0-4); Lymphocytes # 2.1 K/mcL (0.6-4.6); Lymphocytes % 24.3 %; Mean Corpuscular HGB Conc 30.5 g/dL (31.6-35.5); Mean Corpuscular Hemoglobin 25.3 pg (28.0-33.3); Mean Corpuscular Volume 82.8 fL (83.0-100.0); Mean Platelet Volume 8.7 fL (9.4-12.4); Monocytes # 0.6 K/mcL (0.0-1.3); Monocytes % 6.9 %; Neutrophils # 5.7 K/mcL (1.6-8.9); Platelet Count 323 K/mcL (140-400); Red Blood Count 4.31 M/mcL (4.19-5.50); Red Cell Distribution Width 19.9 % (11.5-14.5); Segmented Neutrophils % 66.5 %
[2017-01-01 12:54] LABS: Prothrombin Time 11.2 Seconds (9.4-12.1)
[2017-01-01 12:57] LABS: Activated Partial Thrombo Time 28.1 Seconds (26.0-36.0)
[2017-01-01 13:00] LABS: BUN/Creatinine Ratio 15 (6-26); Blood Urea Nitrogen 17 mg/dL (8-26); Carbon Dioxide 23 mEq/L (19-29); Chloride 108 mEq/L (98-109); Glucose 132 mg/dL (70-99); Osmolality,Calculated 297 (280-300); Potassium 4.5 mEq/L (3.5-4.5); Sodium 142 mEq/L (136-145); eGFR For African Americans > 60 (> 60); eGFR For Non-African Americans > 60 (> 60)
[2017-01-01] MEDS ORDERED: Aspirin 81 MG TAB.CHEW PO ONE (13:14)
--- NOTE | 2017-01-01 13:54 | Emergency Department Note ---
Disposition Clinical Impression: Elevated troponin Acute exacerbation of CHF (congestive heart failure) Qualifiers: Congestive heart failure type: unspecified congestive heart failure type Qualified Code(s): I50.9 - Heart failure, unspecified Dyspnea Qualifiers: Dyspnea type: unspecified Qualified Code(s): R06.00 - Dyspnea, unspecified Disposition: Admitted As Inpatient Condition: Good Referrals: Desi Valdez CLERICAL ORDER FILLER [Primary Care Provider] - Forms: ED Satisfaction Letter General Adult HPI - General Chief complaint: ED Chest Pain Stated complaint: Chest pain/cough Time Seen by Provider: 01/01/17 12:52 Source: patient, family Limitations: no limitations Nursing Notes Reviewed: Yes Vital Signs Reviewed: Yes - History of Present Illness HPI Narrative: 76-year-old male who reports 3 days of dyspnea with exertion. He denies having any chest pain. He does admit to some pressure in his chest. He denies having any coronary arterial disease. He does have a history of COPD and hypertension. He does take a baby aspirin daily and took one today. He denies having a productive cough. He denies any fever or nausea or vomiting. He denies any abdominal pain Pain Scale: 3 Consistency: constant Improves with: rest Worsens with: other (Exertion) Associated symptoms: Reports: denies other symptoms Treatments Prior to Arrival: none - Related Data Home Medications Medication Instructions Recorded Confirmed Aspirin Enteric Coated [Aspirin EC] 81 mg PO QAM 10/12/14 01/01/17 Metoprolol [Lopressor] 100 mg PO BID 10/12/14 01/01/17 Omeprazole [PriLOSEC] 20 mg PO QAM 10/12/14 01/01/17 GlipiZIDE XL (24 HR) [Glucotrol XL] 10 mg PO BID 03/29/15 01/01/17 Simvastatin [Zocor] 40 mg PO HS 03/29/15 01/01/17 amLODIPine [Norvasc] 10 mg PO DAILY 05/27/15 01/01/17 Multivit-Min/FA/Lycopen/Lutein 1 tab PO DAILY 04/27/16 01/01/17 [Men 50 Plus Multivitamin Tab] Thiamine Mononitrate [Vitamin B-1] 100 mg PO DAILY 04/27/16 01/01/17 Lisinopril [Zestril] 40 mg PO DAILY 01/01/17 01/01/17 Allergies Allergy/AdvReac Type Severity Reaction Status Date / Time codeine AdvReac Mild Agitated Verified 12/15/16 10:09 All systems ED: reviewed and negative except as stated. Constitutional: Denies: fever ENT ED: Denies: throat pain Cardiovascular: Reports: dyspnea on exertion. Denies: chest pain Respiratory: Reports: dyspnea. Denies: cough Gastrointestinal: Denies: abdominal pain Integumentary: Denies: rash Endocrine: Reports: fatigue Past Medical History - Past Medical History Medical history: Reports: arthritis, diabetes, GERD, glaucoma, hyperlipidemia, hypertension, other Surgical history: Reports: cholecystectomy, orthopedic, other, other Psychiatric history: Reports: anxiety - Social History Smoking Status: Former smoker Smokeless Tobacco Status: No Alcohol use: Reports: none Drug use: Reports: none, other Physical Exam - General Limitations: no limitations General appearance: alert - Head Head exam: atraumatic - Eye Eye exam: Present: normal appearance, PERRL - ENT ENT exam: normal exam, normal oropharynx - Neck Neck exam: Present: normal inspection - Chest Chest inspection: Present: normal inspection - Respiratory Respiratory exam: Present: normal lung sounds bilaterally. Absent: respiratory distress - Cardiovascular Cardiovascular exam: Present: regular rate, normal rhythm - Abdominal Exam Abdominal exam: Present: soft, Non-Tender - Extremities Exam Extremities exam: Present: normal inspection - Neurological Exam Neurological exam: Present: alert, oriented X3 - Psychiatric Psychiatric exam: Present: normal affect, normal mood - Skin Skin exam: Present: warm, dry Course Course Narrative: His EKG shows sinus rhythm with first-degree AV block. There is no ST elevation. There is a T-wave inversion in lead 3 and V5 and V6. His troponin is mildly elevated at 0.05. Chest x-ray has some congestion. Lab work otherwise unremarkable. He will be admitted to the hospital due to his elevated troponin and CHF exacerbation. His BNP is elevated and he is short of breath and he has increased markings on his chest x-ray. He is likely experiencing congestive heart failure. He denies a history of CHF. Accepted by [facility]. Vital Signs Temperature 97.9 F 01/01/17 12:08 Pulse Rate 74 01/01/17 12:08 Respiratory Rate 20 01/01/17 12:08 Blood Pressure 185/101 01/01/17 12:08 O2 Sat by Pulse Oximetry 95 01/01/17 12:08 Temperature 97.9 F 01/01/17 12:08 Pulse Rate 71 01/01/17 14:33 Respiratory Rate 22 01/01/17 14:33 Blood Pressure 166/106 01/01/17 14:33 O2 Sat by Pulse Oximetry 95 01/01/17 14:33 Oxygen Delivery Oxygen Delivery Room Air Medical Decision Making - Medical Records Medical records reviewed: Yes I reviewed the patient's medical records. - Lab Data Lab results reviewed: Yes I reviewed the patient's lab results. Result diagrams: 01/01/17 12:42 01/01/17 12:42 Lab Results 01/01/17 01/01/17 01/01/17 Range/Units 12:42 12:42 12:42 WBC 8.6 (4.3-11.1) K/mcL RBC 4.31 (4.19-5.50) M/mcL Hgb 10.9 L (12.9-16.9) g/dL Hct 35.7 L (37.5-50.1) % MCV 82.8 L (83.0-100.0) fL MCH 25.3 L (28.0-33.3) pg MCHC 30.5 L (31.6-35.5) g/dL RDW 19.9 H (11.5-14.5) % Plt Count 323 (140-400) K/mcL MPV 8.7 L (9.4-12.4) fL Immature Gran % 0.3 (0-4) % Seg Neutrophils % 66.5 % Lymphocytes % 24.3 % Monocytes % 6.9 % Eosinophils % 1.7 % Basophils % 0.3 % Neutrophils # 5.7 (1.6-8.9) K/mcL Lymphocytes # 2.1 (0.6-4.6) K/mcL Monocytes # 0.6 (0.0-1.3) K/mcL Eosinophils # 0.2 (0.0-0.6) K/mcL Basophils # 0.0 (0.0-0.2) K/mcL PT 11.2 (9.4-12.1) Seconds INR 1.0 APTT 28.1 (26.0-36.0) Seconds Sodium 142 (136-145) mEq/L Potassium 4.5 (3.5-4.5) mEq/L Chloride 108 (98-109) mEq/L Carbon Dioxide 23 (19-29) mEq/L BUN 17 (8-26) mg/dL Creatinine 1.14 (0.72-1.25) mg/dL Est GFR ( Amer) > 60 (> 60) Est GFR (Non-Af Amer) > 60 (> 60) BUN/Creatinine Ratio 15 (6-26) Glucose 132 H (70-99) mg/dL Calculated Osmolality 297 (280-300) Calcium 9.0 (8.6-10.8) mg/dL Troponin I (0-0.03) ng/mL B-Natriuretic Peptide (0-100) pg/mL 01/01/17 01/01/17 Range/Units 12:42 12:42 WBC (4.3-11.1) K/mcL RBC (4.19-5.50) M/mcL Hgb (12.9-16.9) g/dL Hct (37.5-50.1) % MCV (83.0-100.0) fL MCH (28.0-33.3) pg MCHC (31.6-35.5) g/dL RDW (11.5-14.5) % Plt Count (140-400) K/mcL MPV (9.4-12.4) fL Immature Gran % (0-4) % Seg Neutrophils % % Lymphocytes % % Monocytes % % Eosinophils % % Basophils % % Neutrophils # (1.6-8.9) K/mcL Lymphocytes # (0.6-4.6) K/mcL Monocytes # (0.0-1.3) K/mcL Eosinophils # (0.0-0.6) K/mcL Basophils # (0.0-0.2) K/mcL PT (9.4-12.1) Seconds INR APTT (26.0-36.0) Seconds Sodium (136-145) mEq/L Potassium (3.5-4.5) mEq/L Chloride (98-109) mEq/L Carbon Dioxide (19-29) mEq/L BUN (8-26) mg/dL Creatinine (0.72-1.25) mg/dL Est GFR ( Amer) (> 60) Est GFR (Non-Af Amer) (> 60) BUN/Creatinine Ratio (6-26) Glucose (70-99) mg/dL Calculated Osmolality (280-300) Calcium (8.6-10.8) mg/dL Troponin I 0.05 H* (0-0.03) ng/mL B-Natriuretic Peptide 543 H (0-100) pg/mL - Radiology Data Radiology results reviewed: Yes I reviewed the patient's radiology results. - EKG Data EKG #1 EKG shows normal: sinus rhythm Rate: normal Rhythm: NSR [place]/QRS: left axis deviation Heart block present: 1st Degree When compared to previous EKG there are: changes noted (New T wave inversion in V6 and lead 3) Interpretation: nonspecific ST-T wave changes Critical Care Time Critical Care Time: Yes Total Critical Care Time: 35 Attestation: Grippo care time 35 minutes. IV Lasix for CHF. Attestation Statement - Attestation Attestation: Patient was seen with resident physician. I reviewed the history, physical, assessment and plan, and agree with the findings. I also personally evaluated this patient and had [id number] time with this patient. 76-year-old male presents to the emergency department shortness of breath and chest tightness. Patient states she has been more short of breath the last couple days. He says the chest tightness is across his chest anteriorly and typically associated with deep inspiration. He denies fevers or chills. He has had cough without sputum production. Denies nausea vomiting diaphoresis. On exam vitals are stable. ENT is unremarkable. Heart and lungs are normal with no wheezing. Abdomen is soft and nontender. Extremities are unremarkable no swelling. Neurologically intact. ED course patient's troponin was mildly elevated as was his BMP. These are not new findings. His x-ray however showed some CHF with a mild pleural effusion which does seem to be potentially new. In addition the patient has elevated troponin. His EKG shows no acute ischemic changes. We will start him on IV Lasix as well as get him admitted to the hospitalist service for further evaluation treatment. Hemodynamically he remains stable in the ER. I agree with the resident physician assessment and plan.
[2017-01-01] MEDS ORDERED: Furosemide 40 MG/4 ML VIAL IVP ONE (14:07)
[2017-01-01] MEDS ORDERED: Nitroglycerin 1 INCH/GM PACKET TP ONE (14:07)
[2017-01-01] MEDS ORDERED: Ondansetron 4 MG/2 ML VIAL IVP PRN (16:27)
[2017-01-01] MEDS ORDERED: Naloxone 0.4 MG/ML INJ IVP PRN (16:27)
[2017-01-01] MEDS ORDERED: D5% in Water 1,000 ML IVC PRN (16:32)
[2017-01-01] MEDS ORDERED: *HR* Dextrose 50 % in Water (Syg) 50 ML SYRINGE IVP PRN (16:32)
[2017-01-01] MEDS ORDERED: Dextrose Gel 15 GM PO PRN ×2 (16:32)
--- NOTE | 2017-01-01 16:32 | Event Note ---
Date of Encounter: 01/01/17 Time of Encounter: 16:29 Patient examined with nurse practitioner. Acute congestive heart failure due to diastolic dysfunction. We will start the patient on Lasix 40 mg IV twice- daily. Serial troponin. Patient blood pressure and emergency room 160/110. Will give nitro patch
--- NOTE | 2017-01-01 16:47 | Internal Med History&Physical ---
Date of Encounter: 01/01/17 Time of Encounter: 14:00 Assessment and Plan (1) Acute exacerbation of CHF (congestive heart failure) Current visit: Yes Status: Acute Acute exacerbation of CHF. Pt. reports severe SOB and dyspnea over the past 24 hours. Denies hx of CHF or use of lasix. Reports weight gain primarily in abdomen with occasional pedal edema. Daily fluid restriction 1.5 L. DuoNebs every 6 scheduled. Lasix 40 mg IVP twice a day. Supplemental O2 with titration and SPO2 monitoring. Continuous cardiac telemetry. Cardiology consult ordered. Pt. is at high risk for further morbidity and cardiac/respiratory event based on current sx, hx, and risk factors. Inpatient. Qualifiers: Congestive heart failure type: unspecified congestive heart failure type Qualified Code(s): I50.9 - Heart failure, unspecified (2) Chest pain Current visit: Yes Status: Acute Acute chest pressure that pt. states becomes worse with deep breathing, most likely related to current acute exacerbation of CHF. Pt. denies previous cardiac history but does have risk factors of hyperlipidemia, hypertension, and diabetes. Initial troponin is 0.05 which is at pts. chronic baseline. Trend x2. Continuous cardiac telemetry. Cardiology consult ordered. Qualifiers: Chest pain type: chest pain on breathing Qualified Code(s): R07.1 - Chest pain on breathing; R07.81 - Pleurodynia (3) Dyspnea Current visit: Yes Status: Acute Acute dyspnea/SOB and orthopnea for the past day. Pt. reports he became SOB yesterday and concern is for possible PE versus acute exacerbation of CHF.D- dimer ordered stat. Will do VQ scan of chest based on results to r/o PE d/t pts. previous PRAVEENA. Supplemental O2 with titration and SPO2 monitoring. DuoNebs every 6 scheduled. Daily fluid restriction of 1.5L. 40 mg Lasix IVP twice a day. Monitor I&O and daily weight. Qualifiers: Dyspnea type: orthopnea Qualified Code(s): R06.01 - Orthopnea (4) HTN (hypertension) Current visit: Yes Status: Chronic Hx of chronic HTN. Monitor pt. and VS. Continue patient's Norvasc, lisinopril, and metoprolol. Qualifiers: Hypertension type: essential hypertension Qualified Code(s): I10 - Essential (primary) hypertension (5) HLD (hyperlipidemia) Current visit: Yes Status: Chronic Hx of chronic HLD. Lipid panel in a.m. labs. Continue Zocor. Qualifiers: Hyperlipidemia type: pure hypercholesterolemia Qualified Code(s): E78.00 - Pure hypercholesterolemia, unspecified; E78.0 - Pure hypercholesterolemia (6) GERD (gastroesophageal reflux disease) Current visit: Yes Status: Chronic Hx of chronic GERD. IVP Zofran 6 when necessary for nausea. IVP Protonix 40 mg daily. Qualifiers: Esophagitis presence: esophagitis presence not specified Qualified Code(s) : K21.9 - Gastro-esophageal reflux disease without esophagitis (7) Elevated troponin I level Current visit: Yes Status: Chronic Hx of chronically-elevated troponin level of 0.05 which is at patient's baseline. Will trend x2. Continuous cardiac telemetry. Cardiology consult ordered. (8) COPD (chronic obstructive pulmonary disease) Current visit: Yes Status: Chronic Hx of chronic COPD versus current acute exacerbation of CHF. Supplemental O2 w/ titration and SPO2 monitoring. DuoNebs Q6 scheduled. Qualifiers: COPD type: unspecified COPD Qualified Code(s): J44.9 - Chronic obstructive pulmonary disease, unspecified (9) Diabetes Current visit: Yes Status: Chronic Hx of chronic diabetes controlled by oral antihyperglycemic medications. Will hold oral medication and administer low-dose correction insulin sliding scale with hypoglycemic protocol. BG checks ACHS. A1c in a.m. labs. Qualifiers: Diabetes mellitus type: type 2 Diabetes mellitus complication status: with unspecified complications Diabetes mellitus termite exterminator insulin use: unspecified termite exterminator insulin use status Qualified Code(s): E11.8 - Type 2 diabetes mellitus with unspecified complications (10) DVT prophylaxis Current visit: Yes Status: Acute Heparin 5,000 units SQ Q8 for DVT prophylaxis. Internal Medicine - H&P: HPI Chief complaint: Chest pain/SOB Admitted From: Emergency Dept Plans for Post Hospital Care: Home History of present illness: Mr. Willis is a 76 year old male with medical history of COPD, arthritis, diabetes with oral control, GERD, bilateral glaucoma, HLD, and HTN presents from the ED with chief complaint of chest pressure which began yesterday and that he states is centralized in his chest that came on without exertion and did not radiate. He states he became diaphoretic but denies nausea and vomiting. He states he is very SOB and orthopneic since yesterday as well. Pt. denies recent illness, fever, chills, abdominal pain, headache, diarrhea, constipation, unusual bleeding, cough, chest congestion, changes in vision, lightheadedness, dizziness, pre-syncope, or syncope. Past Med Surg Social Fam HX - Past Medical History Source: patient, old records reviewed, obtained from family Medical history: arthritis, diabetes (Insulin controlled), GERD, glaucoma ( Bilateral), hyperlipidemia, hypertension, other Psychiatric history: anxiety - Past Surgical History Surgical History: cholecystectomy, orthopedic, other (2 back surgeries, bilateral hips, bilateral knee surgeries, right shoulder, left arm), other - Social History Smoking Status: Former smoker Packs per day: 1 PPD - Reports quitting 30 years ago Smokeless Tobacco Status: No Alcohol use: none Drug use: none, other Current living situation: Home, With Family Activity Level: Independent ambulation Recent Out of Country Travel Within the Last 8 Weeks: No Exposure or Possible Exposure to Illness During Travel: No - Family History Father Adopted: No Race: Family Member Ethnicity: Non- Living Status: Age at : 89 Cause of : Old age Hx Family Cardiac Disorders: Yes (HTN) Hx Family Endocrine Disorder: Yes (DM type 2) Hx Family Neuromuscular Disorders: No Hx Family Neurologic Disorders: No Hx Family HEENT Disorders: Yes (Glaucoma) Hx Family Autoimmune Disorders: No Mother Race: Family Member Ethnicity: Non- Living Status: Age at : 42 Cause of : Cancer Hx Family Cancer: Yes Brother Race: Family Member Ethnicity: Non- Living Status: Age at : 64 Cause of : HI Hx Family Cardiac Disorders: Yes (HI, HTN) Internal Medicine - H&P: Meds Aspirin Enteric Coated [Aspirin EC] 81 mg PO QAM 10/12/14 [History] Metoprolol [Lopressor] 100 mg PO BID 10/12/14 [History] Omeprazole [PriLOSEC] 20 mg PO QAM 10/12/14 [History] GlipiZIDE XL (24 HR) [Glucotrol XL] 10 mg PO BID 03/29/15 [History] Simvastatin [Zocor] 40 mg PO HS 03/29/15 [History] amLODIPine [Norvasc] 10 mg PO DAILY 05/27/15 [History] Multivit-Min/FA/Lycopen/Lutein [Men 50 Plus Multivitamin Tab] 1 tab PO DAILY [History] Thiamine Mononitrate [Vitamin B-1] 100 mg PO DAILY 04/27/16 [History] Lisinopril [Zestril] 40 mg PO DAILY 01/01/17 [History] 3 Allergy/AdvReac Type Severity Reaction Status Date / Time codeine AdvReac Mild Agitated Verified 12/15/16 10:09 All Systems PM: A 10-system review of systems was performed and is negative for pertinent findings except as documented above in the HPI. - Constitutional Constitutional: as per HPI, excessive sweating, no chills, no fever(s), no night sweats - EENT Eyes: no change in vision, no discharge, no pain, no photophobia Ears: no ear discharge, no ear pain, no tinnitus Nose, mouth and throat: no dysphagia, no nasal discharge, no neck pain, no sore throat - Breasts Breasts: as per HPI - Cardiovascular Cardiovascular ROS IM: as per HPI, chest pain (Pressure), diaphoresis, dyspnea, dyspnea on exertion, orthopnea, no lightheadedness, no palpitations, no syncope - Respiratory Respiratory: as per HPI, dyspnea, dyspnea on exertion - Gastrointestinal Gastrointestinal: no abdominal pain, no diarrhea, no hematemesis, no hematochezia, no melena, no nausea, no vomiting - Genitourinary Genitourinary ROS male: as per HPI - Musculoskeletal Musculoskeletal ROS IM: no numbness, no tingling - Integumentary Integumentary IM: no rash, no unusual bruising - Neurological Neurological ROS: no confusion, no convulsions, no focal weakness, no numbness, no tingling, no tremor(s) - Psychiatric Psychiatric: as per HPI - Endocrine Endocrine IM: as per HPI - Hematologic/Lymphatic Hematologic/Lymphatic: no easy bruising - Allergic/Immunologic Allergic/Immunologic: as per HPI - Constitutional Vitals: Temp Pulse Resp BP Pulse Ox 97.9 F 71 20 153/105 95 01/01/17 12:08 01/01/17 14:33 01/01/17 15:58 01/01/17 15:58 01/01/17 14:33 General appearance: Present: cooperative, mild distress (Respiratory), A&O X 3, pleasant, obese, answers questions appropriately - Head Head exam: Present: atraumatic, normocephalic - Eye Eye exam: Present: PERRL, conjuntiva pink, sclera anicteric Pupils: Present: PERRL - ENT ENT exam: Present: normal exam - Neck Neck exam general surgery: Present: normal inspection, supple, trachea midline. Absent: lymphadenopathy - Respiratory Respiratory exam: Present: accessory muscle use, decreased breath sounds, wheezes - Cardiovascular Cardiovascular exam: Present: RRR, +S1, +S2. Absent: diastolic murmur, gallop, rubs, systolic murmur - GI/Abdominal GI/Abdominal exam: Present: normal bowel sounds, soft, no peritoneal signs. Absent: distended, tenderness - Rectal Rectal exam: Present: deferred - Additional comments: exam deferred. - Extremities Exam Extremities exam: Present: pedal edema (Mild, non-pitting bilaterally), warm, radial pulses palpable and symmetrical - Back Exam Back exam: Present: normal inspection - Neurological Exam Neurological exam: Present: CN II-XII intact, oriented X3, no focal deficits. Absent: pronater drift, facial droop, speech deficit - Psychiatric Psychiatric exam: Present: normal affect, normal mood - Skin Skin exam: Present: dry, intact Internal Med - H&P Results - Labs CBC & Chem 7: 01/01/17 12:42 01/01/17 12:42 - EKG Data EKG shows normal: sinus rhythm - EKG Data Prior EKG available for review: yes EKG comments: 01/01/17 17:10 EKG dated 04/27/16 shows sinus tachycardia with first-degree AV block, moderate voltage criteria for LVH, intraventricular conduction delay. EKG dated 01/01/17 shows sinus rhythm with first-degree AV block, marked left axis deviation, pattern consistent with pulmonary disease, and left ventricular hypertrophy and ST-T change.
--- NOTE | 2017-01-01 17:39 | Electrocardiograph Report ---
[facility] Test Date: 2017-01-01 Pat Name: Manoj Willis Department: [id number] Room: [id number] Gender: M Produce Team Lead: : 1940 Requested By: Quinton Gómez Order Number: [id number] Reading MD: Rogelio Cade MD Measurements Intervals [place] Rate: 73 P: 75 [place]: 242 QRS: -37 QRSD: 118 T: -11 QT: 401 QTc: 427 Interpretive Statements SINUS RHYTHM WITH FIRST DEGREE AV BLOCK MARKED LEFT AXIS DEVIATION [QRS AXIS < -30] PATTERN CONSISTENT WITH PULMONARY DISEASE LEFT VENTRICULAR HYPERTROPHY AND ST-T CHANGE [VOLTAGE CRITERIA PLUS ST/T ABNORMALITY] Electronically Signed On 01-01-2017 17:37:50 EDT by Rogelio Cade MD
[2017-01-01] MEDS: Pantoprazole 40 MG VIAL IVP SCH (18:05)
[2017-01-01] MEDS: Insulin LISPRO 300 UNITS/3 ML VIAL SQ SCH ×2 (18:08→20:35)
[2017-01-01] MEDS ORDERED: Cyanocobalamin (B-12) 1,000 MCG/ML VIAL IM ONE (19:19)
[2017-01-01] MEDS: Metoprolol 100 MG TABLET PO SCH (20:41)
[2017-01-01] MEDS: Furosemide 40 MG/4 ML VIAL IVP SCH (20:42)
[2017-01-02 01:10] LABS: Basophils % 0.3 %; Eosinophils # 0.2 K/mcL (0.0-0.6); Hematocrit 33.5 % (37.5-50.1); Hemoglobin 10.2 g/dL (12.9-16.9); Immature Granulocytes % 0.3 % (0-4); Lymphocytes # 2.1 K/mcL (0.6-4.6); Lymphocytes % 22.1 %; Mean Corpuscular HGB Conc 30.4 g/dL (31.6-35.5); Mean Corpuscular Hemoglobin 24.7 pg (28.0-33.3); Mean Corpuscular Volume 81.1 fL (83.0-100.0); Monocytes # 0.8 K/mcL (0.0-1.3); Monocytes % 7.9 %; Neutrophils # 6.5 K/mcL (1.6-8.9); Platelet Count 304 K/mcL (140-400); Red Blood Count 4.13 M/mcL (4.19-5.50); Red Cell Distribution Width 20.4 % (11.5-14.5); Segmented Neutrophils % 67.4 %
[2017-01-02 01:16] LABS: Hemoglobin A1C 6.3 %
[2017-01-02 01:24] LABS: Albumin 3.5 g/dL (3.5-5.0); Albumin/Globulin Ratio 0.9 (1.1-2.2); Bilirubin,Total 0.4 mg/dL (0.2-1.2); Calcium 9.3 mg/dL (8.6-10.8); Chol/HDL Ratio 4.1 (0-4.9); Globulin 3.9 g/dL (2.4-3.5); Magnesium 1.4 mg/dL (1.6-2.6); Potassium 3.5 mEq/L (3.5-4.5); Total Protein 7.4 g/dL (6.0-8.3)
[2017-01-02 01:25] LABS: % Iron Saturation 10 % (20-55); Iron 37 mcg/dL (65-175); Transferrin 259 mg/dL (174-364)
[2017-01-02] MEDS: Nitroglycerin 0.2 MG PATCH.TD24 TD SCH (08:13)
[2017-01-02] MEDS: Acetaminophen 325 MG TABLET PO PRN ×2 (08:13→20:20)
[2017-01-02] MEDS: Aspirin Enteric Coated 81 MG Tablet PO SCH (08:14)
[2017-01-02] MEDS: amLODIPine 5 MG TABLET PO SCH (08:14)
[2017-01-02] MEDS: Thiamine (B-1) 100 MG TABLET PO SCH (08:14)
[2017-01-02] MEDS: Metoprolol 100 MG TABLET PO SCH ×2 (08:14→20:21)
[2017-01-02] MEDS: Pantoprazole 40 MG VIAL IVP SCH (08:15)
[2017-01-02] MEDS: Furosemide 40 MG/4 ML VIAL IVP SCH ×2 (08:15→20:21)
[2017-01-02] MEDS: Insulin LISPRO 300 UNITS/3 ML VIAL SQ SCH ×4 (08:16→21:31)
[2017-01-02] MEDS ORDERED: Lisinopril 20 MG TABLET PO SCH (09:00)
--- NOTE | 2017-01-02 10:33 | Cardiology Consult Note ---
Date of Encounter: 01/02/17 Time of Encounter: 10:00 Assessment and Plan (1) Diastolic congestive heart failure, NYHA class 2 Current Visit: Yes Status: Acute Per cardiology: -Admitted with shortness of breath, orthopnea. -BNP 543. -Chest x-ray with mild pulmonary vascular congestion. -On lasix 40mg IV BID. -Net negative 1400ml. -Weight today 101kg, weight 05/2016 110kg. -Report shortness of breath imrpoved today. -No edema noted, no crackles noted per auscultation. -Pateint reports he has not been compliant with fluid and sodium restriction. Patient reports he weighs himself daily "most of the time." -TTE 04/2016 LVEF 55%, moderate diastolic dysfunction. -CHF education reinforced. -Daily weight, strict i/os, fluid restriction, sodium restriction. -Will continue to monitor. Qualifiers: Congestive heart failure chronicity: acute on chronic Qualified Code(s): I50.33 - Acute on chronic diastolic (congestive) heart failure (2) Chest pressure Current Visit: Yes Status: Acute Per cardiology: -Had chest pressure with increased shortness of breath. -States chest pressure worsening with deep inspiration. -Denies exertion chest pressure. -Denies current chest pressure. -ECG with no acute ischemic changes. -Troponin mildly elevated. -Will continue to monitor. (3) Elevated troponin Current Visit: Yes Status: Acute Per cardiology: -Troponins 0.05, 0.05, 0.06. -Troponins flat and adynamic in the setting of CHF. -Denies current chest pain/pressure. -ECG with no acute ischemic changes. -TTE 04/2016 with LVEF preserved, all wall segments with normal motion. -Do not suspect NSTEMI, suspect demand ischemic related to above. No cardiac rehab warranted. -WIll check limited echo. -Further recommendations pending echo. (4) Renal insufficiency Current Visit: Yes Status: Chronic Per cardiology: -Creatinine on admssion 1.14, today 1.53. -Of note, Creatinine previously 2.25 04/2016. -Can consider nephrology consult -Management per primary service. Discussion w patient/family: The assessment and plan as outlined above was discussed with the patient who expressed understanding and agreement. All questions were answered. Thank you for involving us in the care of your patient. Please call with any questions. Discussed and reviewed with . History of Present Illness Consult date: 01/01/17 Requesting physician: Tod Murguia Consult reason: CHF Chief complaint: shortness of breath History of present illness: Mr. Willis is a 76 year old male with a relevant past medical history of HTN, hyperlipidemia, DM, COPD, sleep apnea. Patient presented to [facility] with complaints of increased shortness of breath and chest pressure. Patient states symptoms started yesterday. Patient reports he had to sit up to try and sleep. Patient reports chest pressure started when shortness of breath starting. Patient states chest pressure was worse with deep inspiration. Patient denies current chest pressure and states shortness of breath has improved from when he was admitted. Past Med Surg Social Fam HX - Past Medical History Attestation: Yes The following information was validated with the patient. Source: patient, old records reviewed Medical history: arthritis, CHF, diabetes (Insulin controlled), GERD, glaucoma ( Bilateral), hyperlipidemia, hypertension, other Psychiatric history: anxiety - Past Surgical History Surgical History: cholecystectomy, orthopedic, other (2 back surgeries, bilateral hips, bilateral knee surgeries, right shoulder, left arm), other - Social History Smoking Status: Former smoker Packs per day: 1 PPD - Reports quitting 30 years ago Smokeless Tobacco Status: No Alcohol use: none Drug use: none, other - Family History Mother Race: Family Member Ethnicity: Non- Living Status: Age at : 42 Cause of : Cancer Hx Family Cancer: Yes Brother Race: Family Member Ethnicity: Non- Living Status: Age at : 64 Cause of : LA Hx Family Cardiac Disorders: Yes (LA, HTN) Father Adopted: No Race: Family Member Ethnicity: Non- Living Status: Age at : 89 Cause of : Old age Hx Family Cardiac Disorders: Yes (HTN) Hx Family Respiratory Disorders: No Hx Family Cancer: No Hx Family GI Disorders: No Hx Family Endocrine Disorder: Yes (DM type 2) Hx Family Neuromuscular Disorders: No Hx Family Neurologic Disorders: No Hx Family HEENT Disorders: Yes (Glaucoma) Hx Family Autoimmune Disorders: No Medications and Allergies Aspirin Enteric Coated [Aspirin EC] 81 mg PO QAM 10/12/14 [History] Metoprolol [Lopressor] 100 mg PO BID 10/12/14 [History] Omeprazole [PriLOSEC] 20 mg PO QAM 10/12/14 [History] GlipiZIDE XL (24 HR) [Glucotrol XL] 10 mg PO BID 03/29/15 [History] Simvastatin [Zocor] 40 mg PO HS 03/29/15 [History] amLODIPine [Norvasc] 10 mg PO DAILY 05/27/15 [History] Multivit-Min/FA/Lycopen/Lutein [Men 50 Plus Multivitamin Tab] 1 tab PO DAILY [History] Thiamine Mononitrate [Vitamin B-1] 100 mg PO DAILY 04/27/16 [History] Lisinopril [Zestril] 40 mg PO DAILY 01/01/17 [History] 3 Allergy/AdvReac Type Severity Reaction Status Date / Time codeine AdvReac Mild Agitated Verified 12/15/16 10:09 All Systems Review: A 10-system review of systems was performed and is negative for pertinent findings except as documented above in the HPI. - Cardiovascular Cardiovascular: as per HPI, chest pain at rest, dyspnea at rest, dyspnea on exertion, orthopnea Physical Examination Vital Signs, Last 4 Hours Temp Pulse Resp BP Pulse Ox 01/02/17 07:15 97.9 F 84 16 129/87 96 General: Conversant, No Apparent Distress HEENT: Atraumatic, Normocephaly, Mucus Membranes Moist Neck: No JVD, Normal carotid pulses Cardiac: Reg Rate and Rhythm, Normal S1 and S2, No Murmur Lungs: Other (Lung sounds diminished throughout. ) Neuro: Alert and responsive, No focal deficits noted Abdomen: Soft, Non-Tender Skin: No rashes noted on visualized skin Musculoskeletal: No Chest Wall Tenderness Extremities: No Clubbing, No Cyanosis, No Edema, Normal Pulses Results 01/02/17 00:32 01/02/17 00:32 Lab Results Impressions Chest X-Ray 01/01/17 12:18 IMPRESSION: New prominence of the interstitial markings with mild pulmonary vascular congestion and small pleural effusions. New mild CHF is suspected. Marked widening of the right shoulder joint space involving the right total shoulder arthroplasty. Right shoulder radiographs are suggested for further evaluation. D/ / 01/01/2017 14:12:13 Memo Rios MD / bcarter Interpreting Provider: Memo Rios MD Chest CTA 01/01/17 18:36 IMPRESSION: No CT evidence pulmonary embolism. Small bilateral pleural effusions, greater on the right, with dependent lower lobe airspace disease, likely atelectasis. Pneumonia cannot be excluded. D/ / Abbey Lutz Cha, MD / Abbey Lutz Cha, MD Interpreting Provider: Abbey Lutz Cha, MD Active Medications Acetaminophen (Tylenol) 650 mg PO Q6HR PRN PRN Reason: Mild Pain (1-3) Stop: 07/03/17 16:28 Last Admin: 01/02/17 08:13 Dose: 650 mg Amlodipine Besylate (Norvasc) 10 mg PO DAILY BOZENA PRN Reason: Protocol Stop: 07/04/17 09:01 Last Admin: 01/02/17 08:14 Dose: 10 mg Aspirin (Aspirin Ec) 81 mg PO QAM [facility] Stop: 07/04/17 09:01 Last Admin: 01/02/17 08:14 Dose: 81 mg Dextrose/Water (Dextrose 50% (Syg)) 25 ml IVP AD PRN PRN Reason: Hypoglycemia Stop: 07/03/17 16:33 Furosemide (Lasix) 40 mg IVP BID [facility] Stop: 07/03/17 21:01 Last Admin: 01/02/17 08:15 Dose: 40 mg Glucagon (Glucagen) 1 mg IM ONCE PRN PRN Reason: Hypoglycemia Stop: 07/03/17 16:33 Glucose (Gluctose) 15 gm PO ONCE PRN PRN Reason: Hypoglycemia Stop: 07/03/17 16:33 Glucose (Gluctose) 30 gm PO ONCE PRN PRN Reason: Hypoglycemia Stop: 07/03/17 16:33 Heparin Sodium (Porcine) (Heparin) 5,000 unit SQ Q8HCO [facility] Stop: 07/04/17 22:01 Hydralazine HCl (Hydralazine) 10 mg IVP Q6HR PRN PRN Reason: Hypertension Stop: 07/04/17 00:27 Last Admin: 01/02/17 00:54 Dose: 10 mg Dextrose (Dextrose 5%) 1,000 mls @ 100 mls/hr IVC .Q10H PRN PRN Reason: HYPOGLYCEMIA Stop: 07/03/17 16:33 Insulin Human Lispro (Humalog) 0 units SQ TIDAC BOZENA PRN Reason: Protocol Stop: 07/03/17 16:46 Last Admin: 01/02/17 08:16 Dose: Not Given Insulin Human Lispro (Humalog) 0 units SQ HS BOZENA PRN Reason: Protocol Stop: 07/03/17 21:01 Last Admin: 01/01/17 20:35 Dose: Not Given Lisinopril (Zestril) 40 mg PO DAILY [facility] Stop: 07/04/17 09:01 Last Admin: 01/02/17 08:14 Dose: 40 mg Metoprolol Tartrate (Lopressor) 100 mg PO BID [facility] Stop: 07/03/17 21:01 Last Admin: 01/02/17 08:14 Dose: 100 mg Naloxone HCl (Narcan) 0.4 mg IVP Q2MIN PRN PRN Reason: Opioid Reversal Stop: 07/03/17 16:28 Nitroglycerin (Nitroglycerin) 0.2 mg TD 0730 [facility] Stop: 07/04/17 07:31 Last Admin: 01/02/17 08:13 Dose: 0.2 mg Ondansetron HCl (Zofran) 4 mg IVP Q8HR PRN PRN Reason: Nausea And Vomiting Stop: 07/03/17 16:28 Pantoprazole Sodium (Protonix) 40 mg IVP DAILY [facility] Stop: 07/03/17 16:31 Last Admin: 01/02/17 08:15 Dose: 40 mg Simvastatin (Zocor) 40 mg PO HS BOZENA PRN Reason: Protocol Stop: 07/03/17 21:01 Last Admin: 01/01/17 20:41 Dose: 40 mg Thiamine HCl (Vitamin B-1) 100 mg PO DAILY [facility] Stop: 07/04/17 09:01 Last Admin: 01/02/17 08:14 Dose: 100 mg Zolpidem Tartrate (Ambien) 5 mg PO HS PRN; Protocol PRN Reason: Insomnia Stop: 07/03/17 18:39 Last Admin: 01/01/17 20:41 Dose: 5 mg Laboratory Tests 05/01/16 09/29/16 11/13/16 08:15 11:08 11:05 Hgb Creatinine 2.25 H 1.29 H 1.33 H Troponin I B-Natriuretic Peptide 01/01/17 01/01/17 01/01/17 12:42 12:42 12:42 Hgb Creatinine 1.14 Troponin I 0.05 H* B-Natriuretic Peptide 543 H 01/01/17 01/02/17 01/02/17 18:46 00:32 00:32 Hgb 10.2 L Creatinine Troponin I 0.05 H* 0.06 H* B-Natriuretic Peptide 01/02/17 00:32 Hgb Creatinine 1.53 H Troponin I B-Natriuretic Peptide - Imaging and Cardiology Chest Xray: report reviewed Echo: pending, report reviewed - EKG Interpretation EKG results cardiology: personally reviewed (ECG with SR, HR 73. First degree block.), other (Telemetry reviewed with average HR previous 12 hours noted to be 83, sinus rhythm. PVCs and PACs noted.) Consult Discharge Plan - Plan Referrals: Desi Valdez, [employer] [Primary Care Provider] -
--- NOTE | 2017-01-02 10:42 | Internal Med Progress Note ---
Addendum entered and electronically signed by Sarah Reid DO 01/02/17 14:21: (8) Iron deficiency anemia Current Visit: No Status: Chronic Assessment and plan: - Microcytic hypochromic anemia with low iron and low % saturation. - Normal EGD on 12/15/16. Colonoscopy on 12/15/16 found multiple non-bleeding polyps. - Start PO iron supplement. - Continue to monitor. Original Note: <Sarah Reid - Last Filed: 01/02/17 13:50> Date of Encounter: 01/02/17 Time of Encounter: 08:15 - Assessment and plan (1) Acute exacerbation of CHF (congestive heart failure) Current Visit: Yes Status: Acute Assessment and plan: - Chest tightness and shortness of breath on initial presentation with BNP 543. - Echocardiogram from 05/05/16 showed LVEF 55% with moderate LV diastolic dysfunction. - CXR on admission showed new prominence of the interstitial markings with mild pulmonary vascular congestion and small pleural effusions, suspicious for CHF. - Likely secondary to non-compliance given patient reports not taking water pills prior to this hospitalization. - Clinically improves as patient reports significant decrease of dyspnea and chest tightness today. - Continue Lasix 40 mg IV BID. - Strict I/O and daily weight. Net negative 1.4 L so far. - Fluid restriction of 1.5 L - As recommended by community associate, will obtain limited echocardiogram as further work-up. - Appreciate cardiology recommendation and assistance on patient care. Qualifiers: Congestive heart failure type: diastolic Qualified Code(s): I50.33 - Acute on chronic diastolic (congestive) heart failure (2) Acute kidney injury Current Visit: No Status: Acute Assessment and plan: - SCr increased from 1.14 on admission to 1.53 today. - Likely secondary to contrast use from chest CTA on 01/01/17. - Avoid nephrotoxin such as NSAIDs. - Continue to monitor renal function and electrolytes closely. (3) Elevated troponin Current Visit: Yes Status: Acute Assessment and plan: - Mildly elevated troponin (0.05, 0.05, 0.06). - Cardiology does not suspect NSTEMI. More likely demand ischemic in the setting of diastolic CHF. - No significant ischemic change on EKG and patient denies current chest pain/ pressure. - Will obtain limited echocardiogram as further work-up (4) Diabetes Current Visit: Yes Status: Chronic Assessment and plan: - Insulin sliding scale with frequent glucose monitoring. 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 - Continue current antihypertensive regimen. Qualifiers: Hypertension type: essential hypertension Qualified Code(s): I10 - Essential (primary) hypertension (6) HLD (hyperlipidemia) Current Visit: Yes Status: Chronic Assessment and plan: - Continue Zocor. Qualifiers: Hyperlipidemia type: pure hypercholesterolemia Qualified Code(s): E78.00 - Pure hypercholesterolemia, unspecified (7) DVT prophylaxis Current Visit: Yes Status: Acute Assessment and plan: - Continue SQ heparin. - Subjective Interval history: Patient was seen and examined this morning. Patient reports breathing improves and chest tightness almost resolves except during deep inhalation. Cough is mostly non-productive. Patient denies fever, chills, lightheadedness/dizziness, nausea, vomiting, diarrhea, abdominal pain. Patient states he is not on any water pills prior to this admission. - Constitutional Vitals: Temp Pulse Resp BP Pulse Ox 97.9 F 84 16 129/87 96 01/02/17 07:15 01/02/17 07:15 01/02/17 07:15 01/02/17 07:15 01/02/17 07:15 General appearance: Present: cooperative, A&O X 3, pleasant, no acute distress, answers questions appropriately - Head Head exam: Present: atraumatic, normocephalic - Eye Eye exam: Present: EOMI, conjuntiva pink, sclera anicteric - Neck Neck exam general surgery: Present: supple, trachea midline. Absent: lymphadenopathy - Respiratory Respiratory exam: Present: decreased breath sounds. Absent: accessory muscle use, rales, rhonchi, wheezes - Cardiovascular Cardiovascular exam: Present: RRR, +S1, +S2. Absent: diastolic murmur, gallop, rubs, systolic murmur - GI/Abdominal GI/Abdominal exam: Present: normal bowel sounds, soft, no peritoneal signs. Absent: distended, tenderness - Extremities Exam Extremities exam: Present: pedal edema (Mild), warm. Absent: calf tenderness, cyanotic - Neurological Exam Neurological exam: Present: CN II-XII intact, no focal deficits. Absent: facial droop, speech deficit - Skin Skin exam: Present: dry, intact, warm Internal Medicine: Result - Labs CBC & Chem 7: 01/02/17 00:32 01/02/17 00:32 Labs: Short CBC 01/02/17 Range/Units 00:32 WBC 9.6 (4.3-11.1) K/mcL Hgb 10.2 L (12.9-16.9) g/dL Hct 33.5 L (37.5-50.1) % Plt Count 304 (140-400) K/mcL Neutrophils # 6.5 (1.6-8.9) K/mcL BMP 01/02/17 00:32 Sodium 141 Potassium 3.5 D Chloride 102 Carbon Dioxide 27 BUN 19 Creatinine 1.53 H Glucose 84 Calcium 9.3 Cardiac Enzymes 01/01/17 01/02/17 Range/Units 18:46 00:32 Troponin I 0.05 H* 0.06 H* (0-0.03) ng/mL Liver Function 01/02/17 Range/Units 00:32 Total Bilirubin 0.4 (0.2-1.2) mg/dL AST 20 (5-34) Units/L ALT 13 (0-55) Units/L Alkaline Phosphatase 80 (38-126) Units/L Albumin 3.5 (3.5-5.0) g/dL - ABG Interpretation ABG results: PT/INR, D-dimer PT 11.2 Seconds (9.4-12.1) 01/01/17 12:42 D-Dimer 2490 ng/mLFEU (0-500) H 01/01/17 16:55 - Impressions Impressions Chest CTA 01/01/17 18:36 IMPRESSION: No CT evidence pulmonary embolism. Small bilateral pleural effusions, greater on the right, with dependent lower lobe airspace disease, likely atelectasis. Pneumonia cannot be excluded. D/ / Abbey Lutz Cha, MD / Abbey Lutz Cha, MD Interpreting Provider: Abbey Lutz Cha, MD Consult Discharge Plan - Plan Referrals: Desi Valdez, [employer] [Primary Care Provider] - <VamshiRik Campbell - Last Filed: 01/02/17 16:42> Date of Encounter: 01/02/17 - Assessment and plan (1) Acute respiratory failure with hypoxia Current Visit: Yes Status: Acute (2) Acute exacerbation of CHF (congestive heart failure) Current Visit: Yes Status: Acute Qualifiers: Congestive heart failure type: diastolic Qualified Code(s): I50.33 - Acute on chronic diastolic (congestive) heart failure (3) Diabetes Current Visit: Yes Status: Chronic Qualifiers: Diabetes mellitus type: type 2 Diabetes mellitus complication status: without complication 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 Qualified Code(s): E11.9 - Type 2 diabetes mellitus without complications (4) HTN (hypertension) Current Visit: Yes Status: Chronic Qualifiers: Hypertension type: essential hypertension Qualified Code(s): I10 - Essential (primary) hypertension (5) HLD (hyperlipidemia) Current Visit: Yes Status: Chronic Qualifiers: Hyperlipidemia type: mixed hyperlipidemia Qualified Code(s): E78.2 - Mixed hyperlipidemia (6) Acute kidney injury Current Visit: No Status: Acute - Constitutional Vitals: Temp Pulse Resp BP Pulse Ox 98.6 F 88 16 139/79 93 01/02/17 15:44 01/02/17 15:44 01/02/17 15:44 01/02/17 15:44 01/02/17 15:44 Internal Medicine: Result - Labs CBC & Chem 7: 01/02/17 00:32 01/02/17 00:32 Labs: Short CBC 01/02/17 Range/Units 00:32 WBC 9.6 (4.3-11.1) K/mcL Hgb 10.2 L (12.9-16.9) g/dL Hct 33.5 L (37.5-50.1) % Plt Count 304 (140-400) K/mcL Neutrophils # 6.5 (1.6-8.9) K/mcL BMP 01/02/17 00:32 Sodium 141 Potassium 3.5 D Chloride 102 Carbon Dioxide 27 BUN 19 Creatinine 1.53 H Glucose 84 Calcium 9.3 Cardiac Enzymes 01/01/17 01/02/17 Range/Units 18:46 00:32 Troponin I 0.05 H* 0.06 H* (0-0.03) ng/mL Liver Function 01/02/17 Range/Units 00:32 Total Bilirubin 0.4 (0.2-1.2) mg/dL AST 20 (5-34) Units/L ALT 13 (0-55) Units/L Alkaline Phosphatase 80 (38-126) Units/L Albumin 3.5 (3.5-5.0) g/dL - ABG Interpretation ABG results: PT/INR, D-dimer PT 11.2 Seconds (9.4-12.1) 01/01/17 12:42 D-Dimer 2490 ng/mLFEU (0-500) H 01/01/17 16:55 - Impressions Impressions Chest CTA 01/01/17 18:36 IMPRESSION: No CT evidence pulmonary embolism. Small bilateral pleural effusions, greater on the right, with dependent lower lobe airspace disease, likely atelectasis. Pneumonia cannot be excluded. D/ / Abbey Lutz Cha, MD / Abbey Lutz Cha, MD Interpreting Provider: Abbey Lutz Cha, MD - Attending Attestation I examined this patient and my medical decision-making was reviewed with the Resident Physician on 01/02/17. I agree with the documented findings, disposition and treatment plan as described except to the extent set forth below. Mr Willis is currently admitted for acute exac CHF. He remains moderate to high risk due to potential for worsening resp and cardiac status. Mr Willis feels OK. He is breathing somewhat better than last evening. He urinated a lot during the night. No fever or chills. No cough. No GI issues. Has not urinated as much this AM. Exam Alert. Comfortable Heart not tachy Mucus membranes dry Lungs with some rales L greater than R Abd soft Some edema present I/P 1. Hypoxic resp failure 2. CHF Further diagnoses and plan as above.
[2017-01-02] MEDS ORDERED: Magnesium Oxide 400 MG TABLET PO SCH (14:15)
[2017-01-02] MEDS: *HR* Heparin 5,000 UNIT/ML VIAL SQ SCH (20:21)
[2017-01-03 03:26] LABS: Basophils % 0.3 %; Eosinophils # 0.2 K/mcL (0.0-0.6); Eosinophils % 1.9 %; Hematocrit 35.1 % (37.5-50.1); Hemoglobin 10.9 g/dL (12.9-16.9); Immature Granulocytes % 0.2 % (0-4); Lymphocytes # 2.2 K/mcL (0.6-4.6); Lymphocytes % 22.9 %; Mean Corpuscular HGB Conc 31.1 g/dL (31.6-35.5); Mean Corpuscular Hemoglobin 25.1 pg (28.0-33.3); Mean Corpuscular Volume 80.7 fL (83.0-100.0); Mean Platelet Volume 8.9 fL (9.4-12.4); Monocytes # 0.9 K/mcL (0.0-1.3); Monocytes % 9.9 %; Neutrophils # 6.2 K/mcL (1.6-8.9); Platelet Count 317 K/mcL (140-400); Red Blood Count 4.35 M/mcL (4.19-5.50); Red Cell Distribution Width 20.1 % (11.5-14.5); Segmented Neutrophils % 64.8 %
[2017-01-03 03:39] LABS: Albumin 3.4 g/dL (3.5-5.0); Albumin/Globulin Ratio 0.8 (1.1-2.2); Bilirubin,Total 0.5 mg/dL (0.2-1.2); Globulin 4.3 g/dL (2.4-3.5); Potassium 3.2 mEq/L (3.5-4.5); Total Protein 7.7 g/dL (6.0-8.3)
[2017-01-03] MEDS: *HR* Heparin 5,000 UNIT/ML VIAL SQ SCH ×3 (05:28→22:36)
[2017-01-03] MEDS ORDERED: Magnesium Sulfate 1 GM in 0.9 % Sodium Chloride 50 ML IVPB ONE (08:00)
[2017-01-03] MEDS: Insulin LISPRO 300 UNITS/3 ML VIAL SQ SCH ×4 (08:29→22:31)
[2017-01-03] MEDS: Nitroglycerin 0.2 MG PATCH.TD24 TD SCH (08:31)
[2017-01-03] MEDS: Metoprolol 100 MG TABLET PO SCH ×2 (08:37→22:35)
[2017-01-03] MEDS: Thiamine (B-1) 100 MG TABLET PO SCH (08:37)
[2017-01-03] MEDS: Pantoprazole 40 MG VIAL IVP SCH (08:38)
[2017-01-03] MEDS: amLODIPine 5 MG TABLET PO SCH (08:38)
[2017-01-03] MEDS: Aspirin Enteric Coated 81 MG Tablet PO SCH (08:38)
--- NOTE | 2017-01-03 09:50 | Cardiology Progress Note ---
Date of Encounter: 01/03/17 Time of Encounter: 08:30 Assessment and Plan (1) Diastolic congestive heart failure, NYHA class 2 Current Visit: Yes Status: Acute Per cardiology: -Admitted with shortness of breath, orthopnea. -BNP 543. -Chest x-ray with mild pulmonary vascular congestion. -On lasix 40mg IV BID. -Net negative 400ml. -Weight today 97kg, weight 05/2016 110kg. -Report shortness of breath imrpoved today. -No edema noted, no crackles noted per auscultation. -Pateint reports he has not been compliant with fluid and sodium restriction. Patient reports he weighs himself daily "most of the time." -TTE 04/2016 LVEF 55%, moderate diastolic dysfunction. -CHF education reinforced. -Daily weight, strict i/os, fluid restriction, sodium restriction. -Will stop lasix for now due to increase in creatinine to 1.75. -Will continue to monitor. Qualifiers: Congestive heart failure chronicity: acute on chronic Qualified Code(s): I50.33 - Acute on chronic diastolic (congestive) heart failure (2) Chest pressure Current Visit: Yes Status: Acute Per cardiology: -Had chest pressure with increased shortness of breath. -States chest pressure worsening with deep inspiration. -Denies exertion chest pressure. -Denies current chest pressure. -ECG with no acute ischemic changes. -Troponin mildly elevated. -Will make NPO after midnight. -PLan for non-excercise stress in am. (3) Elevated troponin Current Visit: Yes Status: Acute Per cardiology: -Troponins 0.05, 0.05, 0.06. -Troponins flat and adynamic in the setting of CHF. -Denies current chest pain/pressure. -ECG with no acute ischemic changes. -TTE 04/2016 with LVEF preserved, all wall segments with normal motion. -Echo pending. -Do not suspect NSTEMI, suspect demand ischemic related to above. No cardiac rehab warranted. -Plan for stress in am. -Further recommendations pending echo and stress. (4) Renal insufficiency Current Visit: Yes Status: Chronic Per cardiology: -Creatinine on admssion 1.14, today 1.75. -Of note, Creatinine previously 2.25 04/2016. -Lasic stopped and lisinopril held. -Can consider nephrology consult -Management per primary service. Discussion w patient/family: The assessment and plan as outlined above was discussed with the patient who expressed understanding and agreement. All questions were answered. Thank you for involving us in the care of your patient. Please call with any questions. Discussed and reviewed with . Subjective Principal diagnosis: diastolic CHF Interval history: Patient states breathing much improved today. Denies chest pain. Objective Vital Signs, Last 4 Hours Temp Pulse Resp BP Pulse Ox 01/03/17 07:19 98.1 F 87 16 135/69 97 General: Conversant, No Apparent Distress HEENT: Atraumatic, Normocephaly, Mucus Membranes Moist Neck: No JVD, Normal carotid pulses Cardiac: Reg Rate and Rhythm, Normal S1 and S2, No Murmur Lungs: Normal Breath Sounds, No Wheeze, Rales, Rhonchi Neuro: Alert and responsive, No focal deficits noted Abdomen: Soft, Non-Tender Skin: No rashes noted on visualized skin Musculoskeletal: No Chest Wall Tenderness Extremities: No Clubbing, No Cyanosis, No Edema, Normal Pulses Results 01/03/17 02:55 01/03/17 02:55 Lab Results Active Medications Acetaminophen (Tylenol) 650 mg PO Q6HR PRN PRN Reason: Mild Pain (1-3) Stop: 07/03/17 16:28 Last Admin: 01/02/17 20:20 Dose: 650 mg Amlodipine Besylate (Norvasc) 10 mg PO DAILY [facility] PRN Reason: Protocol Stop: 07/04/17 09:01 Last Admin: 01/03/17 08:38 Dose: 10 mg Aspirin (Aspirin Ec) [facility] [place] Stop: 07/04/17 09:01 Last Admin: 01/03/17 08:38 Dose: 81 mg Dextrose/Water (Dextrose 50% (Syg)) 25 ml IVP AD PRN PRN Reason: Hypoglycemia Stop: 07/03/17 16:33 Ferrous Sulfate (Ferrous Sulfate) 325 mg PO BIDWM [facility] Stop: 07/04/17 17:01 Last Admin: 01/03/17 08:32 Dose: 325 mg Glucagon (Glucagen) 1 mg IM ONCE PRN PRN Reason: Hypoglycemia Stop: 07/03/17 16:33 Glucose (Gluctose) 15 gm PO ONCE PRN PRN Reason: Hypoglycemia Stop: 07/03/17 16:33 Glucose (Gluctose) 30 gm PO ONCE PRN PRN Reason: Hypoglycemia Stop: 07/03/17 16:33 Heparin Sodium (Porcine) (Heparin) 5,000 unit SQ Q8HCO [facility] Stop: 07/04/17 22:01 Last Admin: 01/03/17 05:28 Dose: 5,000 unit Hydralazine HCl (Hydralazine) 10 mg IVP Q6HR PRN PRN Reason: Hypertension Stop: 07/04/17 00:27 Last Admin: 01/02/17 00:54 Dose: 10 mg Dextrose (Dextrose 5%) 1,000 mls @ 100 mls/hr IVC .Q10H PRN PRN Reason: HYPOGLYCEMIA Stop: 07/03/17 16:33 Insulin Human Lispro (Humalog) 0 units SQ TIDAC [facility] PRN Reason: Protocol Stop: 07/03/17 16:46 Last Admin: 01/03/17 08:29 Dose: 4 units Insulin Human Lispro (Humalog) 0 units SQ HS [facility] PRN Reason: Protocol Stop: 07/03/17 21:01 Last Admin: 01/02/17 21:31 Dose: Not Given Lisinopril (Zestril) 40 mg PO DAILY [facility] Stop: 07/04/17 09:01 Last Admin: 01/02/17 08:14 Dose: 40 mg Metoprolol Tartrate (Lopressor) 100 mg PO BID [facility] Stop: 07/03/17 21:01 Last Admin: 01/03/17 08:37 Dose: 100 mg Naloxone HCl (Narcan) 0.4 mg IVP Q2MIN PRN PRN Reason: Opioid Reversal Stop: 07/03/17 16:28 Ondansetron HCl (Zofran) 4 mg IVP Q8HR PRN PRN Reason: Nausea And Vomiting Stop: 07/03/17 16:28 Pantoprazole Sodium (Protonix) 40 mg IVP DAILY [facility] Stop: 07/03/17 16:31 Last Admin: 01/03/17 08:38 Dose: 40 mg Simvastatin (Zocor) 40 mg PO HS [facility] PRN Reason: Protocol Stop: 07/03/17 21:01 Last Admin: 01/02/17 20:21 Dose: 40 mg Thiamine HCl (Vitamin B-1) 100 mg PO DAILY [facility] Stop: 07/04/17 09:01 Last Admin: 01/03/17 08:37 Dose: 100 mg Zolpidem Tartrate (Ambien) 5 mg PO HS PRN; Protocol PRN Reason: Insomnia Stop: 07/03/17 18:39 Last Admin: 01/01/17 20:41 Dose: 5 mg Laboratory Tests 01/01/17 01/02/17 01/03/17 12:42 00:32 02:55 Hgb 10.9 L Creatinine 1.14 1.53 H 01/03/17 02:55 Hgb Creatinine 1.75 H - Imaging and Cardiology Chest Xray: report reviewed Echo: pending, report reviewed - EKG Interpretation EKG results cardiology: other (Telemetry reviewed with average HR previous 12 hours noted to be 83, sinus rhythm. PVCs and PACs noted.) Consult Discharge Plan - Plan Referrals: Desi Valdez, [employer] [Primary Care Provider] -
--- NOTE | 2017-01-03 09:59 | Internal Med Progress Note ---
<Sarah Reid - Last Filed: 01/03/17 12:19> Date of Encounter: 01/03/17 Time of Encounter: 09:30 - Assessment and plan (1) Acute exacerbation of CHF (congestive heart failure) Current Visit: Yes Status: Acute Assessment and plan: - Chest tightness and shortness of breath on initial presentation with BNP 543. - Echocardiogram from 05/05/16 showed LVEF 55% with moderate LV diastolic dysfunction. - CXR on admission showed new prominence of the interstitial markings with mild pulmonary vascular congestion and small pleural effusions, suspicious for CHF. - Likely secondary to non-compliance given patient reports not taking water pills prior to this hospitalization. - Limited echocardiogram on 01/02/17 found LVEF 55% with moderate concentric LV hypertrophy. - Will obtain nuclear stress test as recommended by cardiology for further work- up. - Clinically improves as patient reports no significant dyspnea or chest tightness today. - Hold Lasix for now given worsening renal function. - Strict I/O and daily weight. Net negative 608 mL so far. - Fluid restriction of 1.5 L - Appreciate cardiology recommendation and assistance on patient care. Qualifiers: Congestive heart failure type: diastolic Qualified Code(s): I50.33 - Acute on chronic diastolic (congestive) heart failure (2) Acute kidney injury Current Visit: No Status: Acute Assessment and plan: - SCr increased from 1.14 on admission to 1.75 today. - Likely secondary to contrast use from chest CTA on 01/01/17. - Hold Lasix for now. - Avoid nephrotoxin such as NSAIDs. - Continue to monitor renal function and electrolytes closely. (3) Elevated troponin Current Visit: Yes Status: Acute Assessment and plan: - Mildly elevated troponin (0.05, 0.05, 0.06). - Cardiology does not suspect NSTEMI. More likely demand ischemic in the setting of diastolic CHF. - No significant ischemic change on EKG and patient denies current chest pain/ pressure. - Limited echocardiogram on 01/02/17 found LVEF 55% with moderate concentric LV hypertrophy. - Will obtain nuclear stress test as recommended by cardiology for further work- up. (4) Hypokalemia Current Visit: Yes Status: Acute Assessment and plan: - K 3.2 today. - Replace with 40 meq of PO KCl. - Continue to monitor. (5) Hypomagnesemia Current Visit: No Status: Acute Assessment and plan: - Mg 1.3 today. - Replace with 1 gram of MgSO4 IV. - Continue to monitor. (6) Diabetes Current Visit: Yes Status: Chronic Assessment and plan: - Insulin sliding scale with frequent glucose monitoring. Qualifiers: Diabetes mellitus type: type 2 Diabetes mellitus complication status: without complication Diabetes mellitus termite control representative insulin use: without fci use Qualified Code(s): E11.9 - Type 2 diabetes mellitus without complications (7) HTN (hypertension) Current Visit: Yes Status: Chronic Assessment and plan: - BP within normal range. - Continue current antihypertensive regimen. Qualifiers: Hypertension type: essential hypertension Qualified Code(s): I10 - Essential (primary) hypertension (8) HLD (hyperlipidemia) Current Visit: Yes Status: Chronic Assessment and plan: - Continue Zocor. Qualifiers: Hyperlipidemia type: mixed hyperlipidemia Qualified Code(s): E78.2 - Mixed hyperlipidemia (9) Iron deficiency anemia Current Visit: Yes Status: Chronic Assessment and plan: - Microcytic hypochromic anemia with low iron and low % saturation. - Normal EGD on 12/15/16. Colonoscopy on 12/15/16 found multiple non-bleeding polyps. - Continue PO iron supplement. - Continue to monitor. Qualifiers: Iron deficiency anemia type: unspecified iron deficiency Qualified Code(s) : D50.9 - Iron deficiency anemia, unspecified (10) DVT prophylaxis Current Visit: Yes Status: Acute Assessment and plan: - Continue SQ heparin. - Subjective Interval history: Patient was seen and examined this morning. Patient reports doing well with no dyspnea or chest tightness. Patient denies fever, chills, lightheadedness/ dizziness, nausea, vomiting, abdominal pain. Patient thinks he is ready to go home and likes to go home. Patient is strongly recommended to stay overnight given his worsening renal function and need of stress test. - Constitutional Vitals: Temp Pulse Resp BP Pulse Ox 98.1 F 87 16 135/69 97 01/03/17 07:19 01/03/17 07:19 01/03/17 07:19 01/03/17 07:19 01/03/17 07:19 General appearance: Present: cooperative, A&O X 3, pleasant, no acute distress, answers questions appropriately - Head Head exam: Present: atraumatic, normocephalic - Eye Eye exam: Present: EOMI, conjuntiva pink, sclera anicteric - Neck Neck exam general surgery: Present: supple, trachea midline. Absent: lymphadenopathy - Respiratory Respiratory exam: Present: CTAB. Absent: accessory muscle use, rales, rhonchi, wheezes - Cardiovascular Cardiovascular exam: Present: RRR, +S1, +S2. Absent: diastolic murmur, gallop, rubs, systolic murmur - GI/Abdominal GI/Abdominal exam: Present: normal bowel sounds, soft, no peritoneal signs. Absent: distended, tenderness - Extremities Exam Extremities exam: Present: warm, radial pulses palpable and symmetrical. Absent : cyanotic, pedal edema - Neurological Exam Neurological exam: Present: oriented X3, no focal deficits. Absent: facial droop, speech deficit - Skin Skin exam: Present: dry, intact, warm Internal Medicine: Result - Labs CBC & Chem 7: 01/03/17 02:55 01/03/17 02:55 Labs: Short CBC 01/03/17 Range/Units 02:55 WBC 9.5 (4.3-11.1) K/mcL Hgb 10.9 L (12.9-16.9) g/dL Hct 35.1 L (37.5-50.1) % Plt Count 317 (140-400) K/mcL Neutrophils # 6.2 (1.6-8.9) K/mcL BMP 01/03/17 02:55 Sodium 140 Potassium 3.2 L Chloride 101 Carbon Dioxide 28 BUN 24 Creatinine 1.75 H Glucose 169 H Calcium 9.0 Liver Function 01/03/17 Range/Units 02:55 Total Bilirubin 0.5 (0.2-1.2) mg/dL AST 17 (5-34) Units/L ALT 13 (0-55) Units/L Alkaline Phosphatase 84 (38-126) Units/L Albumin 3.4 L (3.5-5.0) g/dL - ABG Interpretation ABG results: PT/INR, D-dimer PT 11.2 Seconds (9.4-12.1) 01/01/17 12:42 D-Dimer 2490 ng/mLFEU (0-500) H 01/01/17 16:55 Consult Discharge Plan - Plan Referrals: Desi Valdez, [employer] [Primary Care Provider] - <Rik Bonds - Last Filed: 01/03/17 14:35> Date of Encounter: 01/03/17 - Assessment and plan (1) Acute kidney injury Current Visit: No Status: Acute (2) Acute respiratory failure with hypoxia Current Visit: Yes Status: Acute (3) Acute exacerbation of CHF (congestive heart failure) Current Visit: Yes Status: Acute Qualifiers: Congestive heart failure type: diastolic Qualified Code(s): I50.33 - Acute on chronic diastolic (congestive) heart failure (4) Diabetes Current Visit: Yes Status: Chronic Qualifiers: Diabetes mellitus type: type 2 Diabetes mellitus complication status: without complication Diabetes mellitus termite control representative insulin use: without termite control representative use Qualified Code(s): E11.9 - Type 2 diabetes mellitus without complications (5) HTN (hypertension) Current Visit: Yes Status: Chronic Qualifiers: Hypertension type: essential hypertension Qualified Code(s): I10 - Essential (primary) hypertension (6) HLD (hyperlipidemia) Current Visit: Yes Status: Chronic Qualifiers: Hyperlipidemia type: mixed hyperlipidemia Qualified Code(s): E78.2 - Mixed hyperlipidemia - Constitutional Vitals: Temp Pulse Resp BP Pulse Ox 98.1 F 87 16 135/69 97 01/03/17 07:19 01/03/17 07:19 01/03/17 07:19 01/03/17 07:19 01/03/17 07:19 Internal Medicine: Result - Labs CBC & Chem 7: 01/03/17 02:55 01/03/17 02:55 Labs: Short CBC 01/03/17 Range/Units 02:55 WBC 9.5 (4.3-11.1) K/mcL Hgb 10.9 L (12.9-16.9) g/dL Hct 35.1 L (37.5-50.1) % Plt Count 317 (140-400) K/mcL Neutrophils # 6.2 (1.6-8.9) K/mcL BMP 01/03/17 02:55 Sodium 140 Potassium 3.2 L Chloride 101 Carbon Dioxide 28 BUN 24 Creatinine 1.75 H Glucose 169 H Calcium 9.0 Liver Function 01/03/17 Range/Units 02:55 Total Bilirubin 0.5 (0.2-1.2) mg/dL AST 17 (5-34) Units/L ALT 13 (0-55) Units/L Alkaline Phosphatase 84 (38-126) Units/L Albumin 3.4 L (3.5-5.0) g/dL - ABG Interpretation ABG results: PT/INR, D-dimer PT 11.2 Seconds (9.4-12.1) 01/01/17 12:42 D-Dimer 2490 ng/mLFEU (0-500) H 01/01/17 16:55 - Impressions Impressions Echocardiogram Limited Views 01/02/17 10:45 Impressions: LVEF 55%. Normal LV chamber size and function. Moderate concentric left ventricular hypertrophy. Left Ventricular Wall Motion: Rest Echo Findings All wall segments showed normal motion. Findings: Study Quality * Technically adequate exam. ECG Findings * Normal sinus rhythm. Left Ventricle * LVEF 55%. * Normal LV chamber size and function. * Moderate concentric left ventricular hypertrophy. Right Ventricle * Normal right ventricular structure and function. Left Atrium * Moderately dilated left atrium. Right Atrium * Mildly dilated right atrium. Pericardium * The pericardium appears normal. - Attending Attestation I examined this patient and my medical decision-making was reviewed with the Resident Physician on 01/03/17. I agree with the documented findings, disposition and treatment plan as described except to the extent set forth below. Mr Willis is currently admitted for acute exac CHF. He has had increase in creatinine overnight. He remains moderate to high risk due to potential for worsening cardiac status. Mr Willis is resting. He wants to go home today. Creatinine has increased. Cardiology wants to do stress test. No fever or chills. No CP at this time. Exam Alert. Comfortable Heart not tachy Lungs diminished. No wheeze Abd soft Improving edema I/P 1. Acute CHF 2. PRAVEENA - recheck tomorrow Further diagnoses and plan as above.
[2017-01-04 05:04] LABS: Basophils % 0.4 %; Eosinophils # 0.3 K/mcL (0.0-0.6); Eosinophils % 3.3 %; Hematocrit 33.7 % (37.5-50.1); Hemoglobin 10.3 g/dL (12.9-16.9); Immature Granulocytes % 0.4 % (0-4); Lymphocytes # 2.1 K/mcL (0.6-4.6); Lymphocytes % 26.8 %; Mean Corpuscular HGB Conc 30.6 g/dL (31.6-35.5); Mean Corpuscular Volume 81.8 fL (83.0-100.0); Mean Platelet Volume 8.9 fL (9.4-12.4); Monocytes # 0.8 K/mcL (0.0-1.3); Neutrophils # 4.7 K/mcL (1.6-8.9); Platelet Count 316 K/mcL (140-400); Red Blood Count 4.12 M/mcL (4.19-5.50); Red Cell Distribution Width 20.2 % (11.5-14.5); Segmented Neutrophils % 59.1 %
[2017-01-04] MEDS: *HR* Heparin 5,000 UNIT/ML VIAL SQ SCH (05:10)
[2017-01-04 05:22] LABS: Albumin 3.1 g/dL (3.5-5.0); Albumin/Globulin Ratio 0.8 (1.1-2.2); Bilirubin,Total 0.4 mg/dL (0.2-1.2); Calcium 8.9 mg/dL (8.6-10.8); Potassium 3.6 mEq/L (3.5-4.5); Total Protein 7.1 g/dL (6.0-8.3)
[2017-01-04] MEDS ORDERED: Regadenoson 0.4 MG/5 ML SYRINGE IVP ONE (05:41)
--- NOTE | 2017-01-04 09:57 | Discharge Summary ---
<Des Hollingsworth - Last Filed: 01/04/17 09:55> Date of Encounter: 01/04/17 Time of Encounter: 09:00 - Discharge Diagnosis (1) Acute exacerbation of CHF (congestive heart failure) Priority: Primary Status: Acute Qualifiers: Congestive heart failure type: diastolic Qualified Code(s): I50.33 - Acute on chronic diastolic (congestive) heart failure (2) Acute kidney injury Priority: Primary Status: Acute (3) Diabetes Priority: Primary Status: Chronic Qualifiers: Diabetes mellitus type: type 2 Diabetes mellitus complication status: without complication Diabetes mellitus tank terminal gauger insulin use: without tank terminal gauger use Qualified Code(s): E11.9 - Type 2 diabetes mellitus without complications (4) Elevated troponin I level Priority: Secondary Status: Acute (5) HLD (hyperlipidemia) Priority: Primary Status: Chronic Qualifiers: Hyperlipidemia type: mixed hyperlipidemia Qualified Code(s): E78.2 - Mixed hyperlipidemia (6) HTN (hypertension) Priority: Primary Status: Chronic Qualifiers: Hypertension type: essential hypertension Qualified Code(s): I10 - Essential (primary) hypertension (7) Hypokalemia Priority: Primary Status: Acute (8) Hypomagnesemia Priority: Primary Status: Acute (9) Iron deficiency anemia Priority: Secondary Status: Chronic Qualifiers: Iron deficiency anemia type: unspecified iron deficiency Qualified Code(s) : D50.9 - Iron deficiency anemia, unspecified (10) DVT prophylaxis Priority: Secondary Status: Acute - Discharge Medications Prescriptions: Ferrous Sulfate 325 mg PO BIDWM #30 tablet Furosemide [Lasix] 10 mg PO DAILY #30 tablet Home Medications: Aspirin Enteric Coated [Aspirin EC] 81 mg PO QA 10/12/14 [History] Metoprolol [Lopressor] 100 mg PO BID 10/12/14 [History] Omeprazole [PriLOSEC] 20 mg PO QAM 10/12/14 [History] GlipiZIDE XL (24 HR) [Glucotrol XL] 10 mg PO BID 03/29/15 [History] Simvastatin [Zocor] 40 mg PO HS 03/29/15 [History] amLODIPine [Norvasc] 10 mg PO DAILY 05/27/15 [History] Multivit-Min/FA/Lycopen/Lutein [Men 50 Plus Multivitamin Tab] 1 tab PO DAILY [History] Thiamine Mononitrate [Vitamin B-1] 100 mg PO DAILY 04/27/16 [History] Lisinopril [Zestril] 40 mg PO DAILY 01/01/17 [History] Ferrous Sulfate 325 mg PO BIDWM #30 tablet 01/04/17 [Rx] Furosemide [Lasix] 10 mg PO DAILY #30 tablet 01/04/17 [Rx] Allergies/Adverse Reactions: 3 Allergy/AdvReac Type Severity Reaction Status Date / Time codeine AdvReac Mild Agitated Verified 12/15/16 10:09 Procedures/tests Complete & Pending: Procedures Performed prior 72 hours Category Date Time Status CTA chest [CT angio chest] [CT] Stat Cat Scan 01/01/17 18:36 Completed NM trung perf SPECT multi [NM] Routine Exams 01/04/17 07:00 Taken EV limited echocardiogram Routine Y 01/02/17 10:45 Completed SP pharm nuclear stress Routine Y 01/04/17 06:00 Completed Date of admission: 01/01/17 17:24 Primary care physician: Desi Valdez CNP Discharging clinician: Des Hollingsworth Anticipated date of discharge: 01/04/17 - Patient Status Disposition: Home, Self-Care Condition: Good Overall status at discharge: patient is back to baseline - Ambulatory Orders Ambulatory Orders: Basic Metabolic Panel [CHEM] Time Frame: 1 Week, Facility: [facility], Location: Lab - Discharge Instructions Instructions: Iron Supplements (By mouth), Furosemide (By mouth), Heart Failure (DC), Acute Kidney Injury (DC), Diabetes Mellitus Type 2 in Adults (DC) , Chronic Hypertension (DC), Anemia (GEN), Hyperlipidemia (DC) Follow Up With: Juanito Fuentes MD [Partnered Physician] - (Notified Dr. Fuentes's office that patient needs follow up appointment with in 2-[address] Fuentes 's receptionist clerk states she will call patient with an appointment. If you do not receive call from Dr. Fuentes's office, please call and request appointment from 2 -3 weeks from discharge from hospital.) Desi Valdez CNP [Primary Care Provider] - 01/08/17 1:00 pm Karl Han DO [Partnered Physician] - (Cardiology will call with appointment. Call if cardiology has not called to make appointment. Need to follow up within 1-2 weeks from discharge.) Additional Instructions: Return to emergency room if evolvement of continued chest pain/heaviness/ pressure, development of shortness of breath, or new jaw or left arm pain. Take all medications as prescribed: 20 mg Lasix daily Continue home medications Follow-up with his PCP in 1 weeks Follow-up with Cardiology in 1-2 weeks Follow up with nephrology in 2-3 weeks - Diet and Activity Activity: increase activity as tolerated Diet: low fat, low cholesterol, low salt diet Interval History: Patient reports that he is doing well today. He is anxious for food and potential discharge. He denies any shortness of breath, chest pain, chest heaviness. He denies fever/chills. He states he has a minor dry cough but that this is not an everyday occurrence. Hospital course: Mr. Willis is a 76 year old male with prior medical history of arthritis, insulin controlled diabetes mellitus, bilateral glaucoma, hyperlipidemia, hypertension and has had several orthopedic surgeries in the past presented to [place] on 01/01/17 with central chest pressure. He denied any radiation of pain, nausea, vomiting, but reported diaphoresis, shortness of breath, and orthopnea of one day duration prior to admission. He reports having had some weight gain and pedal edema. He was found to have elevated troponins, but these remained stable x3. A CTA performed in the emergency room showed bilateral pleural effusions. He was found to have an acute exacerbation of congestive heart failure and was started on Lasix and placed on fluid restriction. Cardiology was consulted for persistent management of his CHF and for stress test. Patient underwent stress test on 01/03/17 after sufficient diuresis was obtained. The stress test was negative for ischemia and patient is safe for discharge. - Time Spent with Patient Total time spent providing and/or coordinating discharge services: Greater than 30 minutes - Constitutional Vitals: Temp Pulse Resp BP Pulse Ox 98.2 F 86 19 126/69 97 01/04/17 09:00 01/04/17 09:00 01/04/17 09:00 01/04/17 09:00 01/04/17 09:00 General appearance: Present: cooperative, A&O X 3, pleasant, no acute distress, answers questions appropriately Exam: General: Cooperative, pleasant, no acute distress, alert and oriented 3, answers questions appropriately HEENT: Normocephalic, atraumatic, Conjunctiva pink, sclera anicteric Respiratory: No accessory muscle usage, clear to auscultation bilaterally, no wheezes/rhonchi/rales appreciated Cardiovascular: Regular rate and rhythm, S1 and S2 present, no murmurs/rubs/ gallops/clicks appreciated GI/abdominal: Nondistended, nontender, soft, normal bowel sounds, no peritoneal signs Extremities: No calf tenderness, no pedal edema appreciated, warm, lower extremity pulses palpable and symmetrical Neurological: Alert and oriented 3, no facial droop, no focal deficits <Rik Bonds - Last Filed: 01/04/17 15:21> Date of Encounter: 01/04/17 - Discharge Diagnosis (1) Acute respiratory failure with hypoxia Priority: Primary Status: Acute (2) Acute exacerbation of CHF (congestive heart failure) Status: Acute Qualifiers: Congestive heart failure type: diastolic Qualified Code(s): I50.33 - Acute on chronic diastolic (congestive) heart failure (3) Acute kidney injury Status: Acute (4) Diabetes Status: Chronic Qualifiers: Diabetes mellitus type: type 2 Diabetes mellitus complication status: without complication Diabetes mellitus tank terminal gauger insulin use: without tank terminal gauger use Qualified Code(s): E11.9 - Type 2 diabetes mellitus without complications (5) HTN (hypertension) Status: Chronic Qualifiers: Hypertension type: essential hypertension Qualified Code(s): I10 - Essential (primary) hypertension (6) HLD (hyperlipidemia) Status: Chronic Qualifiers: Hyperlipidemia type: mixed hyperlipidemia Qualified Code(s): E78.2 - Mixed hyperlipidemia Procedures/tests Complete & Pending: Procedures Performed prior 72 hours Category Date Time Status CTA chest [CT angio chest] [CT] Stat Cat Scan 01/01/17 18:36 Completed NM trung perf SPECT multi [NM] Routine Exams 01/04/17 07:00 Taken EV limited echocardiogram Routine Y 01/02/17 10:45 Completed SP pharm nuclear stress Routine Y 01/04/17 06:00 Completed Date of admission: 01/01/17 17:24 Primary care physician: Desi Valdez CNP Hospital course: Mr. Willis is a 76 year old male - Time Spent with Patient Total time spent providing and/or coordinating discharge services: - Constitutional Vitals: Temp Pulse Resp BP Pulse Ox 98.2 F 76 18 125/80 97 01/04/17 09:00 01/04/17 11:00 11/06/17 11:00 01/04/17 11:00 01/04/17 11:00 - Attending Attestation I examined this patient and my medical decision-making was reviewed with the Resident Physician on 01/04/17. I agree with the documented findings, disposition and treatment plan as described except to the extent set forth below. Mr Willis has been admitted for acute exac CHF. His stress test was negative this AM. He is afebrile with stable vitals and is ready for discharge home. Exam Alert. Comfortable Heart reg No wheeze Abd soft Plan D/C home today Follow up with PCP Lasix 20mg daily.
[2017-01-04] MEDS: Aspirin Enteric Coated 81 MG Tablet PO SCH (10:08)
[2017-01-04] MEDS: amLODIPine 5 MG TABLET PO SCH (10:08)
[2017-01-04] MEDS: Thiamine (B-1) 100 MG TABLET PO SCH (10:08)
[2017-01-04] MEDS: Metoprolol 100 MG TABLET PO SCH (10:08)
[2017-01-04] MEDS: Pantoprazole 40 MG VIAL IVP SCH (10:13)
[2017-01-04] MEDS: Insulin LISPRO 300 UNITS/3 ML VIAL SQ SCH (10:16)
--- NOTE | 2017-01-04 10:53 | Cardiology Progress Note ---
Date of Encounter: 01/04/17 Time of Encounter: 10:30 Assessment and Plan (1) Diastolic congestive heart failure, NYHA class 2 Current Visit: Yes Status: Acute Per cardiology: -Admitted with shortness of breath, orthopnea. -BNP 543. -Chest x-ray with mild pulmonary vascular congestion. -Net negative 800ml. -Report shortness of breath imrpoved today. -Euvolemic on exam today. -Pateint reports he has not been compliant with fluid and sodium restriction. Patient reports he weighs himself daily "most of the time." -TTE 04/2016 LVEF 55%, moderate diastolic dysfunction. -CHF education reinforced regarding fluid restriction, sodium restriction, and daily weights. Patient educated to call cardiology for weight gain on 2 pounds overnight or 5 pounds in one week. -Recommend patient be discharged with lasix 20mg daily. -Recommend BMP in one week. -Recommned outpatient follow up with nephrology. -Cardiology will sign off and will follow in outpatient setting. Follow up set. Qualifiers: Congestive heart failure chronicity: acute on chronic Qualified Code(s): I50.33 - Acute on chronic diastolic (congestive) heart failure (2) Chest pressure Current Visit: Yes Status: Acute Per cardiology: -Had chest pressure with increased shortness of breath. -States chest pressure worsening with deep inspiration. -Denies exertion chest pressure. -Denies current chest pressure. -ECG with no acute ischemic changes. -Troponin mildly elevated. -Stress negative for ischemia or infarct. Suspect chest pressure related to fluid overload. (3) Elevated troponin Current Visit: Yes Status: Acute Per cardiology: -Troponins 0.05, 0.05, 0.06. -Troponins flat and adynamic in the setting of CHF. -Denies current chest pain/pressure. -ECG with no acute ischemic changes. -TTE 04/2016 with LVEF preserved, all wall segments with normal motion. -Do not suspect NSTEMI, suspect demand ischemic related to above. No cardiac rehab warranted. -Stress text negative for ischemia or infarct. (4) Renal insufficiency Current Visit: Yes Status: Chronic Per cardiology: -Creatinine on admssion 1.14, today 1.73. -Of note, Creatinine previously 2.25 04/2016. -Can consider nephrology consult -Management per primary service. Discussion w patient/family: The assessment and plan as outlined above was discussed with the patient who expressed understanding and agreement. All questions were answered. Thank you for involving us in the care of your patient. Please call with any questions. Discussed and reviewed with . Subjective Principal diagnosis: diastolic CHF Interval history: Patient states breathing much improved today. Denies chest pain. Patient states he is ready to go home. Objective Vital Signs, Last 4 Hours Temp Pulse Resp BP Pulse Ox 01/04/17 10:07 83 126/73 01/04/17 09:00 98.2 F 86 19 126/69 97 General: Conversant, No Apparent Distress HEENT: Atraumatic, Normocephaly, Mucus Membranes Moist Neck: No JVD, Normal carotid pulses Cardiac: Reg Rate and Rhythm, Normal S1 and S2, No Murmur Lungs: Normal Breath Sounds, No Wheeze, Rales, Rhonchi Neuro: Alert and responsive, No focal deficits noted Abdomen: Soft, Non-Tender Skin: No rashes noted on visualized skin Musculoskeletal: No Chest Wall Tenderness Extremities: No Clubbing, No Cyanosis, No Edema, Normal Pulses Results 01/04/17 04:07 01/04/17 04:07 Lab Results Current Medications Acetaminophen (Tylenol) 650 mg PO Q6HR PRN PRN Reason: Mild Pain (1-3) Stop: 07/03/17 16:28 Last Admin: 01/02/17 20:20 Dose: 650 mg Amlodipine Besylate (Norvasc) 10 mg PO DAILY [facility] PRN Reason: Protocol Stop: 07/04/17 09:01 Last Admin: 01/04/17 10:08 Dose: 10 mg Aspirin (Aspirin Ec) 81 mg PO QAM [facility] Stop: 07/04/17 09:01 Last Admin: 01/04/17 10:08 Dose: 81 mg Dextrose/Water (Dextrose 50% (Syg)) 25 ml IVP AD PRN PRN Reason: Hypoglycemia Stop: 07/03/17 16:33 Ferrous Sulfate (Ferrous Sulfate) 325 mg PO BIDWM [facility] Stop: 07/04/17 17:01 Last Admin: 01/04/17 10:08 Dose: 325 mg Glucagon (Glucagen) 1 mg IM ONCE PRN PRN Reason: Hypoglycemia Stop: 07/03/17 16:33 Glucose (Gluctose) 15 gm PO ONCE PRN PRN Reason: Hypoglycemia Stop: 07/03/17 16:33 Glucose (Gluctose) 30 gm PO ONCE PRN PRN Reason: Hypoglycemia Stop: 07/03/17 16:33 Heparin Sodium (Porcine) (Heparin) 5,000 unit SQ Q8HCO [facility] Stop: 07/04/17 22:01 Last Admin: 01/04/17 05:10 Dose: 5,000 unit Hydralazine HCl (Hydralazine) 10 mg IVP Q6HR PRN PRN Reason: Hypertension Stop: 07/04/17 00:27 Last Admin: 01/02/17 00:54 Dose: 10 mg Dextrose (Dextrose 5%) 1,000 mls @ 100 mls/hr IVC .Q10H PRN PRN Reason: HYPOGLYCEMIA Stop: 07/03/17 16:33 Insulin Human Lispro (Humalog) 0 units SQ TIDAC [facility] PRN Reason: Protocol Stop: 07/03/17 16:46 Last Admin: 01/04/17 10:16 Dose: 6 units Insulin Human Lispro (Humalog) 0 units SQ HS [facility] PRN Reason: Protocol Stop: 07/03/17 21:01 Last Admin: 01/03/17 22:31 Dose: Not Given Lisinopril (Zestril) 40 mg PO DAILY [facility] Stop: 07/04/17 09:01 Last Admin: 01/02/17 08:14 Dose: 40 mg Metoprolol Tartrate (Lopressor) 100 mg PO BID [facility] Stop: 07/03/17 21:01 Last Admin: 01/04/17 10:08 Dose: 100 mg Naloxone HCl (Narcan) 0.4 mg IVP Q2MIN PRN PRN Reason: Opioid Reversal Stop: 07/03/17 16:28 Ondansetron HCl (Zofran) 4 mg IVP Q8HR PRN PRN Reason: Nausea And Vomiting Stop: 07/03/17 16:28 Pantoprazole Sodium (Protonix) 40 mg IVP DAILY [facility] Stop: 07/03/17 16:31 Last Admin: 01/04/17 10:13 Dose: 40 mg Simvastatin (Zocor) 40 mg PO HS [facility] PRN Reason: Protocol Stop: 07/03/17 21:01 Last Admin: 01/03/17 22:35 Dose: 40 mg Thiamine HCl (Vitamin B-1) 100 mg PO DAILY [facility] Stop: 07/04/17 09:01 Last Admin: 01/04/17 10:08 Dose: 100 mg Zolpidem Tartrate (Ambien) 5 mg PO HS PRN; Protocol PRN Reason: Insomnia Stop: 07/03/17 18:39 Last Admin: 01/01/17 20:41 Dose: 5 mg Laboratory Tests 01/04/17 01/04/17 04:07 04:07 Hgb 10.3 L Potassium 3.6 Creatinine 1.73 H - Imaging and Cardiology Chest Xray: report reviewed Stress Test: report reviewed Echo: report reviewed - EKG Interpretation EKG results cardiology: other (Telemetry reviewed with average HR previous 12 hours noted to be 79, sinus rhythm. PVCs and PACs noted.) Consult Discharge Plan - Plan Instructions: Iron Supplements (By mouth), Furosemide (By mouth), Heart Failure (DC), Diabetes Mellitus Type 2 in Adults (DC), Chronic Hypertension (DC) , Anemia (GEN) Additional Instructions: Return to emergency room if evolvement of continued chest pain/heaviness/ pressure, development of shortness of breath, or new jaw or left arm pain. Take all medications as prescribed: 20 mg Lasix daily Continue home medications Follow-up with his PCP in 1 weeks Follow-up with Cardiology in 1-2 weeks Follow up with nephrology in 2-3 weeks Referrals: Desi Valdez CNP [Primary Care Provider] - Prescriptions: Ferrous Sulfate 325 mg PO BIDWM #30 tablet Furosemide [Lasix] 10 mg PO DAILY #30 tablet
[2017-01-04 11:23] VITALS: BP 125/80
== END 2017-01-04 12:54 | disposition home or self-care (01) | DRG 291 ==
LOC: 2NENU 12:03 → EMEROO 12:03 → 2NENU 16:42 → SUATTDRO 17:24
PROVIDERS: ADMIT Registered Nurse; ATTEND Internal Medicine

== ENCOUNTER 2020-05-01 13:01 | Inpatient (IN) ==
[2020-05-01 13:47] LABS: Basophils % 0.2 %; Eosinophils # 0.1 K/mcL (0.0-0.6); Eosinophils % 0.5 %; Hematocrit 29.1 % (37.5-50.1); Hemoglobin 8.7 g/dL (12.9-16.9); Immature Granulocytes % 0.5 % (0-4); Lymphocytes # 0.9 K/mcL (0.6-4.6); Lymphocytes % 7.9 %; Mean Corpuscular HGB Conc 29.9 g/dL (31.6-35.5); Mean Corpuscular Hemoglobin 26.3 pg (28.0-33.3); Mean Corpuscular Volume 87.9 fL (83.0-100.0); Mean Platelet Volume 8.8 fL (9.4-12.4); Monocytes # 0.5 K/mcL (0.0-1.3); Monocytes % 4.5 %; Neutrophils # 9.5 K/mcL (1.6-8.9); Platelet Count 316 K/mcL (140-400); Red Blood Count 3.31 M/mcL (4.19-5.50); Red Cell Distribution Width 17.2 % (11.5-14.5); Segmented Neutrophils % 86.4 %
[2020-05-01] MEDS ORDERED: Ondansetron 4 MG/2 ML VIAL IVP ONE (13:50)
[2020-05-01] MEDS ORDERED: 0.9 % Sodium Chloride 1,000 ML IVC ONE (13:50)
[2020-05-01 14:38] LABS: INR 2.2; Prothrombin Time 24.8 Seconds (9.4-12.1)
[2020-05-01 14:40] LABS: Calcium 7.6 mg/dL (8.6-10.3); Troponin I 0.05 ng/mL (< 0.04)
[2020-05-01] MEDS: Aspirin 81 MG TAB.CHEW PO SCH (15:06)
[2020-05-01] MEDS ORDERED: *HR* Dextrose 50 % in Water (Vial) 50 ML VIAL ONE (16:30)
[2020-05-01] MEDS ORDERED: *HR* Dextrose 50 % in Water (Vial) 50 ML VIAL IVP ONE (16:34)
[2020-05-01] MEDS ORDERED: D5% in Water 1,000 ML IVC PRN (17:00)
[2020-05-01] MEDS ORDERED: Dextrose Gel 15 GM/37.5 ML TUBE PO PRN ×2 (17:00)
[2020-05-01] MEDS ORDERED: Ondansetron 4 MG/2 ML VIAL IVP PRN (17:00)
[2020-05-01] MEDS ORDERED: Naloxone 0.4 MG/ML INJ IVP PRN (17:00)
[2020-05-01] MEDS ORDERED: Acetaminophen 325 MG TABLET PO PRN (17:00)
[2020-05-01] MEDS ORDERED: *HR* OxyCODONE Immed Rel 5 MG TABLET PO PRN (17:00)
[2020-05-01] MEDS ORDERED: Nitroglycerin 0.4 MG TAB.SUBL SL PRN (17:05)
[2020-05-01] MEDS ORDERED: Perflutren Lipid Microsphere 1.3 ML in 0.9 % Sodium Chloride 8.7 ML IVP PRN (17:05)
[2020-05-01 17:51] LABS: INR 2.1; Prothrombin Time 23.7 Seconds (9.4-12.1)
[2020-05-02] MEDS: Melatonin 3 MG TABLET PO PRN ×2 (00:48→21:59)
[2020-05-02] MEDS: *HR* Dextrose 50 % in Water (Vial) 50 ML VIAL IVP PRN ×2 (03:57→07:29)
[2020-05-02 03:59] LABS: Basophils % 0.1 %; Eosinophils # 0.3 K/mcL (0.0-0.6); Eosinophils % 3.1 %; Hematocrit 24.5 % (37.5-50.1); Hemoglobin 7.3 g/dL (12.9-16.9); Immature Granulocytes % 0.5 % (0-4); Lymphocytes # 1.1 K/mcL (0.6-4.6); Lymphocytes % 12.3 %; Mean Corpuscular HGB Conc 29.8 g/dL (31.6-35.5); Mean Corpuscular Hemoglobin 25.8 pg (28.0-33.3); Mean Corpuscular Volume 86.6 fL (83.0-100.0); Mean Platelet Volume 8.7 fL (9.4-12.4); Monocytes # 0.6 K/mcL (0.0-1.3); Monocytes % 6.5 %; Neutrophils # 6.8 K/mcL (1.6-8.9); Platelet Count 258 K/mcL (140-400); Red Blood Count 2.83 M/mcL (4.19-5.50); Red Cell Distribution Width 17.3 % (11.5-14.5); Segmented Neutrophils % 77.5 %; White Blood Count 8.8 K/mcL (4.3-11.1)
[2020-05-02 04:23] LABS: % Iron Saturation 9 % (20-55); Iron 29 mcg/dL (65-175); Transferrin 219 mg/dL (203-362)
[2020-05-02 04:38] LABS: Ferritin 84 ng/mL (20-250)
[2020-05-02 04:41] LABS: Chol/HDL Ratio 3.2 (0-4.9); Magnesium 0.8 mg/dL (1.6-2.6); Potassium 3.9 mEq/L (3.5-5.1); Troponin I 0.07 ng/mL (< 0.04)
[2020-05-02 04:43] LABS: Folate 5.2 ng/mL (3.0-16.0)
[2020-05-02 04:51] LABS: Estimated Average Glucose 126 mg/dl
[2020-05-02] MEDS: Insulin LISPRO 300 UNITS/3 ML VIAL SUBQ SCH ×3 (07:33→16:35)
[2020-05-02] MEDS: Aspirin 81 MG TAB.CHEW PO SCH (07:44)
[2020-05-02 08:33] LABS: Hematocrit 25.2 % (37.5-50.1); Hemoglobin 7.5 g/dL (12.9-16.9)
[2020-05-02 12:06] LABS: Adenovirus Not Detected (Not Detect); Bordetella Pertussis Not Detected (Not Detect); Chlamydophila pneumoniae Not Detected (Not Detect); Coronavirus 229E Not Detected (Not Detect); Coronavirus HKU1 Not Detected (Not Detect); Coronavirus NL63 Not Detected (Not Detect); Coronavirus OC43 Not Detected (Not Detect); Human Metapneumovirus Not Detected (Not Detect); Human Rhinovirus/Enterovirus Not Detected (Not Detect); Influenza A Subtype 2009 H1 Not Detected (Not Detect); Influenza B Not Detected (Not Detect); Mycoplasma pneumoniae Not Detected (Not Detect); Parainfluenza Virus 1 Not Detected (Not Detect); Parainfluenza Virus 2 Not Detected (Not Detect); Parainfluenza Virus 3 Not Detected (Not Detect); Parainfluenza Virus 4 Not Detected (Not Detect); Respiratory Syncytial Virus Not Detected (Not Detect); SARS-CoV-2 Not Detected (Not Detect)
[2020-05-02] MEDS: amLODIPine 5 MG TABLET PO SCH (15:22)
[2020-05-02] MEDS: Cyanocobalamin (B-12) 1,000 MCG TABLET PO SCH (15:22)
[2020-05-02] MEDS ORDERED: SODIUM CHLORIDE/NAHCO3/KCL/PEG 4,000 ML SOLN.RECON PO ONE (17:00)
[2020-05-02] MEDS: Torsemide 20 MG TABLET PO SCH (17:20)
[2020-05-02 17:58] LABS: INR 2.2; Prothrombin Time 24.5 Seconds (9.4-12.1)
[2020-05-02] MEDS ORDERED: traZODone 50 MG TABLET PO SCH (21:00)
[2020-05-03 06:17] LABS: Basophils % 0.3 %; Eosinophils # 0.3 K/mcL (0.0-0.6); Eosinophils % 3.5 %; Hematocrit 24.1 % (37.5-50.1); Hemoglobin 7.4 g/dL (12.9-16.9); Immature Granulocytes % 0.4 % (0-4); Lymphocytes # 1.3 K/mcL (0.6-4.6); Lymphocytes % 16.4 %; Mean Corpuscular HGB Conc 30.7 g/dL (31.6-35.5); Mean Corpuscular Volume 84.6 fL (83.0-100.0); Mean Platelet Volume 9.2 fL (9.4-12.4); Monocytes # 0.7 K/mcL (0.0-1.3); Monocytes % 8.7 %; Neutrophils # 5.5 K/mcL (1.6-8.9); Platelet Count 242 K/mcL (140-400); Red Blood Count 2.85 M/mcL (4.19-5.50); Red Cell Distribution Width 17.2 % (11.5-14.5); Segmented Neutrophils % 70.7 %; White Blood Count 7.7 K/mcL (4.3-11.1)
[2020-05-03 06:29] LABS: INR 2.2; Prothrombin Time 24.7 Seconds (9.4-12.1)
[2020-05-03 06:41] LABS: Calcium 6.8 mg/dL (8.6-10.3); Potassium 3.5 mEq/L (3.5-5.1)
[2020-05-03] MEDS ORDERED: Lidocaine -MPF 2% 2 ML VIAL ONE (07:07)
[2020-05-03] MEDS: Insulin LISPRO 300 UNITS/3 ML VIAL SUBQ SCH ×2 (07:42→13:43)
[2020-05-03] MEDS ORDERED: EPHEDrine 50 MG/ML VIAL ONE (08:43)
[2020-05-03] MEDS ORDERED: *HR* Propofol 200 MG/20 ML VIAL IVP ONE (08:46)
[2020-05-03] MEDS ORDERED: lisinopriL 20 MG TABLET PO SCH (09:00)
[2020-05-03] MEDS: Aspirin 81 MG TAB.CHEW PO SCH (09:58)
[2020-05-03] MEDS: Cyanocobalamin (B-12) 1,000 MCG TABLET PO SCH (09:59)
[2020-05-03] MEDS: Torsemide 20 MG TABLET PO SCH (09:59)
[2020-05-03] MEDS: amLODIPine 5 MG TABLET PO SCH (09:59)
[2020-05-03 10:05] VITALS: BP 113/66
== END 2020-05-03 17:12 | disposition home or self-care (01) | DRG 638 ==
LOC: 3BNU 13:01 → EMEROOARM 13:01 → SUATTDRO 16:27 → 3BNU 17:13
PROVIDERS: ADMIT Internal Medicine; ATTEND Internal Medicine

== ENCOUNTER 2020-08-13 09:30 | Inpatient (IN) ==
[2020-08-13] MEDS ORDERED: Isovue-370 500 ML BOTTLE IVP ONE (10:28)
[2020-08-13 11:26] LABS: Basophils % 0.3 %; Eosinophils # 0.2 K/mcL (0.0-0.6); Eosinophils % 2.2 %; Hematocrit 27.5 % (37.5-50.1); Hemoglobin 8.2 g/dL (12.9-16.9); Immature Granulocytes % 0.4 % (0-4); Lymphocytes # 1.2 K/mcL (0.6-4.6); Lymphocytes % 10.5 %; Mean Corpuscular HGB Conc 29.8 g/dL (31.6-35.5); Mean Corpuscular Hemoglobin 25.6 pg (28.0-33.3); Mean Corpuscular Volume 85.9 fL (83.0-100.0); Monocytes # 0.7 K/mcL (0.0-1.3); Monocytes % 6.5 %; Neutrophils # 8.9 K/mcL (1.6-8.9); Platelet Count 284 K/mcL (140-400); Red Cell Distribution Width 19.3 % (11.5-14.5); Segmented Neutrophils % 80.1 %; White Blood Count 11.1 K/mcL (4.3-11.1)
[2020-08-13 11:33] LABS: INR 1.5; Prothrombin Time 17.4 Seconds (9.4-12.1)
[2020-08-13] MEDS ORDERED: Tdap (Boostrix) Vaccine 0.5 ML SYRINGE IM ONE (11:33)
[2020-08-13 11:35] LABS: Activated Partial Thrombo Time 28.1 Seconds (26.0-36.0)
[2020-08-13 11:45] LABS: Calcium 8.8 mg/dL (8.6-10.3); Potassium 5.4 mEq/L (3.5-5.1)
[2020-08-13] MEDS ORDERED: 0.9 % Sodium Chloride 250 ML IVC ONE (12:01)
[2020-08-13 12:48] LABS: Troponin I 0.07 ng/mL (< 0.04)
[2020-08-13 13:32] LABS: Bilirubin,Urine Negative (Negative); Blood,Urine Negative (Negative); Clarity,Urine Clear (Clear); Color,Urine Colorless (Yellow); Glucose,Urine (UA) Normal (Normal); Ketones,Urine Negative (Negative); Leukocyte Esterase,Urine Negative (Negative); Nitrite,Urine Negative (Negative); Protein,Urine Negative (Neg-Trace); Urobilinogen,Urine Normal (Normal)
[2020-08-13] MEDS: Aspirin 81 MG TAB.CHEW PO SCH (16:16)
[2020-08-13] MEDS ORDERED: Naloxone 0.4 MG/ML INJ IVP PRN (17:29)
[2020-08-13] MEDS ORDERED: Ondansetron 4 MG/2 ML VIAL IVP PRN (17:29)
[2020-08-13] MEDS ORDERED: Acetaminophen 325 MG TABLET PO PRN ×2 (17:29→18:56)
[2020-08-13] MEDS ORDERED: D5% in Water 1,000 ML IVC PRN (19:14)
[2020-08-13] MEDS ORDERED: Ipratropium/Albuterol Neb 3 ML IH PRN (19:14)
[2020-08-13] MEDS ORDERED: Dextrose Gel 15 GM/37.5 ML TUBE PO PRN ×2 (19:14)
[2020-08-13] MEDS ORDERED: *HR* Dextrose 50 % in Water (Vial) 50 ML VIAL IVP PRN (19:14)
[2020-08-13] MEDS: Insulin LISPRO 300 UNITS/3 ML VIAL SUBQ SCH ×2 (19:30→20:11)
[2020-08-14 01:34] LABS: Basophils % 0.1 %; Eosinophils # 0.2 K/mcL (0.0-0.6); Hematocrit 26.7 % (37.5-50.1); Hemoglobin 7.9 g/dL (12.9-16.9); Immature Granulocytes % 0.3 % (0-4); Lymphocytes % 11.5 %; Mean Corpuscular HGB Conc 29.6 g/dL (31.6-35.5); Mean Corpuscular Hemoglobin 25.3 pg (28.0-33.3); Mean Corpuscular Volume 85.6 fL (83.0-100.0); Mean Platelet Volume 8.9 fL (9.4-12.4); Monocytes # 0.8 K/mcL (0.0-1.3); Neutrophils # 6.9 K/mcL (1.6-8.9); Platelet Count 269 K/mcL (140-400); Red Blood Count 3.12 M/mcL (4.19-5.50); Red Cell Distribution Width 19.4 % (11.5-14.5); Segmented Neutrophils % 77.1 %; White Blood Count 8.9 K/mcL (4.3-11.1)
[2020-08-14 02:00] LABS: Albumin 3.7 g/dL (3.5-5.7); Albumin/Globulin Ratio 1.2 (1.1-2.2); Bilirubin,Direct 0.1 mg/dL (0.0-0.2); Bilirubin,Indirect 0.4 mg/dL (0.0-1.0); Bilirubin,Total 0.5 mg/dL (0.3-1.0); Calcium 8.7 mg/dL (8.6-10.3); Magnesium 2.6 mg/dL (1.6-2.6); Potassium 5.1 mEq/L (3.5-5.1); Total Protein 6.7 g/dL (6.4-8.9)
[2020-08-14 02:22] LABS: Folate 8.1 ng/mL (3.0-16.0)
[2020-08-14 03:24] LABS: Estimated Average Glucose 151 mg/dl; Hemoglobin A1C 6.9 %
[2020-08-14] MEDS: Insulin LISPRO 300 UNITS/3 ML VIAL SUBQ SCH ×4 (07:21→20:21)
[2020-08-14] MEDS: Aspirin 81 MG TAB.CHEW PO SCH (08:41)
[2020-08-14] MEDS: traZODone 50 MG TABLET PO SCH (20:19)
[2020-08-14] MEDS ORDERED: Iron Sucrose Complex 200 MG in 0.9 % Sodium Chloride 100 ML IVPB ONE (20:19)
[2020-08-14] MEDS: Gabapentin 300 MG CAPSULE PO SCH (21:20)
[2020-08-14] MEDS: *HR* OxyCODONE Immed Rel 5 MG TABLET PO PRN (22:18)
[2020-08-15 07:17] LABS: Basophils % 0.4 %; Eosinophils # 0.2 K/mcL (0.0-0.6); Eosinophils % 2.8 %; Hematocrit 26.8 % (37.5-50.1); Hemoglobin 7.9 g/dL (12.9-16.9); Immature Granulocytes % 0.5 % (0-4); Lymphocytes # 1.1 K/mcL (0.6-4.6); Lymphocytes % 13.3 %; Mean Corpuscular HGB Conc 29.5 g/dL (31.6-35.5); Mean Corpuscular Hemoglobin 25.2 pg (28.0-33.3); Mean Corpuscular Volume 85.6 fL (83.0-100.0); Monocytes % 11.2 %; Neutrophils # 6.1 K/mcL (1.6-8.9); Platelet Count 252 K/mcL (140-400); Red Blood Count 3.13 M/mcL (4.19-5.50); Segmented Neutrophils % 71.8 %; White Blood Count 8.5 K/mcL (4.3-11.1)
[2020-08-15 08:13] LABS: INR 1.5; Prothrombin Time 17.1 Seconds (9.4-12.1)
[2020-08-15 08:18] LABS: Calcium 8.7 mg/dL (8.6-10.3); Magnesium 2.7 mg/dL (1.6-2.6); Potassium 5.1 mEq/L (3.5-5.1)
[2020-08-15] MEDS ORDERED: Magnesium Oxide 400 MG TABLET PO SCH (09:00)
[2020-08-15] MEDS: Insulin LISPRO 300 UNITS/3 ML VIAL SUBQ SCH ×4 (09:33→21:11)
[2020-08-15] MEDS: Pyridoxine (B-6) 50 MG TABLET PO SCH (09:51)
[2020-08-15] MEDS: Cyanocobalamin (B-12) 1,000 MCG TABLET PO SCH (09:51)
[2020-08-15] MEDS: Thiamine (B-1) 100 MG TABLET PO SCH (09:51)
[2020-08-15] MEDS: Aspirin 81 MG TAB.CHEW PO SCH (09:51)
[2020-08-15] MEDS: amLODIPine 5 MG TABLET PO SCH (09:52)
[2020-08-15] MEDS: *HR* OxyCODONE Immed Rel 5 MG TABLET PO PRN ×2 (11:55→21:59)
[2020-08-15] MEDS ORDERED: Warfarin perPT PO PRN (18:00)
[2020-08-15] MEDS ORDERED: *HR* Warfarin 3 MG TABLET PO ONE (18:00)
[2020-08-15] MEDS: Gabapentin 300 MG CAPSULE PO SCH (21:11)
[2020-08-15] MEDS: traZODone 50 MG TABLET PO SCH (21:59)
[2020-08-16 05:33] LABS: Basophils % 0.2 %; Eosinophils # 0.3 K/mcL (0.0-0.6); Eosinophils % 3.8 %; Hematocrit 26.2 % (37.5-50.1); Immature Granulocytes % 0.5 % (0-4); Lymphocytes # 1.2 K/mcL (0.6-4.6); Mean Corpuscular HGB Conc 30.5 g/dL (31.6-35.5); Mean Corpuscular Hemoglobin 25.9 pg (28.0-33.3); Mean Corpuscular Volume 84.8 fL (83.0-100.0); Mean Platelet Volume 8.9 fL (9.4-12.4); Monocytes # 0.8 K/mcL (0.0-1.3); Monocytes % 10.1 %; Neutrophils # 5.9 K/mcL (1.6-8.9); Platelet Count 275 K/mcL (140-400); Red Blood Count 3.09 M/mcL (4.19-5.50); Red Cell Distribution Width 18.8 % (11.5-14.5); Segmented Neutrophils % 71.4 %; White Blood Count 8.2 K/mcL (4.3-11.1)
[2020-08-16 05:54] LABS: Calcium 9.2 mg/dL (8.6-10.3); Magnesium 2.6 mg/dL (1.6-2.6); Potassium 5.2 mEq/L (3.5-5.1)
[2020-08-16 06:02] LABS: INR 1.4; Prothrombin Time 15.5 Seconds (9.4-12.1)
[2020-08-16 07:27] VITALS: BP 147/78
[2020-08-16] MEDS: Thiamine (B-1) 100 MG TABLET PO SCH (07:48)
[2020-08-16] MEDS: Cyanocobalamin (B-12) 1,000 MCG TABLET PO SCH (07:49)
[2020-08-16] MEDS: Pyridoxine (B-6) 50 MG TABLET PO SCH (07:49)
[2020-08-16] MEDS: Aspirin 81 MG TAB.CHEW PO SCH (07:49)
[2020-08-16] MEDS: amLODIPine 5 MG TABLET PO SCH (07:49)
[2020-08-16] MEDS: Insulin LISPRO 300 UNITS/3 ML VIAL SUBQ SCH (07:51)
[2020-08-16] MEDS ORDERED: *HR* Warfarin 5 MG TABLET PO ONE (18:00)
== END 2020-08-16 10:30 | disposition home health service (06) | DRG 184 ==
LOC: 3BNU 09:30 → EMEROOARM 09:30 → SUATTDRO 17:36 → 3BNU 19:42
PROVIDERS: ADMIT Pharmacist; ATTEND Pharmacist

== ENCOUNTER 2021-07-16 13:19 | Inpatient (IN) ==
[2021-07-16 14:30] LABS: Basophils # 0.1 K/mcL (0.0-0.2); Basophils % 0.4 %; Eosinophils # 0.1 K/mcL (0.0-0.6); Eosinophils % 0.6 %; Hematocrit 29.5 % (37.5-50.1); Immature Granulocytes % 2.6 % (0-4); Lymphocytes # 1.5 K/mcL (0.6-4.6); Lymphocytes % 10.3 %; Mean Corpuscular HGB Conc 30.5 g/dL (31.6-35.5); Mean Corpuscular Volume 91.6 fL (83.0-100.0); Mean Platelet Volume 9.2 fL (9.4-12.4); Monocytes % 6.9 %; Neutrophils # 11.2 K/mcL (1.6-8.9); Platelet Count 399 K/mcL (140-400); Red Blood Count 3.22 M/mcL (4.19-5.50); Red Cell Distribution Width 19.5 % (11.5-14.5); Segmented Neutrophils % 79.2 %; White Blood Count 14.2 K/mcL (4.3-11.1)
[2021-07-16 14:37] LABS: INR 4.2
[2021-07-16 14:40] LABS: Activated Partial Thrombo Time 41.4 Seconds (26.0-36.0)
[2021-07-16 14:44] LABS: Prothrombin Time 46.2 Seconds (9.4-12.1)
[2021-07-16 15:08] LABS: Potassium 3.7 mEq/L (3.5-5.1); Troponin I 0.13 ng/mL (< 0.04)
[2021-07-16 15:24] LABS: Magnesium 1.6 mg/dL (1.6-2.6)
[2021-07-16 17:11] LABS: Bilirubin,Urine Negative (Negative); Blood,Urine Negative (Negative); Clarity,Urine Clear (Clear); Color,Urine Colorless (Yellow); Glucose,Urine (UA) Normal (Normal); Ketones,Urine Negative (Negative); Leukocyte Esterase,Urine Trace (Negative); Nitrite,Urine Negative (Negative); Protein,Urine Negative (Neg-Trace); RBC,Urine 0-3 per hpf (0-3); Squamous Epithelial Cell,Urine Few per hpf (None-Few); Urobilinogen,Urine Normal (Normal); WBC,Urine 0-3 per hpf (0-3)
[2021-07-16] MEDS ORDERED: Naloxone 0.4 MG/ML INJ IVP PRN (17:13)
[2021-07-16] MEDS ORDERED: Ondansetron ODT 4 MG TAB.RAPDIS SL PRN (17:13)
[2021-07-16] MEDS ORDERED: Acetaminophen 325 MG TABLET PO PRN (17:13)
[2021-07-16] MEDS ORDERED: D5% in Water 1,000 ML IVC PRN (17:13)
[2021-07-16] MEDS ORDERED: Dextrose 4 GM Chewable Tablets PO PRN ×2 (17:13)
[2021-07-16] MEDS ORDERED: *HR* Dextrose 50 % in Water (Syg) 50 ML SYRINGE IVP PRN (17:13)
[2021-07-16 18:10] LABS: Thyroid Stimulating Hormone 2.692 mcIU/mL (0.340-5.600)
[2021-07-16] MEDS: Gabapentin 100 MG CAPSULE PO SCH (21:45)
[2021-07-16] MEDS: Insulin LISPRO 300 UNITS/3 ML VIAL SUBQ SCH (21:46)
[2021-07-16] MEDS: Insulin DETEMIR 100 UNIT/ML X5UNITS SUBQ SCH (21:46)
[2021-07-16] MEDS: Latanoprost 2.5 ML BOTTLE BOTH EYES SCH (21:46)
[2021-07-17 05:16] LABS: Hematocrit 28.4 % (37.5-50.1); Hemoglobin 8.7 g/dL (12.9-16.9); Mean Corpuscular HGB Conc 30.6 g/dL (31.6-35.5); Mean Corpuscular Hemoglobin 27.9 pg (28.0-33.3); Mean Platelet Volume 8.9 fL (9.4-12.4); Platelet Count 344 K/mcL (140-400); Red Blood Count 3.12 M/mcL (4.19-5.50); Red Cell Distribution Width 19.9 % (11.5-14.5); White Blood Count 10.5 K/mcL (4.3-11.1)
[2021-07-17 05:36] LABS: Calcium 8.4 mg/dL (8.6-10.3); Chol/HDL Ratio 3.4 (0-4.9); Magnesium 1.6 mg/dL (1.6-2.6); Phosphorous 3.9 mg/dL (2.7-4.5); Potassium 3.4 mEq/L (3.5-5.1)
[2021-07-17 05:41] LABS: INR 4.5; Prothrombin Time 50.1 Seconds (9.4-12.1)
[2021-07-17] MEDS: predniSONE 20 MG TABLET PO SCH (07:34)
[2021-07-17] MEDS: Torsemide 20 MG TABLET PO SCH (07:34)
[2021-07-17] MEDS: allopurinoL 100 MG TABLET PO SCH (07:34)
[2021-07-17] MEDS: Aspirin Enteric Coated 81 MG Tablet PO SCH (07:34)
[2021-07-17] MEDS: Insulin LISPRO 300 UNITS/3 ML VIAL SUBQ SCH ×4 (07:35→21:36)
[2021-07-17] MEDS: Insulin DETEMIR 100 UNIT/ML X5UNITS SUBQ SCH ×2 (07:47→21:35)
[2021-07-17 07:50] LABS: Troponin I 0.14 ng/mL (< 0.04)
[2021-07-17 08:55] LABS: % Iron Saturation 9 % (20-55); Iron 29 mcg/dL (65-175); Transferrin 220 mg/dL (203-362)
[2021-07-17] MEDS ORDERED: Famotidine 20 MG TABLET PO SCH (09:00)
[2021-07-17 09:14] LABS: Ferritin 155 ng/mL (20-250)
[2021-07-17 09:25] LABS: Folate > 22.3 ng/mL (3.0-16.0); Vitamin B12 > 1500 pg/mL (250-1100)
[2021-07-17] MEDS ORDERED: Perflutren Lipid Microsphere 1.3 ML in 0.9 % Sodium Chloride 8.7 ML IVP PRN (10:40)
[2021-07-17] MEDS: Magnesium Oxide 400 MG TABLET PO SCH (12:13)
[2021-07-17] MEDS: Gabapentin 100 MG CAPSULE PO SCH (21:35)
[2021-07-17] MEDS: Latanoprost 2.5 ML BOTTLE BOTH EYES SCH (21:37)
[2021-07-17] MEDS: *HR* OxyCODONE/APAP 10/325 TABLET PO PRN (21:41)
[2021-07-18 05:43] LABS: Hematocrit 28.2 % (37.5-50.1); Hemoglobin 8.6 g/dL (12.9-16.9); Mean Corpuscular HGB Conc 30.5 g/dL (31.6-35.5); Mean Corpuscular Hemoglobin 27.7 pg (28.0-33.3); Platelet Count 332 K/mcL (140-400); Red Cell Distribution Width 20.3 % (11.5-14.5); White Blood Count 8.9 K/mcL (4.3-11.1)
[2021-07-18 05:48] LABS: INR 3.5; Prothrombin Time 38.8 Seconds (9.4-12.1)
[2021-07-18 06:11] LABS: Calcium 8.5 mg/dL (8.6-10.3); Magnesium 1.8 mg/dL (1.6-2.6); Potassium 3.4 mEq/L (3.5-5.1)
[2021-07-18] MEDS ORDERED: Iron Sucrose Complex 400 MG in 0.9 % Sodium Chloride 250 ML IVPB ONE (08:01)
[2021-07-18] MEDS: Magnesium Oxide 400 MG TABLET PO SCH (08:53)
[2021-07-18] MEDS: allopurinoL 100 MG TABLET PO SCH (08:53)
[2021-07-18] MEDS: predniSONE 20 MG TABLET PO SCH (08:53)
[2021-07-18] MEDS: Torsemide 20 MG TABLET PO SCH (08:53)
[2021-07-18] MEDS: Famotidine 20 MG TABLET PO SCH (08:53)
[2021-07-18] MEDS: Aspirin Enteric Coated 81 MG Tablet PO SCH (08:53)
[2021-07-18] MEDS: Insulin DETEMIR 100 UNIT/ML X5UNITS SUBQ SCH ×2 (08:54→19:58)
[2021-07-18] MEDS: Insulin LISPRO 300 UNITS/3 ML VIAL SUBQ SCH ×4 (08:54→19:58)
[2021-07-18] MEDS: Gabapentin 100 MG CAPSULE PO SCH (19:57)
[2021-07-18] MEDS: Latanoprost 2.5 ML BOTTLE BOTH EYES SCH (19:59)
[2021-07-18] MEDS: *HR* OxyCODONE/APAP 10/325 TABLET PO PRN (21:54)
[2021-07-19 03:26] LABS: Hematocrit 27.9 % (37.5-50.1); Hemoglobin 8.4 g/dL (12.9-16.9); Mean Corpuscular HGB Conc 30.1 g/dL (31.6-35.5); Mean Corpuscular Hemoglobin 27.2 pg (28.0-33.3); Mean Corpuscular Volume 90.3 fL (83.0-100.0); Mean Platelet Volume 9.1 fL (9.4-12.4); Platelet Count 315 K/mcL (140-400); Red Blood Count 3.09 M/mcL (4.19-5.50); Red Cell Distribution Width 20.9 % (11.5-14.5); White Blood Count 9.3 K/mcL (4.3-11.1)
[2021-07-19 03:33] LABS: INR 2.8; Prothrombin Time 30.9 Seconds (9.4-12.1)
[2021-07-19 03:41] LABS: Calcium 8.2 mg/dL (8.6-10.3); Magnesium 1.8 mg/dL (1.6-2.6); Potassium 4.2 mEq/L (3.5-5.1)
[2021-07-19 07:19] VITALS: BP 155/99; PULSE 70; TEMP 98.2; O2SAT 99
[2021-07-19] MEDS: Insulin LISPRO 300 UNITS/3 ML VIAL SUBQ SCH (07:50)
[2021-07-19] MEDS: allopurinoL 100 MG TABLET PO SCH (07:51)
[2021-07-19] MEDS: Torsemide 20 MG TABLET PO SCH (07:51)
[2021-07-19] MEDS: Famotidine 20 MG TABLET PO SCH (07:51)
[2021-07-19] MEDS: Insulin DETEMIR 100 UNIT/ML X5UNITS SUBQ SCH (07:52)
[2021-07-19] MEDS: predniSONE 20 MG TABLET PO SCH (07:52)
[2021-07-19] MEDS: Magnesium Oxide 400 MG TABLET PO SCH (07:52)
[2021-07-19] MEDS: Aspirin Enteric Coated 81 MG Tablet PO SCH (07:52)
== END 2021-07-19 12:15 | disposition home health service (06) | DRG 309 ==
LOC: 3NENU 13:19 → EMEROOARM 13:19 → SUATTDRO 17:19 → 3NENU 18:28
PROVIDERS: ADMIT Pharmacist; ATTEND Internal Medicine

== ENCOUNTER 2021-09-30 20:41 | Inpatient (IN) ==
[2021-09-30] MEDS ORDERED: Ipratropium/Albuterol Neb 3 ML ONE (20:56)
[2021-09-30] MEDS ORDERED: cefTRIAXone 1,000 MG in 0.9 % Sodium Chloride 10 ML IVP ONE (20:59)
[2021-09-30] MEDS ORDERED: methylPREDNISolone 125 MG/2 ML VIAL IVP ONE (20:59)
[2021-09-30] MEDS ORDERED: Ipratropium/Albuterol Neb 3 ML IH ONE (20:59)
[2021-09-30] MEDS ORDERED: Iopamidol - 370 500 ML MLS IVP ONE (20:59)
[2021-09-30 21:02] LABS: ABG Base Excess 1 mEq/L (-2 to 3); ABG HCO3 25 mEq/L (21-27); ABG Oxygen Saturation 88 % (95-98); ABG PCO2 36 mmHg (35-45); ABG PH 7.45 pH Units (7.32-7.45); ABG PO2 51 mmHg (85-104); ABG TCO2 26 mEq/L (20-26)
[2021-09-30 21:16] LABS: Basophils # 0.1 K/mcL (0.0-0.2); Basophils % 0.3 %; Eosinophils # 0.1 K/mcL (0.0-0.6); Eosinophils % 0.7 %; Hematocrit 31.4 % (37.5-50.1); Hemoglobin 9.6 g/dL (12.9-16.9); Immature Granulocytes % 0.5 % (0-4); Lymphocytes # 2.1 K/mcL (0.6-4.6); Lymphocytes % 10.8 %; Mean Corpuscular HGB Conc 30.6 g/dL (31.6-35.5); Mean Corpuscular Volume 91.5 fL (83.0-100.0); Mean Platelet Volume 8.5 fL (9.4-12.4); Monocytes % 5.5 %; Neutrophils # 15.6 K/mcL (1.6-8.9); Platelet Count 304 K/mcL (140-400); Red Blood Count 3.43 M/mcL (4.19-5.50); Segmented Neutrophils % 82.2 %
[2021-09-30 21:29] LABS: INR 3.7
[2021-09-30 21:34] LABS: Calcium 8.9 mg/dL (8.6-10.3); Potassium 3.8 mEq/L (3.5-5.1)
[2021-09-30 21:44] LABS: Troponin I 0.07 ng/mL (< 0.04)
[2021-09-30 21:52] LABS: Influenza A PCR Negative (Negative); Influenza B PCR Negative (Negative); Resp. Syncytial Virus PCR Negative (Negative)
[2021-09-30 21:59] LABS: SARS-CoV-2 by PCR (In House) Negative (Negative)
[2021-09-30] MEDS ORDERED: cefTRIAXone 1,000 MG in Water for inj. (sterile) 10 ML IVP ONE (22:40)
[2021-09-30] MEDS ORDERED: Azithromycin 500 MG in 0.9 % Sodium Chloride 250 ML IVPB ONE (22:40)
[2021-09-30] MEDS ORDERED: Aspirin 81 MG TAB.CHEW PO ONE (23:08)
[2021-09-30] MEDS ORDERED: Naloxone 0.4 MG/ML INJ IVP PRN (23:59)
[2021-09-30] MEDS ORDERED: Melatonin 3 MG TABLET PO PRN (23:59)
[2021-10-01] MEDS ORDERED: D5% in Water 1,000 ML IVC PRN (00:43)
[2021-10-01] MEDS ORDERED: Dextrose Gel 15 GM/37.5 ML TUBE PO PRN ×2 (00:43)
[2021-10-01] MEDS ORDERED: *HR* Dextrose 50 % in Water (Syg) 50 ML SYRINGE IVP PRN (00:43)
[2021-10-01 01:54] LABS: Calcium 8.5 mg/dL (8.6-10.3); Magnesium 2.2 mg/dL (1.6-2.6); Phosphorous 3.1 mg/dL (2.7-4.5); Potassium 4.2 mEq/L (3.5-5.1)
[2021-10-01 02:05] LABS: Hematocrit 28.6 % (37.5-50.1); Hemoglobin 8.7 g/dL (12.9-16.9); Mean Corpuscular HGB Conc 30.4 g/dL (31.6-35.5); Mean Corpuscular Hemoglobin 27.4 pg (28.0-33.3); Mean Corpuscular Volume 90.2 fL (83.0-100.0); Mean Platelet Volume 8.8 fL (9.4-12.4); Platelet Count 282 K/mcL (140-400); Red Blood Count 3.17 M/mcL (4.19-5.50); White Blood Count 20.3 K/mcL (4.3-11.1)
[2021-10-01] MEDS ORDERED: *HR* Heparin 5,000 UNIT/ML VIAL IVP ONE (02:13)
[2021-10-01] MEDS ORDERED: *HR* Heparin 5,000 UNIT/ML VIAL IVP PRN ×2 (02:13)
[2021-10-01] MEDS: Heparin 25,000UNIT/250ML 1/2NS 25,000 UNIT/250 ML IV.SOLN IVC SCH (03:26)
[2021-10-01] MEDS: Ipratropium/Albuterol Neb 3 ML IH SCH ×7 (03:50→23:15)
[2021-10-01] MEDS: cefTRIAXone 1,000 MG in Water for inj. (sterile) 10 ML IVP SCH (08:20)
[2021-10-01] MEDS: Insulin LISPRO 300 UNITS/3 ML VIAL SUBQ SCH ×4 (08:20→19:56)
[2021-10-01] MEDS: MethylPREDNISolone 40 MG/ML VIAL IVP SCH ×2 (08:20→17:04)
[2021-10-01] MEDS: Torsemide 20 MG TABLET PO SCH (08:21)
[2021-10-01] MEDS ORDERED: Bumetanide 1 MG/4 ML VIAL IVP SCH (09:00)
[2021-10-01] MEDS ORDERED: Azithromycin 500 MG in 0.9 % Sodium Chloride 250 ML IVPB SCH (09:00)
[2021-10-01 10:49] LABS: Heparin anti-factor XA UFH 0.06 IU/mL (0.30-0.70)
[2021-10-01 14:57] LABS: INR 4.6; Prothrombin Time 51.1 Seconds (9.4-12.1)
[2021-10-01] MEDS: Doxycycline 100 MG in 0.9 % Sodium Chloride Mini Bag 100 ML IVPB SCH (17:04)
[2021-10-01] MEDS ORDERED: Warfarin perPT PO PRN (18:00)
[2021-10-01] MEDS: Gabapentin 100 MG CAPSULE PO SCH (19:55)
[2021-10-01] MEDS: Latanoprost 2.5 ML BOTTLE BOTH EYES SCH (19:55)
[2021-10-01] MEDS ORDERED: Insulin DETEMIR 100 UNIT/ML X5UNITS SUBQ SCH (21:00)
[2021-10-02] MEDS: MethylPREDNISolone 40 MG/ML VIAL IVP SCH ×4 (00:33→23:43)
[2021-10-02] MEDS: Heparin 25,000UNIT/250ML 1/2NS 25,000 UNIT/250 ML IV.SOLN IVC SCH (00:38)
[2021-10-02 01:13] LABS: INR 5.5; Prothrombin Time 60.5 Seconds (9.4-12.1)
[2021-10-02] MEDS ORDERED: *HR* Phytonadione 5 MG TABLET PO ONE (01:38)
[2021-10-02] MEDS: Ipratropium/Albuterol Neb 3 ML IH SCH ×6 (03:44→23:20)
[2021-10-02] MEDS: Doxycycline 100 MG in 0.9 % Sodium Chloride Mini Bag 100 ML IVPB SCH ×2 (04:51→17:57)
[2021-10-02] MEDS: Famotidine 20 MG TABLET PO SCH (08:24)
[2021-10-02] MEDS: Torsemide 20 MG TABLET PO SCH (08:24)
[2021-10-02] MEDS: Aspirin Enteric Coated 81 MG Tablet PO SCH (08:24)
[2021-10-02] MEDS: Cyanocobalamin (B-12) 1,000 MCG TABLET PO SCH (08:24)
[2021-10-02] MEDS: cefTRIAXone 1,000 MG in Water for inj. (sterile) 10 ML IVP SCH (08:25)
[2021-10-02] MEDS: Pyridoxine (B-6) 50 MG TABLET PO SCH (08:25)
[2021-10-02] MEDS: allopurinoL 100 MG TABLET PO SCH (08:25)
[2021-10-02] MEDS: Insulin LISPRO 300 UNITS/3 ML VIAL SUBQ SCH ×4 (08:27→20:05)
[2021-10-02] MEDS: Insulin DETEMIR 100 UNIT/ML X5UNITS SUBQ SCH ×2 (08:51→20:08)
[2021-10-02] MEDS ORDERED: E-Z-HD (BARIUM SULF) SUSPENSION PO ONE (10:15)
[2021-10-02] MEDS ORDERED: E-Z-PAQUE (BARIUM SULF) SUSP 1 BOTTLE PO ONE (10:15)
[2021-10-02 12:16] LABS: Basophils % 0.1 %; Hematocrit 23.6 % (37.5-50.1); Hemoglobin 7.2 g/dL (12.9-16.9); Immature Granulocytes % 0.7 % (0-4); Lymphocytes # 0.4 K/mcL (0.6-4.6); Mean Corpuscular HGB Conc 30.5 g/dL (31.6-35.5); Mean Corpuscular Hemoglobin 27.8 pg (28.0-33.3); Mean Corpuscular Volume 91.1 fL (83.0-100.0); Mean Platelet Volume 9.2 fL (9.4-12.4); Monocytes # 0.4 K/mcL (0.0-1.3); Monocytes % 2.5 %; Neutrophils # 16.6 K/mcL (1.6-8.9); Platelet Count 255 K/mcL (140-400); Red Blood Count 2.59 M/mcL (4.19-5.50); Red Cell Distribution Width 19.4 % (11.5-14.5); Segmented Neutrophils % 94.7 %; White Blood Count 17.6 K/mcL (4.3-11.1)
[2021-10-02 12:37] LABS: Calcium 8.3 mg/dL (8.6-10.3); Potassium 4.2 mEq/L (3.5-5.1)
[2021-10-02] MEDS: Sennosides/Docusate Sodium TABLET PO PRN (17:51)
[2021-10-02] MEDS: Latanoprost 2.5 ML BOTTLE BOTH EYES SCH (20:04)
[2021-10-02] MEDS: Gabapentin 100 MG CAPSULE PO SCH (20:06)
[2021-10-03 02:07] LABS: Basophils % 0.1 %; Hematocrit 21.9 % (37.5-50.1); Hemoglobin 6.6 g/dL (12.9-16.9); Immature Granulocytes % 1.4 % (0-4); Lymphocytes # 0.6 K/mcL (0.6-4.6); Lymphocytes % 3.5 %; Mean Corpuscular HGB Conc 30.1 g/dL (31.6-35.5); Mean Corpuscular Hemoglobin 27.3 pg (28.0-33.3); Mean Corpuscular Volume 90.5 fL (83.0-100.0); Mean Platelet Volume 9.3 fL (9.4-12.4); Monocytes # 0.5 K/mcL (0.0-1.3); Monocytes % 2.8 %; Neutrophils # 14.9 K/mcL (1.6-8.9); Nucleated Red Blood Cells 0.4 /100 WBC (0); Platelet Count 267 K/mcL (140-400); Red Blood Count 2.42 M/mcL (4.19-5.50); Red Cell Distribution Width 19.2 % (11.5-14.5); Segmented Neutrophils % 92.2 %; White Blood Count 16.2 K/mcL (4.3-11.1)
[2021-10-03 02:18] LABS: INR 2.3; Prothrombin Time 25.6 Seconds (9.4-12.1)
[2021-10-03 02:28] LABS: Magnesium 2.1 mg/dL (1.6-2.6); Phosphorous 3.6 mg/dL (2.7-4.5)
[2021-10-03] MEDS: Ipratropium/Albuterol Neb 3 ML IH SCH ×5 (03:48→21:04)
[2021-10-03] MEDS: Doxycycline 100 MG in 0.9 % Sodium Chloride Mini Bag 100 ML IVPB SCH ×2 (05:11→17:16)
[2021-10-03] MEDS ORDERED: 0.9 % Sodium Chloride 250 ML IVC SCH (07:30)
[2021-10-03] MEDS: Insulin LISPRO 300 UNITS/3 ML VIAL SUBQ SCH ×4 (07:31→22:58)
[2021-10-03] MEDS: Torsemide 20 MG TABLET PO SCH (08:26)
[2021-10-03] MEDS: Cyanocobalamin (B-12) 1,000 MCG TABLET PO SCH (08:26)
[2021-10-03] MEDS: Pyridoxine (B-6) 50 MG TABLET PO SCH (08:27)
[2021-10-03] MEDS: allopurinoL 100 MG TABLET PO SCH (08:27)
[2021-10-03] MEDS: Famotidine 20 MG TABLET PO SCH (08:27)
[2021-10-03] MEDS: Aspirin Enteric Coated 81 MG Tablet PO SCH (08:27)
[2021-10-03] MEDS: cefTRIAXone 1,000 MG in Water for inj. (sterile) 10 ML IVP SCH (08:28)
[2021-10-03] MEDS: MethylPREDNISolone 40 MG/ML VIAL IVP SCH ×2 (08:29→17:16)
[2021-10-03] MEDS: Insulin DETEMIR 100 UNIT/ML X5UNITS SUBQ SCH ×2 (08:48→20:37)
[2021-10-03 10:31] LABS: Hematocrit 22.6 % (37.5-50.1); Hemoglobin 6.8 g/dL (12.9-16.9)
[2021-10-03] MEDS ORDERED: Lidocaine -MPF 2% 5 ML VIAL ONE (12:40)
[2021-10-03] MEDS ORDERED: EPHEDrine 50 MG/ML VIAL ONE (12:40)
[2021-10-03] MEDS ORDERED: *HR* Succinylcholine 200 MG/10 ML VIAL IVP ONE (12:40)
[2021-10-03] MEDS ORDERED: Ondansetron 4 MG/2 ML VIAL ONE (15:57)
[2021-10-03] MEDS: polyethylene glycoL 3350 17 GM POWD.PACK PO SCH (17:17)
[2021-10-03 18:44] LABS: Hematocrit 29.9 % (37.5-50.1)
[2021-10-03 18:46] LABS: Hemoglobin 8.9 g/dL (12.9-16.9)
[2021-10-03] MEDS: Gabapentin 100 MG CAPSULE PO SCH (20:36)
[2021-10-03] MEDS: Latanoprost 2.5 ML BOTTLE BOTH EYES SCH (20:37)
[2021-10-04] MEDS: MethylPREDNISolone 40 MG/ML VIAL IVP SCH ×2 (00:05→08:21)
[2021-10-04] MEDS: Ipratropium/Albuterol Neb 3 ML IH SCH ×7 (00:29→20:52)
[2021-10-04 02:51] LABS: Basophils # 0.1 K/mcL (0.0-0.2); Basophils % 0.3 %; Hematocrit 25.5 % (37.5-50.1); Hemoglobin 7.8 g/dL (12.9-16.9); Immature Granulocytes % 4.2 % (0-4); Lymphocytes # 0.5 K/mcL (0.6-4.6); Lymphocytes % 2.9 %; Mean Corpuscular HGB Conc 30.6 g/dL (31.6-35.5); Mean Corpuscular Hemoglobin 27.4 pg (28.0-33.3); Mean Corpuscular Volume 89.5 fL (83.0-100.0); Mean Platelet Volume 9.3 fL (9.4-12.4); Monocytes # 0.5 K/mcL (0.0-1.3); Neutrophils # 14.9 K/mcL (1.6-8.9); Nucleated Red Blood Cells 0.6 /100 WBC (0); Platelet Count 282 K/mcL (140-400); Red Blood Count 2.85 M/mcL (4.19-5.50); Red Cell Distribution Width 18.8 % (11.5-14.5); Segmented Neutrophils % 89.6 %; White Blood Count 16.6 K/mcL (4.3-11.1)
[2021-10-04 02:57] LABS: INR 1.5; Prothrombin Time 17.2 Seconds (9.4-12.1)
[2021-10-04 03:06] LABS: Calcium 8.4 mg/dL (8.6-10.3); Magnesium 2.3 mg/dL (1.6-2.6); Phosphorous 3.4 mg/dL (2.7-4.5); Potassium 4.4 mEq/L (3.5-5.1)
[2021-10-04] MEDS: Doxycycline 100 MG in 0.9 % Sodium Chloride Mini Bag 100 ML IVPB SCH (05:43)
[2021-10-04] MEDS: Pyridoxine (B-6) 50 MG TABLET PO SCH (08:20)
[2021-10-04] MEDS: Sennosides/Docusate Sodium TABLET PO PRN ×2 (08:20→17:08)
[2021-10-04] MEDS: Aspirin Enteric Coated 81 MG Tablet PO SCH (08:20)
[2021-10-04] MEDS: Famotidine 20 MG TABLET PO SCH (08:21)
[2021-10-04] MEDS: polyethylene glycoL 3350 17 GM POWD.PACK PO SCH (08:21)
[2021-10-04] MEDS: Cyanocobalamin (B-12) 1,000 MCG TABLET PO SCH (08:21)
[2021-10-04] MEDS: Torsemide 20 MG TABLET PO SCH (08:21)
[2021-10-04] MEDS: allopurinoL 100 MG TABLET PO SCH (08:21)
[2021-10-04] MEDS: cefTRIAXone 1,000 MG in Water for inj. (sterile) 10 ML IVP SCH (08:22)
[2021-10-04] MEDS: Insulin LISPRO 300 UNITS/3 ML VIAL SUBQ SCH ×5 (10:21→21:27)
[2021-10-04] MEDS: Insulin DETEMIR 100 UNIT/ML X5UNITS SUBQ SCH ×2 (10:22→20:11)
[2021-10-04 14:04] LABS: Hematocrit 26.8 % (37.5-50.1); Hemoglobin 8.1 g/dL (12.9-16.9)
[2021-10-04] MEDS ORDERED: *HR* Warfarin 2.5 MG TABLET PO ONE (19:03)
[2021-10-04] MEDS: Latanoprost 2.5 ML BOTTLE BOTH EYES SCH (20:10)
[2021-10-04] MEDS: Gabapentin 100 MG CAPSULE PO SCH (20:12)
[2021-10-05] MEDS: Ipratropium/Albuterol Neb 3 ML IH SCH ×4 (00:20→11:33)
[2021-10-05 01:30] LABS: Hematocrit 24.9 % (37.5-50.1); Hemoglobin 7.7 g/dL (12.9-16.9); Mean Corpuscular HGB Conc 30.9 g/dL (31.6-35.5); Mean Corpuscular Hemoglobin 27.6 pg (28.0-33.3); Mean Corpuscular Volume 89.2 fL (83.0-100.0); Mean Platelet Volume 9.4 fL (9.4-12.4); Nucleated Red Blood Cells 1.6 /100 WBC (0); Platelet Count 307 K/mcL (140-400); Red Blood Count 2.79 M/mcL (4.19-5.50); Red Cell Distribution Width 18.6 % (11.5-14.5); White Blood Count 19.1 K/mcL (4.3-11.1)
[2021-10-05 01:37] LABS: INR 1.5; Prothrombin Time 17.1 Seconds (9.4-12.1)
[2021-10-05 01:44] LABS: Calcium 8.3 mg/dL (8.6-10.3); Magnesium 2.1 mg/dL (1.6-2.6); Phosphorous 3.1 mg/dL (2.7-4.5); Potassium 3.9 mEq/L (3.5-5.1)
[2021-10-05 02:19] LABS: Eosinophils # 0.2 K/mcL (0.0-0.6); Lymphocytes # 1.3 K/mcL (0.6-4.6); Monocytes # 0.6 K/mcL (0.0-1.3); Platelet Estimate Normal (Normal)
[2021-10-05 07:46] VITALS: O2SAT 98
[2021-10-05 07:47] VITALS: BP 147/85; PULSE 68; TEMP 97.5
[2021-10-05] MEDS ORDERED: predniSONE 20 MG TABLET PO SCH (09:00)
[2021-10-05] MEDS: polyethylene glycoL 3350 17 GM POWD.PACK PO SCH (10:16)
[2021-10-05] MEDS: Torsemide 20 MG TABLET PO SCH (10:16)
[2021-10-05] MEDS: Aspirin Enteric Coated 81 MG Tablet PO SCH (10:17)
[2021-10-05] MEDS: Famotidine 20 MG TABLET PO SCH (10:17)
[2021-10-05] MEDS: Pyridoxine (B-6) 50 MG TABLET PO SCH (10:17)
[2021-10-05] MEDS: Cyanocobalamin (B-12) 1,000 MCG TABLET PO SCH (10:17)
[2021-10-05] MEDS: Insulin DETEMIR 100 UNIT/ML X5UNITS SUBQ SCH (10:17)
[2021-10-05] MEDS: allopurinoL 100 MG TABLET PO SCH (10:17)
[2021-10-05] MEDS: Insulin LISPRO 300 UNITS/3 ML VIAL SUBQ SCH ×4 (10:18→12:17)
[2021-10-05] MEDS ORDERED: *HR* Warfarin 2.5 MG TABLET PO ONE (18:00)
== END 2021-10-05 12:35 | disposition home health service (06) | DRG 871 ==
LOC: EMEROOARM 20:41 → 3NENU 23:32 → SUATTDRO 23:32 → 3NENU 10-01 00:45
PROVIDERS: ADMIT Internal Medicine; ATTEND Internal Medicine

== ENCOUNTER 2021-11-06 15:56 | Observation (INO) ==
[2021-11-06 20:37] LABS: Basophils % 0.2 %; Eosinophils # 0.2 K/mcL (0.0-0.6); Eosinophils % 1.7 %; Hematocrit 23.7 % (37.5-50.1); Hemoglobin 6.9 g/dL (12.9-16.9); Immature Granulocytes % 0.5 % (0-4); Lymphocytes # 1.5 K/mcL (0.6-4.6); Lymphocytes % 13.3 %; Mean Corpuscular HGB Conc 29.1 g/dL (31.6-35.5); Mean Corpuscular Hemoglobin 27.7 pg (28.0-33.3); Mean Corpuscular Volume 95.2 fL (83.0-100.0); Mean Platelet Volume 8.7 fL (9.4-12.4); Monocytes # 0.9 K/mcL (0.0-1.3); Monocytes % 8.1 %; Neutrophils # 8.3 K/mcL (1.6-8.9); Nucleated Red Blood Cells 0.2 /100 WBC (0); Platelet Count 300 K/mcL (140-400); Red Blood Count 2.49 M/mcL (4.19-5.50); Red Cell Distribution Width 19.4 % (11.5-14.5); Segmented Neutrophils % 76.2 %; White Blood Count 10.9 K/mcL (4.3-11.1)
[2021-11-06] MEDS ORDERED: Furosemide 40 MG/4 ML VIAL IVP ONE (20:39)
[2021-11-06 20:58] LABS: Calcium 8.9 mg/dL (8.6-10.3); Potassium 4.2 mEq/L (3.5-5.1)
[2021-11-06 21:04] LABS: Troponin I 0.09 ng/mL (< 0.04)
[2021-11-06] MEDS ORDERED: 0.9 % Sodium Chloride 250 ML ONE (21:21)
[2021-11-06] MEDS ORDERED: Melatonin 3 MG TABLET PO PRN (23:17)
[2021-11-06] MEDS ORDERED: Ondansetron 4 MG/2 ML VIAL IVP PRN (23:17)
[2021-11-06] MEDS ORDERED: Naloxone 0.4 MG/ML INJ IVP PRN (23:17)
[2021-11-06] MEDS ORDERED: Acetaminophen 325 MG TABLET PO PRN (23:17)
[2021-11-07 00:29] LABS: INR 2.4; Prothrombin Time 26.9 Seconds (9.4-12.1)
[2021-11-07 00:58] LABS: Influenza A PCR Negative (Negative); Influenza B PCR Negative (Negative); Resp. Syncytial Virus PCR Negative (Negative)
[2021-11-07 01:03] LABS: SARS-CoV-2 by PCR (In House) Negative (Negative)
[2021-11-07] MEDS ORDERED: Ipratropium/Albuterol Neb 3 ML IH PRN (01:18)
[2021-11-07 05:25] LABS: Hematocrit 24.2 % (37.5-50.1); Hemoglobin 7.1 g/dL (12.9-16.9); Mean Corpuscular HGB Conc 29.3 g/dL (31.6-35.5); Mean Corpuscular Hemoglobin 27.3 pg (28.0-33.3); Mean Corpuscular Volume 93.1 fL (83.0-100.0); Mean Platelet Volume 8.9 fL (9.4-12.4); Platelet Count 290 K/mcL (140-400); White Blood Count 9.2 K/mcL (4.3-11.1)
[2021-11-07 05:43] LABS: Calcium 8.3 mg/dL (8.6-10.3); Potassium 3.5 mEq/L (3.5-5.1)
[2021-11-07] MEDS ORDERED: *HR* Dextrose 50 % in Water (Syg) 50 ML SYRINGE IVP PRN (07:40)
[2021-11-07] MEDS ORDERED: Dextrose Gel 15 GM/37.5 ML TUBE PO PRN ×2 (07:40)
[2021-11-07] MEDS ORDERED: D5% in Water 1,000 ML IVC PRN (07:40)
[2021-11-07] MEDS ORDERED: Insulin DETEMIR 100 UNIT/ML X5UNITS SUBQ SCH (09:00)
[2021-11-07] MEDS: Furosemide 40 MG/4 ML VIAL IVP SCH (09:13)
[2021-11-07 10:19] LABS: Hematocrit 24.8 % (37.5-50.1); Hemoglobin 7.3 g/dL (12.9-16.9)
[2021-11-07] MEDS: Insulin LISPRO 300 UNITS/3 ML VIAL SUBQ SCH ×2 (12:53→16:13)
[2021-11-07 12:55] LABS: INR 2.2; Prothrombin Time 24.6 Seconds (9.4-12.1)
[2021-11-07] MEDS ORDERED: Sennosides/Docusate Sodium TABLET PO PRN (13:19)
[2021-11-07] MEDS ORDERED: Warfarin perPT PO PRN (18:00)
[2021-11-07] MEDS ORDERED: *HR* Warfarin 5 MG TABLET PO ONE (18:00)
[2021-11-07] MEDS: Insulin DETEMIR 100 UNIT/ML X5UNITS SUBQ SCH (20:55)
[2021-11-07] MEDS ORDERED: Gabapentin 100 MG CAPSULE PO SCH (21:00)
[2021-11-07] MEDS ORDERED: Latanoprost 2.5 ML BOTTLE BOTH EYES SCH (21:00)
[2021-11-07] MEDS ORDERED: Insulin LISPRO 300 UNITS/3 ML VIAL SUBQ SCH (21:00)
[2021-11-08 05:18] LABS: Basophils % 0.2 %; Eosinophils # 0.2 K/mcL (0.0-0.6); Eosinophils % 2.5 %; Hematocrit 23.1 % (37.5-50.1); Immature Granulocytes % 0.4 % (0-4); Lymphocytes % 12.8 %; Mean Corpuscular HGB Conc 30.3 g/dL (31.6-35.5); Mean Corpuscular Volume 92.4 fL (83.0-100.0); Mean Platelet Volume 8.5 fL (9.4-12.4); Monocytes # 0.7 K/mcL (0.0-1.3); Monocytes % 8.8 %; Platelet Count 258 K/mcL (140-400); Red Cell Distribution Width 18.6 % (11.5-14.5); Segmented Neutrophils % 75.3 %
[2021-11-08 05:24] LABS: INR 1.9; Prothrombin Time 20.8 Seconds (9.4-12.1)
[2021-11-08 05:39] LABS: Calcium 8.4 mg/dL (8.6-10.3); Potassium 3.5 mEq/L (3.5-5.1)
[2021-11-08 07:15] VITALS: BP 133/75; PULSE 62; TEMP 98.6; O2SAT 96
[2021-11-08] MEDS: Insulin LISPRO 300 UNITS/3 ML VIAL SUBQ SCH (08:17)
[2021-11-08] MEDS ORDERED: allopurinoL 100 MG TABLET PO SCH (09:00)
[2021-11-08] MEDS ORDERED: Famotidine 20 MG TABLET PO SCH (09:00)
[2021-11-08] MEDS ORDERED: Pyridoxine (B-6) 50 MG TABLET PO SCH (09:00)
[2021-11-08] MEDS ORDERED: Cyanocobalamin (B-12) 1,000 MCG TABLET PO SCH (09:00)
[2021-11-08] MEDS ORDERED: Aspirin Enteric Coated 81 MG Tablet PO SCH (09:00)
[2021-11-08] MEDS: Furosemide 40 MG/4 ML VIAL IVP SCH (10:13)
[2021-11-08] MEDS: Insulin DETEMIR 100 UNIT/ML X5UNITS SUBQ SCH (10:23)
[2021-11-08] MEDS ORDERED: *HR* Warfarin 5 MG TABLET PO ONE (18:00)
== END 2021-11-08 13:00 | disposition home or self-care (01) ==
LOC: 2ANU 15:56 → EMEROOARM 15:56 → SUATTDRO 11-07 05:14 → 2ANU 11-07 06:32
PROVIDERS: ADMIT Internal Medicine; ATTEND Family Medicine